=== PATIENT | female | born 1935 | race Caucasian/White ===

== ENCOUNTER 2019-11-20 10:01 | Outpatient (REF) | payer MEDICARE, OTHER, SELFPAY ==
[2019-11-20 11:59] LABS: Alanine Aminotransferase 12 U/L (0-31); Albumin Level 4.6 g/dL (3.5-5.0); Alkaline Phosphatase 35 U/L (39-117); Anion Gap 10 (12-20); Aspartate Amino Transferase 25 U/L (5-31); Bilirubin Total 0.3 mg/dL (0.0-1.0); Blood Urea Nitrogen 14 mg/dL (9-16); Calcium 9.6 mg/dL (8.4-10.2); Carbon Dioxide 28 mmol/L (22-29); Chloride 98 mmol/L (96-108); Cholesterol 212 mg/dL; Estimated Glomerular Filt Rate > 60; Glucose Fasting 101 mg/dL (60-99); HDL Cholesterol 91 mg/dL; LDL Cholesterol Calculated 111 mg/dl; Potassium 4.4 mmol/l (3.3-5.1); Sodium 132 mmol/L (135-145); Total Protein 7.1 g/dL (6.5-8.0); Triglycerides 54 mg/dL
[2019-11-20 12:29] LABS: Creatinine Urine 46.53 mg/dL; Microalbum/Creatinine Ratio Ur 32.2 ug/mg cr
== END 2019-11-20 10:02 | disposition home or self-care (01) ==
LOC: HO.LAB 10:01
PROVIDERS: Visit Provider Family Medicine
DX: Z00.00 Encounter for general adult medical examination without abnormal findings (principal); I10 Essential (primary) hypertension
CPT/HCPCS: 80053; 80061; 82043; 84443

== ENCOUNTER 2020-03-12 | Outpatient (REF) | payer MEDICARE, OTHER, SELFPAY | END 2020-03-12 00:01 | disposition home or self-care (01) | LOC: HO.VC | PROVIDERS: Visit Provider Internal Medicine | DX: Z23 Encounter for immunization (principal) | CPT/HCPCS: 0011A ==

== ENCOUNTER 2020-04-08 | Outpatient (REF) | payer MEDICARE, OTHER, SELFPAY | END 2020-04-08 00:01 | disposition home or self-care (01) | LOC: HO.VC | PROVIDERS: Visit Provider Internal Medicine | DX: Z23 Encounter for immunization (principal) | CPT/HCPCS: 0012A ==

== ENCOUNTER 2020-12-17 08:12 | Outpatient (REF) | payer MEDICARE, OTHER, SELFPAY ==
[2020-12-17 08:44] LABS: MANUAL DIFF FLAG NO
[2020-12-17 08:48] LABS: Basophils Percent Auto 0.7 % (0-2); Eosinophils Absolute Auto 0.2 X10*3/uL (0.0-0.4); Hemoglobin 11.7 g/dl (12.0-16.0); Imm Gran Abs Auto 0.01 X10*3/uL (0.00-0.03); Imm Gran Pct Auto 0.2 % (0.0-0.4); Lymphocytes Absolute Auto 1.9 X10*3/uL (1.2-4.9); Lymphocytes Percent Auto 34.2 % (20-40); Mean Corpuscular HGB Conc 33.4 g/dl (31.0-35.0); Mean Corpuscular Hemoglobin 32.7 pg (27.0-33.0); Mean Corpuscular Volume 97.8 fL (80.0-98.0); Mean Platelet Volume 10.9 fL (9.4-12.3); Monocytes Absolute Auto 0.6 X10*3/uL (0.1-1.2); Monocytes Percent Auto 10.3 % (2-11); Neutrophils Absolute Auto 2.9 x10*3/uL (2.0-8.3); Neutrophils Percent Auto 51.6 % (45-73); Platelet Count 244 X10*3/uL (160-400); Red Blood Count 3.58 X10*6/uL (4.20-5.50); Red Cell Distribution Width 13.2 % (11.0-16.0); White Blood Count 5.6 X10*3/uL (4.8-10.8)
[2020-12-17 09:13] LABS: Appearance Urine CLEAR; Color Urine YELLOW; Glucose Urine UA NEG (NEG); Leukocyte Esterase Urine NEG (NEG); Nitrite Urine NEG (NEG); Urine Blood NEG (NEG); Urine Ketones NEG (NEG); Urine Protein NEG (NEG-TRACE)
[2020-12-17 09:21] LABS: Alanine Aminotransferase 12 U/L (0-31); Albumin Level 4.5 g/dL (3.5-5.0); Alkaline Phosphatase 46 U/L (39-117); Anion Gap 11 (12-20); Aspartate Amino Transferase 26 U/L (5-31); Bilirubin Total 0.5 mg/dL (0.0-1.0); Blood Urea Nitrogen 18 mg/dL (9-16); Calcium 9.7 mg/dL (8.4-10.2); Carbon Dioxide 28 mmol/L (22-29); Chloride 103 mmol/L (96-108); Cholesterol 201 mg/dL; Estimated Glomerular Filt Rate > 60; Glucose Fasting 95 mg/dL (60-99); HDL Cholesterol 87 mg/dL; LDL Cholesterol Calculated 101 mg/dl; Sodium 138 mmol/L (135-145); Total Protein 7.2 g/dL (6.5-8.0); Triglycerides 67 mg/dL
[2020-12-17 09:36] LABS: Creatinine Urine 107.09 mg/dL; Microalbum/Creatinine Ratio Ur 10.2 ug/mg cr
[2020-12-17 09:41] LABS: TSH reflex Free T4 5.64 uIU/mL (0.32-4.0)
[2020-12-17 10:31] LABS: Free T4 (Free Thyroxine) 1.18 ng/dL (0.71-1.85)
== END 2020-12-17 08:13 | disposition home or self-care (01) ==
LOC: HO.LAB 08:12
PROVIDERS: PCP Family Medicine; Visit Provider Family Medicine
DX: Z00.00 Encounter for general adult medical examination without abnormal findings (principal); I10 Essential (primary) hypertension
CPT/HCPCS: 36415; 80053; 80061; 81003; 82043; 84439; 84443; 85025

== ENCOUNTER 2021-02-16 11:31 | Outpatient (REF) | payer MEDICARE, OTHER, SELFPAY ==
[2021-02-16 13:26] LABS: MANUAL DIFF FLAG NO
[2021-02-16 13:29] LABS: Basophils Percent Auto 0.4 % (0-2); Eosinophils Absolute Auto 0.1 X10*3/uL (0.0-0.4); Eosinophils Percent Auto 0.9 % (0-4); Hematocrit 35.5 % (37.0-47.0); Hemoglobin 11.7 g/dl (12.0-16.0); Imm Gran Abs Auto 0.01 X10*3/uL (0.00-0.03); Imm Gran Pct Auto 0.2 % (0.0-0.4); Mean Corpuscular Hemoglobin 32.4 pg (27.0-33.0); Mean Corpuscular Volume 98.3 fL (80.0-98.0); Mean Platelet Volume 11.1 fL (9.4-12.3); Monocytes Absolute Auto 0.4 X10*3/uL (0.1-1.2); Monocytes Percent Auto 7.4 % (2-11); Neutrophils Absolute Auto 3.9 x10*3/uL (2.0-8.3); Neutrophils Percent Auto 73.1 % (45-73); Platelet Count 220 X10*3/uL (160-400); Red Blood Count 3.61 X10*6/uL (4.20-5.50); Red Cell Distribution Width 13.3 % (11.0-16.0); White Blood Count 5.4 X10*3/uL (4.8-10.8)
[2021-02-16 13:50] LABS: Anion Gap 14 (12-20); Blood Urea Nitrogen 17 mg/dL (9-16); Calcium 10.2 mg/dL (8.4-10.2); Carbon Dioxide 27 mmol/L (22-29); Chloride 103 mmol/L (96-108); Estimated Glomerular Filt Rate > 60; Glucose Random 94 mg/dL (60-115); Potassium 4.3 mmol/L (3.3-5.1)
[2021-02-16 13:57] LABS: Sodium 140 mmol/L (135-145)
[2021-02-16 14:12] LABS: TSH reflex Free T4 3.06 uIU/mL (0.32-4.0)
[2021-02-16 14:13] LABS: Free T4 (Free Thyroxine) 1.23 ng/dL (0.71-1.85); Thyroid Stimulating Hormone 2.91 uIU/mL (0.32-4.0)
[2021-02-17 08:07] LABS: Triiodothyronine T3 Total 102 ng/dL (76-181)
== END 2021-02-16 11:32 | disposition home or self-care (01) ==
LOC: HO.WFDLDS 11:31
PROVIDERS: Visit Provider Family Medicine
DX: Z00.00 Encounter for general adult medical examination without abnormal findings (principal); I10 Essential (primary) hypertension; E03.9 Hypothyroidism, unspecified
CPT/HCPCS: 36415; 80048; 84439; 84443; 84480; 85025

== ENCOUNTER 2021-08-17 11:31 | Outpatient (REF) | payer MEDICARE, OTHER, SELFPAY ==
[2021-08-17 13:22] LABS: MANUAL DIFF FLAG NO
[2021-08-17 13:34] LABS: Basophils Percent Auto 0.5 % (0-2); Eosinophils Absolute Auto 0.1 X10*3/uL (0.0-0.4); Eosinophils Percent Auto 0.8 % (0-4); Hemoglobin 12.1 g/dl (12.0-16.0); Imm Gran Abs Auto 0.02 X10*3/uL (0.00-0.03); Imm Gran Pct Auto 0.3 % (0.0-0.4); Lymphocytes Absolute Auto 1.2 X10*3/uL (1.2-4.9); Lymphocytes Percent Auto 20.8 % (20-40); Mean Corpuscular HGB Conc 34.6 g/dl (31.0-35.0); Mean Corpuscular Hemoglobin 33.6 pg (27.0-33.0); Mean Corpuscular Volume 97.2 fL (80.0-98.0); Mean Platelet Volume 10.8 fL (9.4-12.3); Monocytes Absolute Auto 0.6 X10*3/uL (0.1-1.2); Monocytes Percent Auto 9.3 % (2-11); Neutrophils Percent Auto 68.3 % (45-73); Platelet Count 231 X10*3/uL (160-400); Red Cell Distribution Width 13.8 % (11.0-16.0); White Blood Count 5.9 X10*3/uL (4.8-10.8)
[2021-08-17 14:21] LABS: Free T4 (Free Thyroxine) 1.22 ng/dL (0.71-1.85)
[2021-08-19 05:06] LABS: Triiodothyronine T3 Total 69 ng/dL (76-181)
== END 2021-08-17 11:32 | disposition home or self-care (01) ==
LOC: HO.WFDLDS 11:31
PROVIDERS: Visit Provider Family Medicine
DX: Z00.00 Encounter for general adult medical examination without abnormal findings (principal); E03.9 Hypothyroidism, unspecified; D64.9 Anemia, unspecified
CPT/HCPCS: 36415; 84439; 84443; 84480; 85025

== ENCOUNTER 2021-10-19 13:02 | Outpatient (REF) | payer MEDICARE, OTHER, SELFPAY ==
[2021-10-19 13:19] LABS: MANUAL DIFF FLAG NO
[2021-10-19 13:45] LABS: Basophils Absolute Auto 0.1 X10*3/uL (0.0-0.2); Basophils Percent Auto 0.8 % (0-2); Eosinophils Absolute Auto 0.1 X10*3/uL (0.0-0.4); Eosinophils Percent Auto 1.1 % (0-4); Hematocrit 35.1 % (37.0-47.0); Hemoglobin 11.8 g/dl (12.0-16.0); Imm Gran Abs Auto 0.01 X10*3/uL (0.00-0.03); Imm Gran Pct Auto 0.2 % (0.0-0.4); Lymphocytes Absolute Auto 1.8 X10*3/uL (1.2-4.9); Lymphocytes Percent Auto 28.8 % (20-40); Mean Corpuscular HGB Conc 33.6 g/dl (31.0-35.0); Mean Corpuscular Hemoglobin 32.8 pg (27.0-33.0); Mean Corpuscular Volume 97.5 fL (80.0-98.0); Mean Platelet Volume 10.7 fL (9.4-12.3); Monocytes Absolute Auto 0.7 X10*3/uL (0.1-1.2); Monocytes Percent Auto 11.7 % (2-11); Neutrophils Absolute Auto 3.5 x10*3/uL (2.0-8.3); Neutrophils Percent Auto 57.4 % (45-73); Platelet Count 244 X10*3/uL (160-400); Red Cell Distribution Width 13.2 % (11.0-16.0); White Blood Count 6.2 X10*3/uL (4.8-10.8)
[2021-10-19 14:30] LABS: Alanine Aminotransferase 15 U/L (0-31); Albumin Level 4.7 g/dL (3.5-5.0); Alkaline Phosphatase 39 U/L (39-117); Anion Gap 17 (12-20); Aspartate Amino Transferase 25 U/L (5-31); Bilirubin Total 0.4 mg/dL (0.0-1.0); Blood Urea Nitrogen 16 mg/dL (9-16); Calcium 10.1 mg/dL (8.4-10.2); Carbon Dioxide 24 mmol/L (22-29); Chloride 101 mmol/L (96-108); Cholesterol 209 mg/dL; Estimated Glomerular Filt Rate > 60; Glucose Fasting 102 mg/dL (60-99); HDL Cholesterol 97 mg/dL; LDL Cholesterol Calculated 99 mg/dl; Potassium 5.1 mmol/L (3.3-5.1); Sodium 137 mmol/L (135-145); Total Protein 7.6 g/dL (6.5-8.0); Triglycerides 65 mg/dL
[2021-10-19 14:39] LABS: TSH reflex Free T4 0.32 uIU/mL (0.32-4.0)
[2021-10-19 14:47] LABS: Appearance Urine Clear; Color Urine Yellow; Glucose Urine UA Negative (Negative); Leukocyte Esterase Urine Trace (Negative); Nitrite Urine Negative (Negative); PH 7.5 (5.0-9.0); Urine Blood Negative (Negative); Urine Ketones Negative (Negative); Urine Protein Negative (Neg-Trace)
[2021-10-19 14:50] LABS: Bacteria Urine None Seen (None Seen); Hyaline Casts Urine 0-2 /LPF (0-2); RBC Urine 0-2 /HPF (0-2); Squamous Epithelial Cell Urine 0-2 /HPF (0-2); WBC Urine 0-5 /HPF (0-5)
[2021-10-19 15:53] LABS: Creatinine Urine 45.24 mg/dL; Microalbum/Creatinine Ratio Ur 28.7 ug/mg cr
== END 2021-10-19 13:03 | disposition home or self-care (01) ==
LOC: HO.LAB 13:02
PROVIDERS: PCP Family Medicine; Visit Provider Family Medicine
DX: Z00.00 Encounter for general adult medical examination without abnormal findings (principal); I10 Essential (primary) hypertension
CPT/HCPCS: 36415; 80053; 80061; 81001; 82043; 84443; 85025

== ENCOUNTER 2021-12-16 11:50 | Outpatient (REF) | payer MEDICARE, OTHER, SELFPAY ==
[2021-12-16 12:26] LABS: MANUAL DIFF FLAG NO
[2021-12-16 12:36] LABS: Basophils Percent Auto 0.7 % (0-2); Eosinophils Absolute Auto 0.1 X10*3/uL (0.0-0.4); Eosinophils Percent Auto 1.9 % (0-4); Hematocrit 36.8 % (37.0-47.0); Hemoglobin 12.1 g/dl (12.0-16.0); Imm Gran Abs Auto 0.02 X10*3/uL (0.00-0.03); Imm Gran Pct Auto 0.4 % (0.0-0.4); Lymphocytes Absolute Auto 1.5 X10*3/uL (1.2-4.9); Lymphocytes Percent Auto 28.2 % (20-40); Mean Corpuscular HGB Conc 32.9 g/dl (31.0-35.0); Mean Corpuscular Hemoglobin 32.3 pg (27.0-33.0); Mean Corpuscular Volume 98.1 fL (80.0-98.0); Mean Platelet Volume 10.8 fL (9.4-12.3); Monocytes Absolute Auto 0.5 X10*3/uL (0.1-1.2); Monocytes Percent Auto 9.8 % (2-11); Neutrophils Absolute Auto 3.2 x10*3/uL (2.0-8.3); Platelet Count 240 X10*3/uL (160-400); Red Blood Count 3.75 X10*6/uL (4.20-5.50); Red Cell Distribution Width 13.3 % (11.0-16.0); White Blood Count 5.4 X10*3/uL (4.8-10.8)
[2021-12-16 13:09] LABS: Alanine Aminotransferase 15 U/L (0-31); Albumin Level 4.9 g/dL (3.5-5.0); Alkaline Phosphatase 47 U/L (39-117); Anion Gap 18 (12-20); Aspartate Amino Transferase 27 U/L (5-31); Bilirubin Total 0.3 mg/dL (0.0-1.0); Blood Urea Nitrogen 15 mg/dL (9-16); Calcium 10.7 mg/dL (8.4-10.2); Carbon Dioxide 24 mmol/L (22-29); Chloride 102 mmol/L (96-108); Cholesterol 213 mg/dL; Estimated Glomerular Filt Rate > 60; Glucose Fasting 102 mg/dL (60-99); HDL Cholesterol 100 mg/dL; LDL Cholesterol Calculated 100 mg/dl; Potassium 4.6 mmol/L (3.3-5.1); Sodium 139 mmol/L (135-145); Total Protein 7.7 g/dL (6.5-8.0); Triglycerides 66 mg/dL
[2021-12-16 13:23] LABS: Free T4 (Free Thyroxine) 1.78 ng/dL (0.71-1.85); Thyroid Stimulating Hormone 0.21 uIU/mL (0.32-4.0)
[2021-12-16 14:11] LABS: Appearance Urine Clear; Color Urine Yellow; Glucose Urine UA Negative (Negative); Leukocyte Esterase Urine Negative (Negative); Nitrite Urine Negative (Negative); Specific Gravity - Urine 1.015 (1.005-1.025); Urine Blood Negative (Negative); Urine Ketones Negative (Negative); Urine Protein Negative (Neg-Trace)
[2021-12-16 15:05] LABS: Creatinine Urine 72.86 mg/dL; Microalbum/Creatinine Ratio Ur 13.7 ug/mg cr
[2021-12-18 05:47] LABS: Triiodothyronine T3 Total 98 ng/dL (76-181)
== END 2021-12-16 11:51 | disposition home or self-care (01) ==
LOC: HO.LAB 11:50
PROVIDERS: PCP Family Medicine; Visit Provider Family Medicine
DX: Z00.00 Encounter for general adult medical examination without abnormal findings (principal); E03.9 Hypothyroidism, unspecified; I10 Essential (primary) hypertension
CPT/HCPCS: 36415; 80053; 80061; 81003; 82043; 84439; 84443; 84480; 85025

== ENCOUNTER 2022-02-10 12:51 | Outpatient (REF) | payer MEDICARE, OTHER, SELFPAY ==
[2022-02-10 13:05] LABS: MANUAL DIFF FLAG NO
[2022-02-10 14:15] LABS: Basophils Absolute Auto 0.1 X10*3/uL (0.0-0.2); Basophils Percent Auto 0.6 % (0-2); Eosinophils Absolute Auto 0.1 X10*3/uL (0.0-0.4); Eosinophils Percent Auto 1.2 % (0-4); Hematocrit 35.2 % (37.0-47.0); Hemoglobin 11.5 g/dl (12.0-16.0); Imm Gran Abs Auto 0.02 X10*3/uL (0.00-0.03); Imm Gran Pct Auto 0.2 % (0.0-0.4); Lymphocytes Absolute Auto 1.8 X10*3/uL (1.2-4.9); Lymphocytes Percent Auto 21.4 % (20-40); Mean Corpuscular HGB Conc 32.7 g/dl (31.0-35.0); Mean Corpuscular Hemoglobin 31.9 pg (27.0-33.0); Mean Corpuscular Volume 97.8 fL (80.0-98.0); Monocytes Absolute Auto 0.7 X10*3/uL (0.1-1.2); Monocytes Percent Auto 8.8 % (2-11); Neutrophils Absolute Auto 5.6 x10*3/uL (2.0-8.3); Neutrophils Percent Auto 67.8 % (45-73); Platelet Count 269 X10*3/uL (160-400); Red Cell Distribution Width 13.2 % (11.0-16.0); White Blood Count 8.3 X10*3/uL (4.8-10.8)
[2022-02-10 14:20] LABS: Appearance Urine Clear; Color Urine Yellow; Glucose Urine UA Negative (Negative); Leukocyte Esterase Urine Trace (Negative); Nitrite Urine Negative (Negative); PH 7.5 (5.0-9.0); Specific Gravity - Urine 1.015 (1.005-1.025); UMIC TRIGGER UA YES; Urine Blood Negative (Negative); Urine Ketones Negative (Negative); Urine Protein Negative (Neg-Trace)
[2022-02-10 14:24] LABS: Estimated Average Glucose 100 mg/dL; Hemoglobin A1c % 5.1 %
[2022-02-10 14:27] LABS: Bacteria Urine None Seen (None Seen); Hyaline Casts Urine 0-2 /LPF (0-2); RBC Urine 0-2 /HPF (0-2); Squamous Epithelial Cell Urine 0-2 /HPF (0-2); WBC Urine 0-5 /HPF (0-5)
[2022-02-10 14:38] LABS: Anion Gap 14 (12-20); Blood Urea Nitrogen 20 mg/dL (9-16); Calcium 10.3 mg/dL (8.4-10.2); Carbon Dioxide 25 mmol/L (22-29); Chloride 101 mmol/L (96-108); Estimated Glomerular Filt Rate > 60; Glucose Random 101 mg/dL (60-115); Potassium 4.4 mmol/L (3.3-5.1); Sodium 136 mmol/L (135-145)
[2022-02-10 14:46] LABS: Free T4 (Free Thyroxine) 1.34 ng/dL (0.71-1.85)
[2022-02-10 14:52] LABS: TSH reflex Free T4 0.76 uIU/mL (0.32-4.0)
[2022-02-11 10:23] LABS: Triiodothyronine T3 Total 85 ng/dL (76-181)
== END 2022-02-10 12:52 | disposition home or self-care (01) ==
LOC: HO.LAB 12:51
PROVIDERS: PCP Family Medicine; Visit Provider Family Medicine
DX: Z00.00 Encounter for general adult medical examination without abnormal findings (principal); E03.9 Hypothyroidism, unspecified; R73.01 Impaired fasting glucose; D64.9 Anemia, unspecified
CPT/HCPCS: 36415; 80048; 81001; 83036; 84439; 84443; 84480; 85025

== ENCOUNTER 2022-02-26 15:18 | Outpatient (REF) | payer MEDICARE, OTHER, SELFPAY ==
--- NOTE | ~2022-02-26 | US_ITS ---
EXAMINATION: US EXTRACRANIAL CAROTID DUPLEX, BILATERAL CLINICAL INFORMATION: Carotid bruit COMPARISON: Carotid duplex on 05/24/16 TECHNIQUE: Real-time ultrasound and Doppler techniques (integrating B-mode 2-D vascular images, Doppler spectral analysis and color-flow Doppler imaging) were utilized to interrogate the extracranial carotid arteries, the vertebral arteries and proximal subclavian arteries bilaterally. The degree of stenosis is determined by criteria similar to NASCET. FINDINGS: Right Side: 1. There is mild atherosclerotic plaque seen in the bifurcation/proximal ICA region. 2. The common carotid artery PSV proximally is 117 cm/s and distally 80 cm/s. 3. The proximal internal carotid artery velocities are 65 cm/s systolic and 6 cm/s diastolic. 4. The proximal external carotid artery PSV is 97 cm/s. 5. The vertebral artery shows antegrade flow. 6. The subclavian artery waveforms are normal. Left Side: 1. There is mild atherosclerotic plaque seen in the bifurcation/proximal ICA region. 2. The common carotid artery PSV proximally is 108 cm/s and distally 85 cm/s. 3. The proximal internal carotid artery velocities are 89 cm/s systolic and 14 cm/s diastolic. 4. The proximal external carotid artery PSV is 79 cm/s. 5. The vertebral artery shows antegrade flow. 6. The subclavian artery waveforms are normal. US/US carotid duplex BI IMPRESSION: 1. RIGHT: Minimal, non-hemodynamically significant stenosis of the proximal right internal carotid artery corresponding to a 0-49% stenosis by velocity criteria. 2. LEFT: Minimal, non-hemodynamically significant stenosis of the proximal left internal carotid artery corresponding to a 0-49% stenosis by velocity criteria. 3. There is mild progression of disease on the right compared to the prior exam on 05/24/16.
== END 2022-02-26 15:19 | disposition home or self-care (01) ==
LOC: HO.US 15:18
PROVIDERS: PCP Family Medicine; Visit Provider Family Medicine
DX: R09.89 Other specified symptoms and signs involving the circulatory and respiratory systems (principal)
CPT/HCPCS: 93880

== ENCOUNTER 2022-04-21 14:27 | Outpatient (REF) | payer MEDICARE, OTHER, SELFPAY ==
[2022-04-21 14:45] LABS: MANUAL DIFF FLAG NO
[2022-04-21 15:56] LABS: Appearance Urine Clear; Color Urine Yellow; Glucose Urine UA Negative (Negative); Leukocyte Esterase Urine Negative (Negative); Nitrite Urine Negative (Negative); Urine Blood Negative (Negative); Urine Ketones Trace mg/dL (Negative); Urine Protein Negative (Neg-Trace)
[2022-04-21 15:56] LABS: Basophils Absolute Auto 0.1 X10*3/uL (0.0-0.2); Basophils Percent Auto 0.7 % (0-2); Eosinophils Absolute Auto 0.1 X10*3/uL (0.0-0.4); Eosinophils Percent Auto 1.4 % (0-4); Hematocrit 35.2 % (37.0-47.0); Hemoglobin 11.5 g/dl (12.0-16.0); Imm Gran Abs Auto 0.02 X10*3/uL (0.00-0.03); Imm Gran Pct Auto 0.3 % (0.0-0.4); Lymphocytes Percent Auto 27.9 % (20-40); Mean Corpuscular HGB Conc 32.7 g/dl (31.0-35.0); Mean Corpuscular Hemoglobin 31.8 pg (27.0-33.0); Mean Corpuscular Volume 97.2 fL (80.0-98.0); Mean Platelet Volume 10.5 fL (9.4-12.3); Monocytes Absolute Auto 0.8 X10*3/uL (0.1-1.2); Monocytes Percent Auto 10.5 % (2-11); Neutrophils Absolute Auto 4.2 x10*3/uL (2.0-8.3); Neutrophils Percent Auto 59.2 % (45-73); Platelet Count 297 X10*3/uL (160-400); Red Blood Count 3.62 X10*6/uL (4.20-5.50); Red Cell Distribution Width 14.1 % (11.0-16.0); White Blood Count 7.2 X10*3/uL (4.8-10.8)
[2022-04-21 16:22] LABS: Alanine Aminotransferase 15 U/L (0-31); Albumin Level 4.7 g/dL (3.5-5.0); Alkaline Phosphatase 45 U/L (39-117); Anion Gap 16 (12-20); Aspartate Amino Transferase 27 U/L (5-31); Bilirubin Total 0.5 mg/dL (0.0-1.0); Blood Urea Nitrogen 18 mg/dL (9-16); Calcium 10.1 mg/dL (8.4-10.2); Carbon Dioxide 26 mmol/L (22-29); Chloride 100 mmol/L (96-108); Estimated Glomerular Filt Rate > 60; Glucose Random 100 mg/dL (60-115); Potassium 5.3 mmol/L (3.3-5.1); Sodium 137 mmol/L (135-145); Total Protein 7.2 g/dL (6.5-8.0)
== END 2022-04-21 14:28 | disposition home or self-care (01) ==
LOC: HO.LAB 14:27
PROVIDERS: PCP Family Medicine; Visit Provider Family Medicine
DX: Z00.00 Encounter for general adult medical examination without abnormal findings (principal); D64.9 Anemia, unspecified
CPT/HCPCS: 36415; 80053; 81003; 85025

== ENCOUNTER 2022-07-27 10:46 | Outpatient (REF) | payer MEDICARE, OTHER, SELFPAY ==
--- NOTE | ~2022-07-27 | MM_ITS ---
EXAMINATION: BONE DENSITOMETRY CLINICAL INDICATION: Osteoporosis. COMPARISON: Previous BD dated 09/15/2018 and baseline BD dated 11/30/2007. TECHNIQUE: Using a [employer] DXA System (software version: 13.1) manufactured by [employer], dual-energy x-ray absorptiometry was performed of the lumbar spine and left hip. The images are of good technical quality. Summary results are attached. FINDINGS: AP SPINE L1-L4: Current: BMD 0.838 g/cm2, Z-score -0.4, T-score -2.8, osteoporosis, 0.2% increase from previous, 14.5% decrease from baseline (<5% change is not significant). Prior: BMD 0.836 g/cm2. Baseline: BMD 0.980 g/cm2. LEFT FEMUR, NECK: Current: BMD 0.798 g/cm2, Z-score 1.0, T-score -1.7, osteopenia. Prior: BMD 0.803 g/cm2. Baseline: BMD 0.917 g/cm2. LEFT FEMUR, TOTAL: Current: BMD 0.885 g/cm2, Z-score 1.7, T-score -1.0, normal, 0.2% decrease from previous, 14.5% decrease from baseline (<5% change is not significant). Prior: BMD 0.887 g/cm2. Baseline: BMD 1.035 g/cm2. IDENTIFIED RISK FACTORS: Menopause, hysterectomy, hyperthyroidism, bilateral oophorectomy, secondary osteoporosis. HISTORY OF FRACTURE: Other. MEDICATIONS: Calcium, vitamin D. MM/XR DEXA axial skeleton IMPRESSION: 1. DIAGNOSIS: Osteoporosis based on the lowest T-score value of -2.8 in the lumbar spine applying World Health Organization criteria. 2. 10-YEAR FRACTURE RISK PREDICTION, FRAX: According to the guidelines, FRAX calculation should only be performed on patients in the osteopenia bone density category. Therefore, FRAX was not performed on this patient. 3. Treatment Recommendations: NOF guidelines recommend consideration for treatment in postmenopausal women and men age 50 and older presenting with the following: -A hip or vertebral (clinical or morphometric) fracture. -T-score less than or equal to -2.5 at the femoral neck or spine after appropriate evaluation to exclude secondary causes. -Low bone mass at the hip or spine and a 10-year fracture probability by FRAX of greater than or equal to 3% for hip fracture or greater than or equal to 20% for major osteoporotic fracture based on the [place] adapted WHO algorithm. 4. Other Recommendations: All treatment decisions require clinical judgment and consideration of individual patient factors, including patient preferences, comorbidities, previous drug use, risk factors not captured in the FRAX model (e.g. frailty, falls, vitamin D deficiency, increased bone turnover, interval significant decline in bone density) and possible under or overestimation of fracture risk by FRAX. Additional medical evaluation for secondary cause of low bone mineral density may be appropriate. FUTURE SCAN RECOMMENDATION: People with diagnosed cases of osteoporosis or at high risk for fracture should have regular bone mineral density tests. For patients eligible for Medicare, routine testing is allowed once every 2 years. The testing frequency can be increased to one year for patients who have rapidly progressing disease, those who are receiving or discontinuing medical therapy to restore bone mass, or have additional risk factors.
--- NOTE | ~2022-07-27 | MM_ITS ---
EXAMINATION: MM SCREENING DIGITAL BREAST TOMOSYNTHESIS, BILATERAL CLINICAL INFORMATION: Screening. Asymptomatic. COMPARISON: Mammography: 11/10/2018 and studies dating back to 08/19/2011 TECHNIQUE: Digital breast tomosynthesis is performed in both the craniocaudal and mediolateral oblique views along with computer-aided detection (CAD). Synthesized 2-D images are generated from the tomosynthesis. FINDINGS: The breasts are extremely dense, which lowers the sensitivity of mammography (ACR BI-RADS breast composition Category d). No new abnormal dominant mass is identified. There is multiplicity and bilaterality of scattered and grouped calcifications. There is question of some new calcifications about the anterior-superior aspect of the left breast. However on tomosynthesis views, the calcifications appear to be vascular in nature. MM/MM tomosynthesis screening BI IMPRESSION: No significant changes from prior exam. ASSESSMENT: BI-RADS 2: Benign. RECOMMENDATION: Routine annual mammography screening. This patient's information was entered into a reminder system with a target due date for their next mammogram.
== END 2022-07-27 10:47 | disposition home or self-care (01) ==
LOC: HO.MAMMO 10:46
PROVIDERS: PCP Family Medicine; Visit Provider Family Medicine
DX: Z12.31 Encounter for screening mammogram for malignant neoplasm of breast (principal); Z13.820 Encounter for screening for osteoporosis; M81.0 Age-related osteoporosis without current pathological fracture; Z78.0 Asymptomatic menopausal state
CPT/HCPCS: 77063; 77067; 77080

== ENCOUNTER 2022-08-05 09:19 | Outpatient (REF) | payer MEDICARE, OTHER, SELFPAY ==
[2022-08-05 10:56] LABS: Alanine Aminotransferase 15 U/L (0-31); Albumin Level 4.3 g/dL (3.5-5.0); Alkaline Phosphatase 47 U/L (39-117); Anion Gap 11 (12-20); Aspartate Amino Transferase 25 U/L (5-31); Bilirubin Total 0.7 mg/dL (0.0-1.0); Blood Urea Nitrogen 15 mg/dL (9-16); Calcium 9.9 mg/dL (8.4-10.2); Carbon Dioxide 26 mmol/L (22-29); Chloride 103 mmol/L (96-108); Cholesterol 176 mg/dL; Estimated Glomerular Filt Rate > 60; Glucose Fasting 98 mg/dL (60-99); HDL Cholesterol 84 mg/dL; LDL Cholesterol Calculated 80 mg/dl; Potassium 3.9 mmol/L (3.3-5.1); Sodium 136 mmol/L (135-145); Total Protein 7.1 g/dL (6.5-8.0); Triglycerides 63 mg/dL
== END 2022-08-05 09:20 | disposition home or self-care (01) ==
LOC: HO.LAB 09:19
PROVIDERS: PCP Family Medicine; Visit Provider Family Medicine
DX: Z00.00 Encounter for general adult medical examination without abnormal findings (principal); E78.00 Pure hypercholesterolemia, unspecified
CPT/HCPCS: 36415; 80053; 80061

== ENCOUNTER 2022-11-08 11:39 | Outpatient (AMB) | payer MEDICARE, OTHER, SELFPAY ==
--- NOTE | 2022-11-08 11:50 | MHC.PC.OV ---
Vital Signs 11/08/22 11:51 Height 5 ft 2 in Weight 109 lb 4 oz BMI 20.0 BP 116/62 Blood Pressure Location Lt brachial Position Sitting Pulse 74 Pulse Source Pulse Oximeter Pulse Oximetry (%) 99 Oxygen Delivery Method Room Air Intake Visit Reasons: f/u HLD Intake Note: Patient is here to follow on HDL today. Allergies Seasonal Allergies Allergy (Verified 11/08/22 11:55) stuffy noise Tobacco use date assessed: 11/08/22 Fall risk assessment: No Falls in past year Last assessed Fall Risk: 11/08/22 Dental Screening Dental Screen Date: 11/08/22 Did you have a dental visit in the last 12 months?: Yes Did you have a dental problem in the last 6 months where you did not have access to dental care?: No Was dental information given to patient?: Patient has dentist HPI f/u HLD HPI Details 87 y/o female presents to f/u D. Had increased her artovastatin to 40mg daily. No recent labs to review. She denies any problems with her medication regimen. Mammogram 07/27/22 was fine. HPI Comments History of Present Illness Details Documentation assistance for Watson Erazo MD, was provided by Rakan Reeves, Manager [place] on 11/08/2022 12:45 PM EST. I, Dr. Erazo, have read, observed, and verified documentation. [facility] Medical History Hypercholesterolemia Osteoporosis Hypothyroidism Essential hypertension Surgical History Breast cyst History of tonsillectomy History of total hysterectomy with bilateral salpingo-oophorectomy (BSO) Family History Father Myocardial infarction CHF (congestive heart failure) HTN (hypertension) CVD (cardiovascular disease) Mother CVD (cardiovascular disease) Sister Breast cancer Sister Breast cancer Social History Housing: House Alcohol intake: never Patient Tobacco Use Status: Never used Tobacco e-Cigarette/Vaping Use: Never Used Second Hand Smoke Exposure: No service: No Current occupational status: retired Current occupational exposures/hazards: No Cognitive needs: No Hearing needs: No Vision needs: No Questionnaire PHQ-9 Over the last 2 weeks, how often have you been bothered by any of the following problems? 1. Little interest or pleasure in doing things: not at all 2. Feeling down, depressed, or hopeless: not at all 3. Trouble falling or staying asleep, or sleeping too much: not at all 4. Feeling tired or having little energy: not at all 5. Poor appetite or overeating: not at all 6. Feeling bad about yourself - or that you are a failure or have let yourself or your family down: not at all 7. Trouble concentrating on things, such as reading the newspaper or watching television: not at all 8. Moving or speaking so slowly that other people could have noticed. Or the opposite - being so fidgety or restless that you have been moving around a lot more than usual: not at all 9. Thoughts that you would be better off or of hurting yourself in some way: not at all Total score: 0 Source: Developed by Drs. Arthur Warren, Valeria Foster, Marco Spain and colleagues, with an educational brittany from [employer]. Thrive Questionnaire Date Thrive assessed: 02/16/21 AUDIT C Alcohol Use Questionnaire (AUDIT-C) 1. How often do you have a drink containing alcohol?: Never 3. How often do you have six or more drinks on one occasion?: Never Total Score: 0 LANNY-7 AMB Questionnaire LANNY-7 Date LANNY - 7 assessed: 11/08/22 Feeling nervous, anxious, or on edge: 0 = Not at all Not being able to stop or control worryin = Not at all Worrying too much about different things: 0 = Not at all Trouble relaxin = Not at all Being so restless that it is hard to sit still: 0 = Not at all Becoming easily annoyed or irritable: 0 = Not at all Feeling afraid as if something awful might happen: 0 = Not at all Total LANNY-7 score (0-4 normal; 5-9 mild; 10-14 moderate; 15-21 severe): 0 Source: Developed by Drs. Arthur Warren, Valeria B.W. Marco Foster and colleagues, with an educational brittany from [employer]. Physical exam (Primary Care) Vital Signs: Last Vital Signs Pulse 74 11/08/22 11:51 BP 116/62 11/08/22 11:51 Pulse Ox 99 11/08/22 11:51 Oxygen Delivery Method Room Air 11/08/22 11:51 BMI result Body Mass Index 20.0 Tobacco/Smoking Status: Tobacco use Status Tobacco use date assessed 11/08/22 11/08/22 11:57 Patient Tobacco Use Status Never used Tobacco 11/08/22 11:54 e-Cigarette/Vaping Use Never Used 11/08/22 11:54 PHQ-9: PHQ-9 Score PHQ-9: Total score 0 11/08/22 12:43 Thrive Assessment: Date of Thrive Assessment Date Thrive assessed 02/16/21 11/08/22 11:54 Assessment and Plan Assessment & Plan (1) Hypercholesterolemia: Code(s): E78.00 - Pure hypercholesterolemia, unspecified Plan: Had?switched?patient's?statin?medication?to?atorvastatin?and?then?increased?her?dose. She?has?not?had?her?lipids?checked?since?changing?her?dose. Tolerating?medication?as?prescribed She?will?get?her?lipids?drawn?this?week?and?we?can?follow-up?in?a?week?or?so?by?telemedicine. (2) Breast cancer screening by mammogram: Code(s): Z12.31 - Encounter for screening mammogram for malignant neoplasm of breast Plan: Mammogram?was?okay. (3) Screening for osteoporosis: Code(s): Z13.820 - Encounter for screening for osteoporosis Plan: Bone?density?showed?mild?improvement?in?osteoporosis?since?starting?alendronate Continue?alendronate?and?a?diet?with?plenty?of?calcium?and?vitamin-D Continue?walking Coding Level of Care Code Est Pt Level 3 (45242) Diagnoses Hypercholesterolemia E78.00 Breast cancer screening by mammogram Z12.31 Screening for osteoporosis Z13.820
[2022-11-08 11:51] VITALS: BP 116/62; PULSE 74; O2SAT 99
== END 2022-11-08 12:53 | disposition home or self-care (01) ==
PROVIDERS: PCP Family Medicine; Visit Provider Family Medicine
DX: E78.00 Pure hypercholesterolemia, unspecified (principal); Z12.31 Encounter for screening mammogram for malignant neoplasm of breast; Z13.820 Encounter for screening for osteoporosis
CPT/HCPCS: 99213

== ENCOUNTER 2022-11-08 12:57 | Outpatient (REF) | payer MEDICARE, OTHER, SELFPAY ==
[2022-11-08 15:15] LABS: Anion Gap 16 (12-20); Blood Urea Nitrogen 24 mg/dL (9-16); Calcium 10.6 mg/dL (8.4-10.2); Carbon Dioxide 24 mmol/L (22-29); Chloride 105 mmol/L (96-108); Cholesterol 161 mg/dL (<200); Estimated Glomerular Filt Rate > 60; Glucose Fasting 97 mg/dL (60-99); HDL Cholesterol 87 mg/dL (>40); LDL Cholesterol Calculated 66 mg/dL (<100); Potassium 4.5 mmol/L (3.3-5.1); Sodium 140 mmol/L (135-145); Triglycerides 42 mg/dL (<150)
== END 2022-11-08 12:58 | disposition home or self-care (01) ==
LOC: HO.WFDLDS 12:57
PROVIDERS: Visit Provider Family Medicine
DX: I65.29 Occlusion and stenosis of unspecified carotid artery (principal); I10 Essential (primary) hypertension
CPT/HCPCS: 36415; 80048; 80061

== ENCOUNTER 2023-03-01 10:35 | Outpatient (AMB) | payer MEDICARE, OTHER, SELFPAY ==
[2023-03-01 10:40] VITALS: BP 118/74; PULSE 77; O2SAT 96; BMI 19.7
--- NOTE | 2023-03-01 10:40 | A.OFFPC_ITS ---
Vital Signs 03/01/23 10:40 Height 5 ft 2 in Weight 107 lb 8 oz BMI 19.7 BP 118/74 Blood Pressure Location Lt brachial Position Sitting Pulse 77 Pulse Source Pulse Oximeter Pulse Oximetry (%) 96 Oxygen Delivery Method Room Air Intake Visit Reasons: f/u hypertension, thyroid levels Intake Note: Patient is here to follow up on hypertension and thyroid levels. Allergies Seasonal Allergies Allergy (Verified 03/01/23 10:42) stuffy noise Tobacco use date assessed: 03/01/23 Fall risk assessment: No Falls in past year Last assessed Fall Risk: 03/01/23 HPI f/u hypertension, thyroid levels HPI Details 87 y/o female presents to f/u hypertensi on, thyroid levels. Blood pressure today 118/74. She is on lisinopril 20mg, amlodipine 5mg. PFSH Medical History Hypercholesterolemia Osteoporosis Hypothyroidism Essential hypertension Surgical History Breast cyst History of tonsillectomy History of total hysterectomy with bilateral salpingo-oophorectomy (BSO) Family History Father Myocardial infarction CHF (congestive heart failure) HTN (hypertension) CVD (cardiovascular disease) Mother CVD (cardiovascular disease) Sister Breast cancer Sister Breast cancer Social History Housing: House Alcohol intake: never Patient Tobacco Use Status: Never used Tobacco e-Cigarette/Vaping Use: Never Used Second Hand Smoke Exposure: No service: No Current occupational status: retired Current occupational exposures/hazards: No Cognitive needs: No Hearing needs: No Vision needs: No Questionnaire Thrive Questionnaire Date Thrive assessed: 02/16/21 LANNY-7 AMB Questionnaire LANNY-7 Date LANNY - 7 assessed: 11/08/22 Source: Developed by Drs. Arthur Warren, Valeria Foster, Marco Spain and colleagues, with an educational brittany from [employer] Review of Systems Const Denies chills, Denies fatigue, Denies fever(s), Denies headache(s) and Denies weakness ENT Denies dizziness and Denies headache(s) Card Denies chest pain, Denies lightheadedness, Denies dyspnea and Denies other (Palpitations) Resp Denies cough, Denies dyspnea, Denies wheezing and Denies other ( shortness of breath) Musc Denies numbness and Denies tingling Neuro Denies dizziness, Denies headache(s), Denies numbness, Denies tingling, Denies paresthesias and Denies weakness Psych Denies anxiety and Denies depression Endo Denies fatigue Aller/Immun Denies wheezing Physical exam (Primary Care) Vital Signs: Last Vital Signs Pulse 77 03/01/23 10:40 BP 118/74 03/01/23 10:40 Pulse Ox 96 03/01/23 10:40 Oxygen Delivery Method Room Air 03/01/23 10:40 BMI result Body Mass Index 19.7 Tobacco/Smoking Status: Tobacco use Status Tobacco use date assessed 03/01/23 03/01/23 10:47 Patient Tobacco Use Status Never used Tobacco 03/01/23 10:47 e-Cigarette/Vaping Use Never Used 03/01/23 10:47 Thrive Assessment: Date of Thrive Assessment Date Thrive assessed 02/16/21 03/01/23 10:47 Const General: no acute distress and well developed Nutritional Appearance: well nourished Orientation/consciousness: patient oriented x3 HENMT Head: Yes normocephalic and Yes atraumatic Eyes General: appearance normal, both eyes and all related structures Pupils: Equal, round and reactive pupils present EOM: EOMs intact bilaterally Resp Effort & Inspection: normal respiratory effort Auscultation: clear to auscultation bilaterally Cardio Rate: regular rate Rhythm: regular rhythm Heart sounds: S1 normal heart sound present, S2 normal heart sound present, no gallops, no murmurs and no rubs Neuro General: patient oriented x3 and gait normal Cranial nerves: Yes Equal, round and reactive pupils present Psych Affect: normal affect Assessment and Plan Assessment & Plan (1) Essential hypertension: Code(s): I10 - Essential (primary) hypertension Plan: There?is?well?controlled.??Goal?is?less?than?130/80?for?patient?with?coronary?[place]?disease Continue?current?medications Continue?exercise (2) Hypothyroidism: Code(s): E03.9 - Hypothyroidism, unspecified Plan: Last?thyroid?hormone?check?in?February?2022?was?within?normal?limits?on?levothyro xine?112?mcg?daily Due?to?recheck this Labs?ordered Continue?current?medication?and?we?will?follow-up?on?this?at?her?next?visit Orders: Orders Comprehensive [place]. Panel Fast Today Z00.00 - Encounter for general adult medical examination without abnormal findings Complete Blood Count Auto Diff Today Z00.00 - Encounter for general adult medical examination without abnormal findings Lipid Panel Today Z00.00 - Encounter for general adult medical examination without abnormal findings Microalbumin, Random (w Creat) Today I10 - Essential (primary) hypertension Triiodothyronine T3 Total Today E03.9 - Hypothyroidism, unspecified Thyroid Stimulating Hormone Today E03.9 - Hypothyroidism, unspecified UA and rflx microscopic Today Z00.00 - Encounter for general adult medical examination without abnormal findings Free T4 (Free Thyroxine) Today E03.9 - Hypothyroidism, unspecified Coding Level of Care Code Est Pt Level 3 (18741) Diagnoses Essential hypertension I10 Hypothyroidism E03.9
== END 2023-03-01 11:10 | disposition home or self-care (01) ==
PROVIDERS: PCP Family Medicine; Visit Provider Family Medicine
DX: I10 Essential (primary) hypertension (principal); E03.9 Hypothyroidism, unspecified
CPT/HCPCS: 99213

== ENCOUNTER 2023-04-29 12:48 | Outpatient (AMB) | payer MEDICARE, OTHER, SELFPAY ==
--- NOTE | 2023-04-29 13:00 | A.OFFPC_ITS ---
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 Accompanied by: Self / Same As Patient Allergies Seasonal Allergies Allergy (Verified 04/29/23 13:06) stuffy noise Medication List - Last Reconciled 04/29/23 by Watson Erazo MD alendronate 70 mg PO QWEEK amlodipine 5 mg PO DAILY atorvastatin 40 mg PO BEDTIME 90 days fluticasone propionate 50 mcg/actuation 1 spray intranasal BID 90 days levothyroxine 112 mcg PO DAILY 90 days lisinopril 20 mg PO DAILY 90 days mecobalamin (vitamin B12) 1,000 mcg sublingual DAILY 90 days Tobacco use date assessed: 03/01/23 Fall risk assessment: No Falls in past year Last assessed Fall Risk: 04/29/23 Dental Screening Dental Screen Date: 04/29/23 Did you have a dental visit in the last 12 months?: Yes Did you have a dental problem in the last 6 months where you did not have access to dental care?: No Was dental information given to patient?: Patient has dentist HPI Extended exam with f/u labs and health maintenance HPI Details 87 y/o female presents for an extended e xam with f/u labs and health maintenance. No recent labs to review. She continues taking alendronate for osteoporosis. [facility] Medical History Hypercholesterolemia Osteoporosis Hypothyroidism Essential hypertension Surgical History Breast cyst History of tonsillectomy History of total hysterectomy with bilateral salpingo-oophorectomy (BSO) Family History Father Myocardial infarction CHF (congestive heart failure) HTN (hypertension) CVD (cardiovascular disease) Mother CVD (cardiovascular disease) Sister Breast cancer Sister Breast cancer Social History Housing: House Alcohol intake: never Patient Tobacco Use Status: Never used Tobacco e-Cigarette/Vaping Use: Never Used Second Hand Smoke Exposure: No service: No Current occupational status: retired Current occupational exposures/hazards: No Cognitive needs: No Hearing needs: No Vision needs: No Questionnaire PHQ-9 Over the last 2 weeks, how often have you been bothered by any of the following problems? 1. Little interest or pleasure in doing things: not at all 2. Feeling down, depressed, or hopeless: not at all 3. Trouble falling or staying asleep, or sleeping too much: not at all 4. Feeling tired or having little energy: not at all 5. Poor appetite or overeating: not at all 6. Feeling bad about yourself - or that you are a failure or have let yourself or your family down: not at all 7. Trouble concentrating on things, such as reading the newspaper or watching television: not at all 8. Moving or speaking so slowly that other people could have noticed. Or the opposite - being so fidgety or restless that you have been moving around a lot more than usual: not at all 9. Thoughts that you would be better off or of hurting yourself in some way: not at all Total score: 0 Depression Screening Interpretation: Negative Depression Screening Done: Yes 06168 - PHQ-9 Billing: Yes Source: Developed by Drs. Arthur Warren, Valeria Foster, Marco Spain and colleagues, with an educational brittany from [employer]. Thrive Questionnaire Date Thrive assessed: 04/29/23 I am a: Patient What is your living situation today?: I have a steady place to live Within the past 12 months, did the food you bought not last and you didn't have the money to get more?: Never true Within the past 12 months, did you worry whether your food would run out before you got money to buy more?: Never true Do you have trouble paying for medicines?: No Do you have trouble getting transportation to medical appointments?: No Do you have trouble paying your heating and electricity bill?: No Do you have trouble taking care of your child, family member or friend?: No Do you have trouble with day-to-day activities such as bathing, preparing meals, shopping, managing finances, etc.?: No Are you currently unemployed and looking for a job?: No Are you interested in more education?: No Please select the resources that you would like help with: None Currently or been in a relationship where the following occur: no concerns reported THRIVE Score: 0 AUDIT C Alcohol Use Questionnaire (AUDIT-C) 1. How often do you have a drink containing alcohol?: Never 3. How often do you have six or more drinks on one occasion?: Never Total Score: 0 LANNY-7 AMB Questionnaire LANNY-7 Date LANNY - 7 assessed: 04/29/23 Feeling nervous, anxious, or on edge: 0 = Not at all Not being able to stop or control worryin = Not at all Worrying too much about different things: 0 = Not at all Trouble relaxin = Not at all Being so restless that it is hard to sit still: 0 = Not at all Becoming easily annoyed or irritable: 0 = Not at all Feeling afraid as if something awful might happen: 0 = Not at all Total LANNY-7 score (0-4 normal; 5-9 mild; 10-14 moderate; 15-21 severe): 0 Source: Developed by Drs. Arthur Warren, Valeria Foster, Marco Spain and colleagues, with an educational brittany from [employer]. LANNY-7 Assessment Billing LANNY-7 Assessment Tool: LANNY-7 Assessment 92588 Review of Systems Const Denies chills, Denies fatigue, Denies fever(s), Denies headache(s) and Denies weakness Eyes Denies change in vision ENT Denies dizziness, Denies headache(s), Denies hearing loss, Denies nasal congestion, Denies sinus pain, Denies sinus pressure and Denies sore throat Card Denies chest pain, Denies lightheadedness, Denies dyspnea and Denies other (palpitations) Resp Denies cough, Denies dyspnea and Denies wheezing GI Denies abdominal pain, Denies melena, Denies hematochezia, Denies change in bowel habits, Denies dyspepsia and Denies nausea Denies hematuria and Denies dysuria Musc Denies abnormal gait, Denies myalgias, Denies arthralgias, Denies numbness and Denies tingling Skin/Breast Denies rash, Denies unusual bruising and Denies wounds Neuro Denies abnormal gait, Denies dizziness, Denies headache(s), Denies memory loss, Denies numbness, Denies Sensory deficit (Neuro), Denies tingling and Denies weakness Psych Denies anxiety, Denies depression and Denies memory loss Endo Denies cold intolerance, Denies fatigue, Denies heat intolerance, Denies polydipsia and Denies polyuria Hermilo/Lymph Denies easy bleeding and Denies easy bruising Aller/Immun Denies wheezing Physical exam (Primary Care) Vital Signs: Last Vital Signs Temp 97 F 04/29/23 13:01 Pulse 71 04/29/23 13:01 Resp 13 04/29/23 13:01 BP 122/66 04/29/23 13:01 Pulse Ox 99 04/29/23 13:01 Oxygen Delivery Method Room Air 04/29/23 13:01 BMI result Body Mass Index 19.5 Tobacco/Smoking Status: Tobacco use Status Tobacco use date assessed 03/01/23 04/29/23 13:09 Patient Tobacco Use Status Never used Tobacco 04/29/23 13:09 e-Cigarette/Vaping Use Never Used 04/29/23 13:09 PHQ-9: PHQ-9 Score PHQ-9: Total score 0 04/29/23 13:09 Depression Screening Interpretation: Negative Thrive Assessment: Date of Thrive Assessment Date Thrive assessed 04/29/23 04/29/23 13:09 Currently or been in a relationship where the following occur: no concerns reported Const General: no acute distress, well developed, alert and awake Nutritional Appearance: well nourished Orientation/consciousness: patient oriented x3 HENMT Head: Yes normocephalic and Yes atraumatic Ears: hearing grossly normal bilaterally and TM's normal bilaterally General nose exam: Normal external nose present and Normal nares present Mouth: Normal oral and palatal mucosa present and moist mucous membranes Teeth and gingiva: dentition normal Throat: Yes posterior oropharynx normal Eyes General: appearance normal, both eyes and all related structures Pupils: Equal, round and reactive pupils present and Pupil accommodation reflex normal EOM: EOMs intact bilaterally Neck Neck: Yes normal visual inspection, Yes no lymphadenopathy and Yes trachea midline Thyroid: Thyroid normal Carotids: no bruits Lymphatic: no lymphadenopathy noted Chest Chest palpation & inspection: normal inspection of the chest Resp Effort & Inspection: normal respiratory effort Auscultation: clear to auscultation bilaterally Cardio Rate: regular rate Rhythm: regular rhythm Heart sounds: S1 normal heart sound present, S2 normal heart sound present, no gallops, no murmurs and no rubs Bruits: no abdominal aortic bruits and no carotid bruits GI Palpation (GI): No Abdominal aortic bruit present, Soft to palpation, nontender, No hepatosplenomegaly present and No Rebound tenderness present Auscultation: normal bowel sounds General: Yes no CVA tenderness Back/Spine/Pelvis Back: no CVA tenderness Cervical Spine: cervical ROM normal and No Cervical spine tenderness Thoracic/Lumbar Spine: thoraco-lumbar ROM normal, No pain with thoraco-lumbar ROM, No thoracic spinal tenderness and No lumbar spinal tenderness Skin Lesions: no lesions Rashes: no rashes Trauma: no lacerations or abrasions Wounds: no wounds Nails: normal Neuro General: patient oriented x3 Cranial nerves: Yes Equal, round and reactive pupils present Cognition (Neuro): normal cognition Gait exam (Neuro): Normal gait present Motor exam (neuro): 5/5 motor strength present throughout Sensory Exam: No Sensory deficit (Neuro) Deep tendon reflexes (DTR's): Right patellar reflex intensity grade: 2+ and Left patellar reflex intensity grade: 2+ Extrem General: Yes normal to inspection and No edema Psych Appearance: grossly normal Affect: normal affect Attitude: cooperative Thought process: Normal thought process present Assessment and Plan Assessment & Plan (1) Essential hypertension: Code(s): I10 - Essential (primary) hypertension Plan: Blood?pressure?is?well?controlled. Goal?is?less?than?130/80 Continue?current?medication (2) Osteoporosis: Code(s): M81.0 - Age-related osteoporosis without current pathological fracture Plan: Continue?alendronate (3) Adult general medical exam: Code(s): Z00.00 - Encounter for general adult medical examination without abnormal findings Plan: 87-year-old?female?presents?for?an?extended?exam Encouraged?healthy?diet?with?active?lifestyle?and?plenty?of?exercise Coding Level of Care Code Est Pt Level 4 (78367) Diagnoses Essential hypertension I10 Osteoporosis M81.0 Adult general medical exam Z00.00 Additional Codes LANNY-7 Assessment Billing - LANNY-7 Assessment Tool: LNANY-7 Assessment [id number] ([id number])
[2023-04-29 13:01] VITALS: BP 122/66; PULSE 71; RESP 13; TEMP 36.1; O2SAT 99; BMI 19.5
== END 2023-04-29 13:56 | disposition home or self-care (01) ==
PROVIDERS: PCP Family Medicine; Visit Provider Family Medicine
DX: I10 Essential (primary) hypertension (principal); M81.0 Age-related osteoporosis without current pathological fracture; Z00.00 Encounter for general adult medical examination without abnormal findings
CPT/HCPCS: 99214

== ENCOUNTER 2023-07-18 10:21 | Outpatient (REF) | payer MEDICARE, OTHER, SELFPAY ==
[2023-07-18 10:34] LABS: MANUAL DIFF FLAG NO
[2023-07-18 11:06] LABS: Basophils Percent Auto 0.5 % (0-2); Eosinophils Percent Auto 0.7 % (0-4); Hematocrit 36.1 % (37.0-47.0); Hemoglobin 11.7 g/dl (12.0-16.0); Imm Gran Abs Auto 0.02 X10*3/uL (0.00-0.03); Imm Gran Pct Auto 0.3 % (0.0-0.4); Lymphocytes Absolute Auto 1.2 X10*3/uL (1.2-4.9); Lymphocytes Percent Auto 19.7 % (20-40); Mean Corpuscular HGB Conc 32.4 g/dl (31.0-35.0); Mean Corpuscular Hemoglobin 32.9 pg (27.0-33.0); Mean Corpuscular Volume 101.4 fL (80.0-98.0); Mean Platelet Volume 10.9 fL (9.4-12.3); Monocytes Absolute Auto 0.4 X10*3/uL (0.1-1.2); Neutrophils Absolute Auto 4.4 x10*3/uL (2.0-8.3); Neutrophils Percent Auto 71.8 % (45-73); Platelet Count 238 X10*3/uL (160-400); Red Blood Count 3.56 X10*6/uL (4.20-5.50); Red Cell Distribution Width 14.4 % (11.0-16.0); White Blood Count 6.1 X10*3/uL (4.8-10.8)
[2023-07-18 11:41] LABS: Alanine Aminotransferase 14 U/L (0-31); Albumin Level 4.3 g/dL (3.5-5.0); Alkaline Phosphatase 61 U/L (39-117); Anion Gap 16 (12-20); Aspartate Amino Transferase 24 U/L (5-31); Bilirubin Total 0.3 mg/dL (0.0-1.0); Blood Urea Nitrogen 13 mg/dL (9-16); Calcium 10.1 mg/dL (8.4-10.2); Carbon Dioxide 26 mmol/L (22-29); Chloride 104 mmol/L (96-108); Cholesterol 176 mg/dL (<200); Estimated Glomerular Filt Rate > 60; Glucose Fasting 96 mg/dL (60-99); HDL Cholesterol 89 mg/dL (>40); LDL Cholesterol Calculated 78 mg/dL (<100); Potassium 4.6 mmol/L (3.3-5.1); Sodium 141 mmol/L (135-145); Total Protein 7.2 g/dL (6.5-8.0); Triglycerides 47 mg/dL (<150)
[2023-07-18 12:00] LABS: Free T4 (Free Thyroxine) 1.33 ng/dL (0.71-1.85); Thyroid Stimulating Hormone 3.33 uIU/mL (0.32-4.0)
[2023-07-18 12:01] LABS: Creatinine Urine 207.54 mg/dL; Microalbum/Creatinine Ratio Ur 33.2 ug/mg cr (<30)
[2023-07-18 12:18] LABS: Appearance Urine Clear; Color Urine Dark Yellow; Glucose Urine UA Negative (Negative); Leukocyte Esterase Urine Trace (Negative); Nitrite Urine Negative (Negative); PH 6.5 (5.0-9.0); UMIC TRIGGER UA YES; Urine Blood Negative (Negative); Urine Ketones Trace mg/dL (Negative); Urine Protein Trace mg/dL (Neg-Trace)
[2023-07-18 12:40] LABS: Bacteria Urine None Seen (None Seen); RBC Urine 0-2 /HPF (0-2); Squamous Epithelial Cell Urine 0-2 /HPF (0-2); WBC Urine 0-5 /HPF (0-5)
[2023-07-19 08:53] LABS: Triiodothyronine T3 Total 77 ng/dL (76-181)
== END 2023-07-18 10:22 | disposition home or self-care (01) ==
LOC: HO.LAB 10:21
PROVIDERS: PCP Family Medicine; Visit Provider Family Medicine
DX: Z00.00 Encounter for general adult medical examination without abnormal findings (principal); I10 Essential (primary) hypertension; E03.9 Hypothyroidism, unspecified
CPT/HCPCS: 36415; 80053; 80061; 81001; 81003; 82043; 82570; 84439; 84443; 84480; 85025

== ENCOUNTER 2023-07-19 10:34 | Outpatient (AMB) | payer MEDICARE, OTHER, SELFPAY ==
[2023-07-19 10:36] VITALS: BP 100/58; PULSE 80; O2SAT 98; BMI 19.0
--- NOTE | 2023-07-19 10:36 | MHC.PC.OV ---
Vital Signs 07/19/23 10:36 Height 5 ft 2 in Weight 104 lb BMI 19.0 BP 100/58 L Blood Pressure Location Lt brachial Position Sitting Pulse 80 Pulse Source Pulse Oximeter Pulse Oximetry (%) 98 Oxygen Delivery Method Room Air Intake Visit Reasons: f/u CPE-labs via telemedicine Intake Note: Patient is here for follow up on labs today. Allergies Seasonal Allergies Allergy (Verified 07/19/23 10:43) stuffy noise Tobacco use date assessed: 07/19/23 Fall risk assessment: No Falls in past year Last assessed Fall Risk: 07/19/23 Dental Screening Dental Screen Date: 07/19/23 Did you have a dental visit in the last 12 months?: Yes Did you have a dental problem in the last 6 months where you did not have access to dental care?: No Was dental information given to patient?: Patient has dentist HPI f/u CPE-labs via telemedicine HPI Details 88 y/o female presents to f/u CPE-labs. Labs were drawn 07/18/23. Reviewed labs with pt. Ongoing anemia. Triglycerides 47. TC 176. LDL 78. HDL 89. She is on artovastatin 40mg. Thyroid levels are fine. She is on levothyroxine 112 mcg daily. Slight microalbuminuria. Blood pressure today 100/58. She is on amlodipine 5mg, lisinopril 20mg daily. [facility] Medical History Hypercholesterolemia Osteoporosis Hypothyroidism Essential hypertension Surgical History Breast cyst History of tonsillectomy History of total hysterectomy with bilateral salpingo-oophorectomy (BSO) Family History Father Myocardial infarction CHF (congestive heart failure) HTN (hypertension) CVD (cardiovascular disease) Mother CVD (cardiovascular disease) Sister Breast cancer Sister Breast cancer Social History Housing: House Alcohol intake: never Patient Tobacco Use Status: Never used Tobacco e-Cigarette/Vaping Use: Never Used Second Hand Smoke Exposure: No service: No Current occupational status: retired Current occupational exposures/hazards: No Cognitive needs: No Hearing needs: No Vision needs: No Questionnaire Thrive Questionnaire Date Thrive assessed: 04/29/23 LANNY-7 AMB Questionnaire LANNY-7 Date LANNY - 7 assessed: 04/29/23 Source: Developed by Drs. Arthur Warren, Valeria Foster, Marco Spain and colleagues, with an educational brittany from [employer]. Review of Systems Const Denies chills, Denies fatigue, Denies fever(s), Denies headache(s) and Denies weakness ENT Denies dizziness and Denies headache(s) Card Denies dyspnea Resp Denies cough, Denies dyspnea, Denies wheezing and Denies other (shortness of breath) Musc Denies numbness and Denies tingling Neuro Denies dizziness, Denies headache(s), Denies numbness, Denies tingling and Denies weakness Psych Denies anxiety and Denies depression Endo Denies fatigue Aller/Immun Denies wheezing Physical exam (Primary Care) Vital Signs: Last Vital Signs Pulse 80 07/19/23 10:36 BP 100/58 L 07/19/23 10:36 Pulse Ox 98 07/19/23 10:36 Oxygen Delivery Method Room Air 07/19/23 10:36 BMI result Body Mass Index 19.0 Tobacco/Smoking Status: Tobacco use Status Tobacco use date assessed 07/19/23 07/19/23 10:46 Patient Tobacco Use Status Never used Tobacco 07/19/23 10:38 e-Cigarette/Vaping Use Never Used 07/19/23 10:38 Thrive Assessment: Date of Thrive Assessment Date Thrive assessed 04/29/23 07/19/23 10:38 Const General: well developed; No acute distress Nutritional Appearance: well nourished Orientation/consciousness: patient oriented x3 [facility]: Yes normocephalic and Yes atraumatic Eyes General: appearance normal, both eyes and all related structures Pupils: Equal, round and reactive pupils present EOM: EOMs intact bilaterally Resp Effort & Inspection: normal respiratory effort Auscultation: clear to auscultation bilaterally Cardio Rate: regular rate Rhythm: regular rhythm Heart sounds: S1 normal heart sound present, S2 normal heart sound present, no gallops, no murmurs and no rubs Neuro General: patient oriented x3 and gait normal Cranial nerves: Yes Equal, round and reactive pupils present Psych Affect: normal affect Assessment and Plan Assessment & Plan (1) Hypercholesterolemia: Code(s): E78.00 - Pure hypercholesterolemia, unspecified Plan: Lipids?are?well?controlled?on?atorvastatin Continue?current?medication?regimen (2) Hypothyroidism: Code(s): E03.9 - Hypothyroidism, unspecified Plan: Thyroid?hormone?levels?are?within?normal?limits Continue?levothyroxine?as?prescribed (3) Essential hypertension: Code(s): I10 - Essential (primary) hypertension Plan: Blood?pressure?is?a?little?on?the?lower?side?today Generally?controlled. No?medication?changes?and?I?advised?good?hydration (4) Mild anemia: Code(s): D64.9 - Anemia, unspecified Plan: Mild?anemia?which?is?improving Mild?macrocytic?shift?likely?secondary?to?improving?anemia Will?follow Continue?diet?with?plenty?of?iron Coding Level of Care Code Est Pt Level 4 (38852) Diagnoses Hypercholesterolemia E78.00 Hypothyroidism E03.9 Essential hypertension I10 Mild anemia D64.9
== END 2023-07-19 11:00 | disposition home or self-care (01) ==
PROVIDERS: PCP Family Medicine; Visit Provider Family Medicine
DX: E78.00 Pure hypercholesterolemia, unspecified (principal); E03.9 Hypothyroidism, unspecified; I10 Essential (primary) hypertension; D64.9 Anemia, unspecified
CPT/HCPCS: 99214

== ENCOUNTER 2023-11-01 10:33 | Outpatient (AMB) | payer MEDICARE, OTHER, SELFPAY ==
--- NOTE | 2023-11-01 10:53 | A.OFFPC_ITS ---
Vital Signs 11/01/23 10:54 Height 5 ft 2 in Weight 96 lb 4 oz BMI 17.6 BP 110/50 L Blood Pressure Location Lt brachial Position Sitting Respiration 12 Pulse 70 Pulse Source Pulse Oximeter Temp 97.9 F Temp Source Tympanic Pulse Oximetry (%) 97 Oxygen Delivery Method Room Air Intake Visit Reasons: f/u hypertension, chronic conditions Intake Note: follow for HTN and chronic condition Allergies Seasonal Allergies Allergy (Verified 11/01/23 10:54) stuffy noise Tobacco use date assessed: 07/19/23 Dental Screening Dental Screen Date: 07/19/23 HPI f/u hypertension, chronic conditions HPI Details 88 y/o female presents to f/u hypertensi on, chronic conditions. Blood pressure today 110/50, 70p. She is on lisinopril 20mg, amlodipine 5 mg daily. Mild anemia from labs drawn in July. Pt's family reports memory changes. They deny any personality changes. [facility] Medical History Hypercholesterolemia Osteoporosis Hypothyroidism Essential hypertension Surgical History Breast cyst History of tonsillectomy History of total hysterectomy with bilateral salpingo-oophorectomy (BSO) Family History Father Myocardial infarction CHF (congestive heart failure) HTN (hypertension) CVD (cardiovascular disease) Mother CVD (cardiovascular disease) Sister Breast cancer Sister Breast cancer Social History Housing: House Alcohol intake: never Patient Tobacco Use Status: Never used Tobacco e-Cigarette/Vaping Use: Never Used Second Hand Smoke Exposure: No service: No Current occupational status: retired Current occupational exposures/hazards: No Cognitive needs: No Hearing needs: No Vision needs: No Questionnaire Thrive Questionnaire Date Thrive assessed: 04/29/23 LANNY-7 AMB Questionnaire LANNY-7 Date LANNY - 7 assessed: 04/29/23 Source: Developed by Drs. Arthur Warren, Valeria Foster, Marco Spain and colleagues, with an educational brittany from [employer] Review of Systems Const Denies chills, Denies fatigue, Denies fever(s), Denies headache(s) and Denies weakness ENT Denies dizziness and Denies headache(s) Card Denies dyspnea Resp Denies cough, Denies dyspnea, Denies wheezing and Denies other (shortness of breath) Musc Denies numbness and Denies tingling Neuro Denies dizziness, Denies headache(s), Denies numbness, Denies tingling and Denies weakness Psych Denies anxiety and Denies depression Endo Denies fatigue Aller/Immun Denies wheezing Physical exam (Primary Care) Vital Signs: Last Vital Signs Temp 97.9 F 11/01/23 10:54 Pulse 70 11/01/23 10:54 Resp 12 11/01/23 10:54 BP 110/50 L 11/01/23 10:54 Pulse Ox 97 11/01/23 10:54 Oxygen Delivery Method Room Air 11/01/23 10:54 BMI result Body Mass Index 17.6 Tobacco/Smoking Status: Tobacco use Status Tobacco use date assessed 07/19/23 11/01/23 11:01 Patient Tobacco Use Status Never used Tobacco 11/01/23 11:01 e-Cigarette/Vaping Use Never Used 11/01/23 11:01 Thrive Assessment: Date of Thrive Assessment Date Thrive assessed 04/29/23 11/01/23 11:01 Const General: well developed; No acute distress Nutritional Appearance: well nourished Orientation/consciousness: patient oriented x3 HENMT Head: Yes normocephalic and Yes atraumatic Eyes General: appearance normal, both eyes and all related structures Pupils: Equal, round and reactive pupils present EOM: EOMs intact bilaterally Resp Effort & Inspection: normal respiratory effort Auscultation: clear to auscultation bilaterally Cardio Rate: regular rate Rhythm: regular rhythm Heart sounds: S1 normal heart sound present, S2 normal heart sound present, no gallops, no murmurs and no rubs Neuro General: patient oriented x3 and gait normal Cranial nerves: Yes Equal, round and reactive pupils present Psych Affect: normal affect Assessment and Plan Assessment & Plan (1) Essential hypertension: Code(s): I10 - Essential (primary) hypertension Plan: Blood?pressure?is?controlled.??Goal?is?less?than?140/90 Continue?current?medication Hydrate?well?and?eat?regular?meals (2) Mild anemia: Code(s): D64.9 - Anemia, unspecified Plan: Patient?had?had?mild?anemia?which?was?improving Continue?B12 Recheck?H&H?prior?to?next?visit?and?we?can?review (3) Memory changes: Code(s): R41.3 - Other amnesia Plan: Patient?is?scoring?around?23?for?a?mini-mental?status?exam No?focal?neurologic?deficits?and?ambulating?well Referred?to?[facility]?memory?clinic Orders: Referrals Neuropsychiatry Referral R41.3 - Other amnesia Coding Level of Care Code Est Pt Level 4 (90711) Diagnoses Essential hypertension I10 Mild anemia D64.9 Memory changes R41.3
[2023-11-01 10:54] VITALS: BP 110/50; PULSE 70; RESP 12; TEMP 36.6; O2SAT 97; BMI 17.6
== END 2023-11-01 11:50 | disposition home or self-care (01) ==
PROVIDERS: PCP Family Medicine; Visit Provider Family Medicine
DX: I10 Essential (primary) hypertension (principal); D64.9 Anemia, unspecified; R41.3 Other amnesia

== ENCOUNTER → 2023-11-01 10:33 | Outpatient (BNVA) | payer MEDICARE, OTHER, SELFPAY | PROVIDERS: PCP Family Medicine; Visit Provider Family Medicine | DX: I10 Essential (primary) hypertension (principal); D64.9 Anemia, unspecified; R41.3 Other amnesia | CPT/HCPCS: 99212 ==

== ENCOUNTER → 2023-12-30 11:30 | Outpatient (BNVA) | payer MEDICARE, OTHER, SELFPAY | PROVIDERS: PCP Family Medicine; Visit Provider Family Medicine ==

== ENCOUNTER 2024-01-25 10:30 | Outpatient (AMB) | payer MEDICARE, OTHER, SELFPAY ==
--- NOTE | 2024-01-25 11:14 | MHC.PC.OV ---
Vital Signs 01/25/24 11:17 Height 5 ft 2 in Weight 105 lb 4 oz BMI 19.2 BP 120/60 Blood Pressure Location Lt brachial Position Sitting Respiration 18 Pulse 78 Pulse Source Pulse Oximeter Pulse Oximetry (%) 98 Oxygen Delivery Method Room Air Intake Visit Reasons: f/u neuro Intake Note: f/u neuro eval Allergies Seasonal Allergies Allergy (Verified 01/25/24 11:15) stuffy noise Medication List - Last Reconciled 01/25/24 by Watson Erazo MD alendronate 70 mg PO QWEEK amlodipine 5 mg PO DAILY atorvastatin 40 mg PO BEDTIME 90 days donepezil 5 mg PO DAILY 30 days fluticasone propionate 50 mcg/actuation 1 spray intranasal BID 90 days levothyroxine 112 mcg PO DAILY 90 days lisinopril 20 mg PO DAILY 90 days mecobalamin (vitamin B12) 1,000 mcg sublingual DAILY 90 days Tobacco use date assessed: 07/19/23 Dental Screening Dental Screen Date: 07/19/23 HPI f/u neuro HPI Details 88 y/o female presents to f/u neuropsych evaluation. Was referred to neuropsych to assess for current level of cognitive function. 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 They had recommended MRI, labs check for homocysteine, methylmalonic acid and vitamin D25 levels. They had also recommended a cholinesterase inhibitor such as donepezil, galantamine or rivastigmine. [facility] Medical History Hypercholesterolemia Osteoporosis Hypothyroidism Essential hypertension Surgical History Breast cyst History of tonsillectomy History of total hysterectomy with bilateral salpingo-oophorectomy (BSO) Family History Father Myocardial infarction CHF (congestive heart failure) HTN (hypertension) CVD (cardiovascular disease) Mother CVD (cardiovascular disease) Sister Breast cancer Sister Breast cancer Social History Housing: House Alcohol intake: never Patient Tobacco Use Status: Never used Tobacco e-Cigarette/Vaping Use: Never Used Second Hand Smoke Exposure: No service: No Current occupational status: retired Current occupational exposures/hazards: No Cognitive needs: No Hearing needs: No Vision needs: No Questionnaire Thrive Questionnaire Date Thrive assessed: 12/30/23 I am a: Patient What is your living situation today?: I have a steady place to live Within the past 12 months, did the food you bought not last and you didn't have the money to get more?: Never true Within the past 12 months, did you worry whether your food would run out before you got money to buy more?: Never true Do you have trouble paying for medicines?: No Do you have trouble getting transportation to medical appointments?: No Do you have trouble paying your heating and electricity bill?: No Do you have trouble taking care of your child, family member or friend?: No Do you have trouble with day-to-day activities such as bathing, preparing meals, shopping, managing finances, etc.?: Yes Are you currently unemployed and looking for a job?: No Are you interested in more education?: No Please select the resources that you would like help with: None Currently or been in a relationship where the following occur: No concerns reported THRIVE Score: 0 LANNY-7 AMB Questionnaire LANNY-7 Date LANNY - 7 assessed: 04/29/23 Source: Developed by Drs. Arthur Warren, Valeria Foster, Marco Spain and colleagues, with an educational brittany from [employer]. Review of Systems Const Denies chills, Denies fatigue, Denies fever(s), Denies headache(s) and Denies weakness ENT Denies dizziness and Denies headache(s) Card Denies dyspnea Resp Denies cough, Denies dyspnea, Denies wheezing and Denies other (shortness of breath) Musc Denies numbness and Denies tingling Neuro Denies dizziness, Denies headache(s), Denies numbness, Denies tingling and Denies weakness Psych Denies anxiety and Denies depression Endo Denies fatigue Aller/Immun Denies wheezing Physical exam (Primary Care) Vital Signs: Last Vital Signs Pulse 78 01/25/24 11:17 Resp 18 01/25/24 11:17 BP 120/60 01/25/24 11:17 Pulse Ox 98 01/25/24 11:17 Oxygen Delivery Method Room Air 01/25/24 11:17 BMI result Body Mass Index 19.2 Tobacco/Smoking Status: Tobacco use Status Tobacco use date assessed 07/19/23 01/25/24 11:23 Patient Tobacco Use Status Never used Tobacco 01/25/24 11:23 e-Cigarette/Vaping Use Never Used 01/25/24 11:23 Thrive Assessment: Date of Thrive Assessment Date Thrive assessed 12/30/23 01/25/24 11:23 Currently or been in a relationship where the following occur: No concerns reported Const General: well developed; No acute distress Nutritional Appearance: well nourished Orientation/consciousness: patient oriented x3 [facility] Head: Yes normocephalic and Yes atraumatic Eyes General: appearance normal, both eyes and all related structures Pupils: Equal, round and reactive pupils present EOM: EOMs intact bilaterally Resp Effort & Inspection: normal respiratory effort Auscultation: clear to auscultation bilaterally Cardio Rate: regular rate Rhythm: regular rhythm Heart sounds: S1 normal heart sound present, S2 normal heart sound present, no gallops, no murmurs and no rubs Neuro General: patient oriented x3 and gait normal Cranial nerves: Yes Equal, round and reactive pupils present Psych Affect: normal affect Coding Level of Care Code Est Pt Level 3 (70719) Diagnoses Memory changes R41.3 Assessment & Plan Assessment & Plan (1) Memory changes: Code(s): R41.3 - Other amnesia Category: Medical Plan: Memory?and?cognition?changes. Patient?was?evaluated?by?neuropsychiatry?and?they feel?that?she?has ikbd-zm-chbuwrpk?dementia?with?likely?multifactorial?underlying?causes?including?Alzheimer's?and?vascular?dementia. Recommended?checking?an?MRI?to?rule?out?reversible?causes Recommended?donepezil?and?we?will?try?a?small?dose?of?this. Will?follow-up?with?patient?on?MRI?in?forty-six?weeks. At?the?time?we?will?also?readdress issues?regarding?driving. May?need?a?driving?evaluation?from?[facility]. Orders: Orders MR head/brain wo con Today R41.3 - Other amnesia Medications: New donepezil 5 mg PO DAILY 30 days 30 tabs 2RF R41.3 - Other amnesia
[2024-01-25 11:17] VITALS: BP 120/60; PULSE 78; RESP 18; O2SAT 98; BMI 19.2
== END 2024-01-25 11:58 | disposition home or self-care (01) ==
PROVIDERS: PCP Family Medicine; Visit Provider Family Medicine
DX: R41.3 Other amnesia (principal)

== ENCOUNTER → 2024-01-25 10:30 | Outpatient (BNVA) | payer MEDICARE, OTHER, SELFPAY | PROVIDERS: PCP Family Medicine; Visit Provider Family Medicine | DX: R41.3 Other amnesia (principal) | CPT/HCPCS: 99212 ==

== ENCOUNTER → 2024-02-08 12:38 | Outpatient (BNV) | payer MEDICARE, OTHER, SELFPAY | PROVIDERS: PCP Family Medicine; Visit Provider Specialist | DX: R41.3 Other amnesia (principal) | CPT/HCPCS: 70551 ==

== ENCOUNTER 2024-02-08 12:41 | Outpatient (REF) | payer MEDICARE, OTHER, SELFPAY | END 2024-02-08 12:42 | disposition home or self-care (01) | LOC: HO.MRI 12:41 | PROVIDERS: PCP Family Medicine; Visit Provider Family Medicine | DX: R41.3 Other amnesia (principal) | CPT/HCPCS: 70551 ==

== ENCOUNTER 2024-03-21 11:10 | Outpatient (AMB) | payer MEDICARE, OTHER, SELFPAY ==
--- NOTE | 2024-03-21 11:11 | MHC.PC.OV ---
Vital Signs 03/21/24 11:14 Height 5 ft 2 in Weight 105 lb 8 oz BMI 19.3 BP 110/60 Blood Pressure Location Lt brachial Position Sitting Respiration 20 Pulse 72 Pulse Source Pulse Oximeter Temp 97.6 F Temp Source Oral Pulse Oximetry (%) 97 Oxygen Delivery Method Room Air Intake Visit Reasons: f/u MRI Intake Note: MRI review Allergies Seasonal Allergies Allergy (Verified 03/21/24 11:13) stuffy noise Tobacco use date assessed: 07/19/23 Dental Screening Dental Screen Date: 07/19/23 HPI f/u MRI HPI Details 88 y/o female presents to f/u MRI for mild to moderate dementia. Had also started her on donepezil as recommended by neuropsychiatyr. Neuropsych had believed she has mild to moderate dementia based on hx, presentation and test scores. HPI Comments History of Present Illness Details Documentation assistance for Watson Erazo MD, was provided by Rakan Reeves,? Pattern Hand on 03/21/2024 at 11:34 AM EST. I, Dr. Erazo, have read, observed, and verified documentation. ?? PFSH Medical History Hypercholesterolemia Osteoporosis Hypothyroidism Essential hypertension Surgical History Breast cyst History of tonsillectomy History of total hysterectomy with bilateral salpingo-oophorectomy (BSO) Family History Father Myocardial infarction CHF (congestive heart failure) HTN (hypertension) CVD (cardiovascular disease) Mother CVD (cardiovascular disease) Sister Breast cancer Sister Breast cancer Social History Housing: House Alcohol intake: never Patient Tobacco Use Status: Never used Tobacco e-Cigarette/Vaping Use: Never Used Second Hand Smoke Exposure: No service: No Current occupational status: retired Current occupational exposures/hazards: No Cognitive needs: No Hearing needs: No Vision needs: No Questionnaire PHQ-9 Over the last 2 weeks, how often have you been bothered by any of the following problems? 1. Little interest or pleasure in doing things: not at all 2. Feeling down, depressed, or hopeless: not at all 3. Trouble falling or staying asleep, or sleeping too much: not at all 4. Feeling tired or having little energy: not at all 5. Poor appetite or overeating: not at all 6. Feeling bad about yourself - or that you are a failure or have let yourself or your family down: not at all 7. Trouble concentrating on things, such as reading the newspaper or watching television: not at all 8. Moving or speaking so slowly that other people could have noticed. Or the opposite - being so fidgety or restless that you have been moving around a lot more than usual: not at all 9. Thoughts that you would be better off or of hurting yourself in some way: not at all Total score: 0 Source: Developed by Drs. Arthur Warren, Valeria Foster, Marco Spain and colleagues, with an educational brittany from [employer]. Thrive Questionnaire Date Thrive assessed: 12/30/23 I am a: Patient What is your living situation today?: I have a steady place to live Within the past 12 months, did the food you bought not last and you didn't have the money to get more?: Never true Within the past 12 months, did you worry whether your food would run out before you got money to buy more?: Never true Do you have trouble paying for medicines?: No Do you have trouble getting transportation to medical appointments?: No Do you have trouble paying your heating and electricity bill?: No Do you have trouble taking care of your child, family member or friend?: No Do you have trouble with day-to-day activities such as bathing, preparing meals, shopping, managing finances, etc.?: No Are you currently unemployed and looking for a job?: No Are you interested in more education?: No Please select the resources that you would like help with: None Currently or been in a relationship where the following occur: I choose not to answer THRIVE Score: 0 AUDIT C Alcohol Use Questionnaire (AUDIT-C) 1. How often do you have a drink containing alcohol?: Never Total Score: 0 LANNY-7 AMB Questionnaire LANNY-7 Date LANNY - 7 assessed: 04/29/23 Feeling nervous, anxious, or on edge: 0 = Not at all Not being able to stop or control worryin = Not at all Worrying too much about different things: 0 = Not at all Trouble relaxin = Not at all Being so restless that it is hard to sit still: 3 = Nearly every day Becoming easily annoyed or irritable: 0 = Not at all Feeling afraid as if something awful might happen: 0 = Not at all Total LANNY-7 score (0-4 normal; 5-9 mild; 10-14 moderate; 15-21 severe): 3 Source: Developed by Drs. Arthur Warren, Valeria Foster, Marco Spain and colleagues, with an educational brittany from [employer]. Review of Systems Const Denies chills, Denies fatigue, Denies fever(s), Denies headache(s) and Denies weakness ENT Denies dizziness and Denies headache(s) Card Denies dyspnea Resp Denies cough, Denies dyspnea, Denies wheezing and Denies other (shortness of breath) Musc Denies numbness and Denies tingling Neuro Denies dizziness, Denies headache(s), Denies numbness, Denies tingling and Denies weakness Psych Denies anxiety and Denies depression Endo Denies fatigue Aller/Immun Denies wheezing Physical exam (Primary Care) Vital Signs: Last Vital Signs Temp 97.6 F 03/21/24 11:14 Pulse 72 03/21/24 11:14 Resp 20 03/21/24 11:14 BP 110/60 03/21/24 11:14 Pulse Ox 97 03/21/24 11:14 Oxygen Delivery Method Room Air 03/21/24 11:14 BMI result Body Mass Index 19.3 Tobacco/Smoking Status: Tobacco use Status Tobacco use date assessed 07/19/23 03/21/24 11:12 Patient Tobacco Use Status Never used Tobacco 03/21/24 11:12 e-Cigarette/Vaping Use Never Used 03/21/24 11:12 PHQ-9: PHQ-9 Score PHQ-9: Total score 0 03/21/24 11:21 Thrive Assessment: Date of Thrive Assessment Date Thrive assessed 12/30/23 03/21/24 11:12 Currently or been in a relationship where the following occur: I choose not to answer Const General: well developed; No acute distress Nutritional Appearance: well nourished Orientation/consciousness: patient oriented x3 [facility] Head: Yes normocephalic and Yes atraumatic Eyes General: appearance normal, both eyes and all related structures Pupils: Equal, round and reactive pupils present EOM: EOMs intact bilaterally Resp Effort & Inspection: normal respiratory effort Auscultation: clear to auscultation bilaterally Cardio Rate: regular rate Rhythm: regular rhythm Heart sounds: S1 normal heart sound present, S2 normal heart sound present, no gallops, no murmurs and no rubs Neuro General: patient oriented x3 and gait normal Cranial nerves: Yes Equal, round and reactive pupils present Psych Affect: normal affect Coding Level of Care Code Est Pt Level 3 (21262) Diagnoses Memory changes R41.3 Dementia F03.90 Assessment & Plan Assessment & Plan (1) Memory changes: Code(s): R41.3 - Other amnesia Category: Medical Plan: Ongoing?in?worsening?memory?and?cognition?changes. Patient?had?seen?neuropsychiatry?in?she?is?scoring?and?is?moderate?dementia. Neuropsych?had?recommended?an?MRI?to?review?for?reversible?causes?as?well?as?homocystine,?methylmalonic?acid?and?vitamin-D?levels. MRI?shows?atrophy?and?T2?signal?likely?representing microvascular?changes.??No?reversible?causes. He?also?recommended?starting?donepezil?5?mg?daily?and?she?is?tolerating?this.??Daughter?says?she?is?not?noticing?significant?improvements?however. Will?increase?donepezil?to?10?mg?daily.??Reduce?to?5?mg?daily?or?discontinue?if?any?adverse?effects Will?also?give?her?a?script?for?Cerefolin-NAC which?contains?mixed?volume?in?and?can?discontinue?her?B12?tab. Maintain/optimize?blood?pressure?blood?sugar?and?cholesterol?levels.??Will?monitor?for?proper?vascular?health. I?have?ordered?the?above?mentioned?labs?and?we?can?review?at?next?visit Had?a?long?discussion?with?patient?regarding?driving.??Neuropsychiatry?felt?that?this?may?be?concerning?and?recommended?in?on?the?road?driving?test. I?have?fill?now?are?in?the?forms?for?evaluation?today (2) Dementia: Code(s): F03.90 - Unspecified dementia, unspecified severity, without behavioral disturbance, psychotic disturbance, mood disturbance, and anxiety Category: Medical Plan: Moderate?dementia See?above Orders: Orders Vitamin D 25-OH Total Today E55.9 - Vitamin D deficiency, unspecified Methylmalonic Acid Today F03.90 - Unspecified dementia, unspecified severity, without behavioral disturbance, psychotic disturbance, mood disturbance, and anxiety, R41.3 - Other amnesia Basic Metabolic Panel Today R41.3 - Other amnesia, Z00.00 - Encounter for general adult medical examination without abnormal findings Homocysteine Today F03.90 - Unspecified dementia, unspecified severity, without behavioral disturbance, psychotic disturbance, mood disturbance, and anxiety, R41.3 - Other amnesia Medications: New xckranxfpd-uwskkph-Q-mefolate 600-2-6 mg ([employer]) 1 tab PO DAILY 90 days 90 tabs 2RF R41.3 - Other amnesia Changed From donepezil 5 mg PO DAILY 30 days 30 tabs 2RF R41.3 - Other amnesia To donepezil 10 mg PO DAILY 30 days 30 tabs 2RF R41.3 - Other amnesia Discontinued mecobalamin (vitamin B12) place tablet under tongue and allow to dissolve for at least30 secs before swallowing Discontinued Reason: Doctor's Order 1,000 mcg sublingual DAILY 90 days 90 tabs 2RF
[2024-03-21 11:14] VITALS: BP 110/60; PULSE 72; RESP 20; TEMP 36.4; O2SAT 97; BMI 19.3
== END 2024-03-21 11:44 | disposition home or self-care (01) ==
PROVIDERS: PCP Family Medicine; Visit Provider Family Medicine
DX: R41.3 Other amnesia (principal); F03.90 Unspecified dementia, unspecified severity, without behavioral disturbance, psychotic disturbance, mood disturbance, and anxiety

== ENCOUNTER → 2024-03-21 11:10 | Outpatient (BNVA) | payer MEDICARE, OTHER, SELFPAY | PROVIDERS: PCP Family Medicine; Visit Provider Family Medicine | DX: R41.3 Other amnesia (principal); F03.90 Unspecified dementia, unspecified severity, without behavioral disturbance, psychotic disturbance, mood disturbance, and anxiety | CPT/HCPCS: 99212 ==

== ENCOUNTER 2024-04-11 13:51 | Outpatient (REF) | payer MEDICARE, OTHER, SELFPAY ==
[2024-04-11 14:39] LABS: Anion Gap 16 (12-20); Blood Urea Nitrogen 26 mg/dL (9-16); Calcium 10.1 mg/dL (8.4-10.2); Carbon Dioxide 19 mmol/L (22-29); Chloride 107 mmol/L (96-108); Estimated Glomerular Filt Rate > 60; Glucose Random 127 mg/dL (60-115); Potassium 4.5 mmol/L (3.3-5.1); Sodium 137 mmol/L (135-145)
[2024-04-11 14:55] LABS: Vitamin D 25-OH Total 40.5 ng/mL (>30)
[2024-04-11 15:42] LABS: Appearance Urine Clear; Color Urine Yellow; Glucose Urine UA Negative (Negative); Leukocyte Esterase Urine Negative (Negative); Nitrite Urine Negative (Negative); Specific Gravity - Urine 1.025 (1.005-1.025); Urine Blood Negative (Negative); Urine Ketones 15 mg/dL (Negative); Urine Protein Trace mg/dL (Neg-Trace)
[2024-04-12 16:27] LABS: Homocysteine 14.2 umol/L (<10.4)
[2024-04-14 17:03] LABS: Methylmalonic Acid 188 nmol/L (85-423)
== END 2024-04-11 13:52 | disposition home or self-care (01) ==
LOC: HO.LAB 13:51
PROVIDERS: PCP Family Medicine; Visit Provider Family Medicine
DX: Z00.00 Encounter for general adult medical examination without abnormal findings (principal); E55.9 Vitamin D deficiency, unspecified; R41.3 Other amnesia; F03.90 Unspecified dementia, unspecified severity, without behavioral disturbance, psychotic disturbance, mood disturbance, and anxiety; Z13.6 Encounter for screening for cardiovascular disorders
CPT/HCPCS: 36415; 80048; 81003; 82306; 83090; 83921

== ENCOUNTER 2024-04-18 14:37 | Outpatient (AMB) | payer MEDICARE, OTHER, SELFPAY ==
--- NOTE | 2024-04-18 14:48 | A.OFFPC_ITS ---
Vital Signs 04/18/24 14:51 Height 5 ft 2 in Weight 101 lb BMI 18.5 BP 120/50 L Blood Pressure Location Rt brachial Position Sitting Respiration 12 Pulse 78 Pulse Source Pulse Oximeter Temp 98.2 F Temp Source Oral Pulse Oximetry (%) 98 Oxygen Delivery Method Room Air Intake Visit Reasons: F/U on meds, bloodwork Intake Note: follow up on lab review and medication Tissue Specialist Required: No Allergies Seasonal Allergies Allergy (Verified 04/18/24 14:49) stuffy noise Medication List - Last Reconciled 04/18/24 by Watson Erazo MD ondrdkaenn-svrvaou-K-mefolate 600-2-6 mg (Cerefolin [facility]) 1 tab PO DAILY 90 days alendronate 70 mg PO QWEEK amlodipine 5 mg PO DAILY atorvastatin 40 mg PO BEDTIME 90 days donepezil 10 mg PO DAILY 30 days fluticasone propionate 50 mcg/actuation 1 spray intranasal BID 90 days levothyroxine 112 mcg PO DAILY 90 days lisinopril 20 mg PO DAILY 90 days Tobacco use date assessed: 07/19/23 Dental Screening Dental Screen Date: 07/19/23 HPI F/U on meds, bloodwork HPI Details Patient?presents?to?follow-up?lab?work?and?follow-up Dementia Increased?donepezil?and?send?a?script?for Cerefolin by?recommendation?of?her?neuropsych?evaluation. Also?check?lab?work?including?methylmalonic?acid?and?homocystine?levels. Homocystine?level?is?elevated Patient?has?not?received Cerefolin. [facility] Medical History Hypercholesterolemia Osteoporosis Hypothyroidism Essential hypertension Surgical History Breast cyst History of tonsillectomy History of total hysterectomy with bilateral salpingo-oophorectomy (BSO) Family History Father Myocardial infarction CHF (congestive heart failure) HTN (hypertension) CVD (cardiovascular disease) Mother CVD (cardiovascular disease) Sister Breast cancer Sister Breast cancer Social History (Reviewed 06/11/24 @ 10:45 by Mariely Messer [facility] House Alcohol intake: never Patient Tobacco Use Status: Never used Tobacco e-Cigarette/Vaping Use: Never Used Second Hand Smoke Exposure: No service: No Current occupational status: retired Current occupational exposures/hazards: No Cognitive needs: No Hearing needs: No Vision needs: No Questionnaire Thrive Questionnaire Date Thrive assessed: 03/21/24 I am a: Patient What is your living situation today?: I have a steady place to live Within the past 12 months, did the food you bought not last and you didn't have the money to get more?: Never true Within the past 12 months, did you worry whether your food would run out before you got money to buy more?: Never true Do you have trouble paying for medicines?: No Do you have trouble getting transportation to medical appointments?: No Do you have trouble paying your heating and electricity bill?: No Do you have trouble taking care of your child, family member or friend?: No Do you have trouble with day-to-day activities such as bathing, preparing meals, shopping, managing finances, etc.?: No Are you currently unemployed and looking for a job?: No Are you interested in more education?: No Please select the resources that you would like help with: None Currently or been in a relationship where the following occur: I choose not to answer THRIVE Score: 0 LANNY-7 AMB Questionnaire LANNY-7 Date LANNY - 7 assessed: 04/29/23 Source: Developed by Drs. Arthur Warren, Valeria Foster, Marco Spain and colleagues, with an educational brittany from [employer]. Review of Systems Const Denies chills, Denies fatigue, Denies fever(s), Denies headache(s) and Denies weakness ENT Denies dizziness and Denies headache(s) Card Denies chest pain, Denies lightheadedness, Denies dyspnea and Denies other (Palpitations) Resp Denies cough, Denies dyspnea, Denies wheezing and Denies other ( shortness of breath) Musc Denies numbness and Denies tingling Neuro Denies dizziness, Denies headache(s), Denies numbness, Denies tingling, Denies paresthesias and Denies weakness Psych Denies anxiety and Denies depression Endo Denies fatigue Aller/Immun Denies wheezing Physical exam (Primary Care) Vital Signs: Last Vital Signs Temp 98.2 F 04/18/24 14:51 Pulse 78 04/18/24 14:51 Resp 12 04/18/24 14:51 BP 120/50 L 04/18/24 14:51 Pulse Ox 98 04/18/24 14:51 Oxygen Delivery Method Room Air 04/18/24 14:51 BMI result Body Mass Index 18.5 Tobacco/Smoking Status: Tobacco use Status Tobacco use date assessed 07/19/23 04/18/24 14:56 Patient Tobacco Use Status Never used Tobacco 04/18/24 14:56 e-Cigarette/Vaping Use Never Used 04/18/24 14:56 Thrive Assessment: Date of Thrive Assessment Date Thrive assessed 03/21/24 04/18/24 14:56 Currently or been in a relationship where the following occur: I choose not to answer Const General: no acute distress and well developed Nutritional Appearance: well nourished [facility] Head: Yes normocephalic and Yes atraumatic Eyes General: appearance normal, both eyes and all related structures Pupils: Equal, round and reactive pupils present EOM: EOMs intact bilaterally Resp Effort & Inspection: normal respiratory effort Auscultation: clear to auscultation bilaterally Cardio Rate: regular rate Rhythm: regular rhythm Heart sounds: S1 normal heart sound present, S2 normal heart sound present, no gallops, no murmurs and no rubs Neuro Other: Pleasant but mildly confused. Accompanied by her daughter General: gait normal Cranial nerves: Yes Equal, round and reactive pupils present Psych Affect: normal affect Coding Level of Care Code Est Pt Level 3 (03618) Diagnoses Dementia F03.90 Assessment & Plan Assessment & Plan (1) Dementia: Code(s): F03.90 - Unspecified dementia, unspecified severity, without behavioral disturbance, psychotic disturbance, mood disturbance, and anxiety Category: Medical Plan: Tolerating?donepezil?10?mg?daily?but?no significant?improvements?noticed?by?patient?or?daughter. Did?not?receive Cereflolin. I?have?recent?this?today?but?advised?her?to?ask?pharmacist about ?it?as?it?may?need?an?adjustment?in?script. Homocystine?level?is?elevated Also?recommended?a?B?complex?vitamin Continue?donepezil Hydrate?well Daughter?is?working?on?scheduling?Patient's [facility] driving?evaluation. Orders: Orders Comprehensive Met. Panel Today F03.90 - Unspecified dementia, unspecified severity, without behavioral disturbance, psychotic disturbance, mood disturbance, and anxiety UA and rflx microscopic Today F03.90 - Unspecified dementia, unspecified severity, without behavioral disturbance, psychotic disturbance, mood disturbance, and anxiety, Z00.00 - Encounter for general adult medical examination without abnormal findings Complete Blood Count Auto Diff Today F03.90 - Unspecified dementia, unspecified severity, without behavioral disturbance, psychotic disturbance, mood disturbance, and anxiety, Z00.00 - Encounter for general adult medical examination without abnormal findings Homocysteine Today F03.90 - Unspecified dementia, unspecified severity, without behavioral disturbance, psychotic disturbance, mood disturbance, and anxiety TSH reflex Free T4 Today F03.90 - Unspecified dementia, unspecified severity, without behavioral disturbance, psychotic disturbance, mood disturbance, and anxiety, Z00.00 - Encounter for general adult medical examination without abnormal findings Medications: Refilled ottmytrfop-oahgwmp-H-mefolate 600-2-6 mg ([employer] [facility]) 1 tab PO DAILY 90 days 90 tabs 2RF R41.3 - Other amnesia
[2024-04-18 14:51] VITALS: BP 120/50; PULSE 78; RESP 12; TEMP 36.8; O2SAT 98; BMI 18.5
== END 2024-04-18 15:32 | disposition home or self-care (01) ==
LOC: HO.HMCFM 14:38
PROVIDERS: PCP Family Medicine; Visit Provider Family Medicine
DX: F03.90 Unspecified dementia, unspecified severity, without behavioral disturbance, psychotic disturbance, mood disturbance, and anxiety (principal)

== ENCOUNTER → 2024-04-18 14:37 | Outpatient (BNVA) | payer MEDICARE, OTHER, SELFPAY | PROVIDERS: PCP Family Medicine; Visit Provider Family Medicine | DX: F03.90 Unspecified dementia, unspecified severity, without behavioral disturbance, psychotic disturbance, mood disturbance, and anxiety (principal) | CPT/HCPCS: 99212 ==

== ENCOUNTER 2024-08-07 10:29 | Outpatient (REF) | payer MEDICARE, OTHER, SELFPAY ==
[2024-08-07 10:45] LABS: MANUAL DIFF FLAG NO
[2024-08-07 11:23] LABS: Appearance Urine Cloudy; Glucose Urine UA 100 mg/dL (Negative); PH 6.0 (5.0-9.0); Specific Gravity - Urine >= 1.030 (1.005-1.025); UMIC TRIGGER UA YES
[2024-08-07 11:37] LABS: Hematocrit 32.5 % (37.0-47.0); Hemoglobin 10.2 g/dl (12.0-16.0); Imm Gran Abs Auto 0.01 X10*3/uL (0.00-0.03); Imm Gran Pct Auto 0.1 % (0.0-0.4); Lymphocytes Absolute Auto 2.0 X10*3/uL (1.2-4.9); Mean Corpuscular HGB Conc 31.4 g/dl (31.0-35.0); Mean Corpuscular Hemoglobin 30.7 pg (27.0-33.0); Mean Corpuscular Volume 97.9 fL (80.0-98.0); NRBC Abs Auto 0.000 X10*3/uL (0.0-0.012); NRBC Pct Auto 0.0 /100WBC (0.0-0.2); Platelet Count 232 X10*3/uL (160-400); Red Blood Count 3.32 X10*6/uL (4.20-5.50); White Blood Count 6.9 X10*3/uL (4.8-10.8)
[2024-08-07 12:16] LABS: Alanine Aminotransferase 15 U/L (0-31); Albumin Level 3.9 g/dL (3.5-5.0); Alkaline Phosphatase 54 U/L (39-117); Anion Gap 14 (12-20); Aspartate Amino Transferase 27 U/L (5-31); Blood Urea Nitrogen 32 mg/dL (9-16); Calcium 9.2 mg/dL (8.4-10.2); Carbon Dioxide 23 mmol/L (22-29); Chloride 109 mmol/L (96-108); Estimated Glomerular Filt Rate 52; Potassium 4.2 mmol/L (3.3-5.1); Sodium 142 mmol/L (135-145); Total Protein 7.0 g/dL (6.5-8.0)
[2024-08-07 12:54] LABS: Free T4 (Free Thyroxine) 1.71 ng/dL (0.71-1.85)
== END 2024-08-07 10:30 | disposition home or self-care (01) ==
LOC: HO.LAB 10:29
PROVIDERS: PCP Family Medicine; Visit Provider Family Medicine
DX: Z00.00 Encounter for general adult medical examination without abnormal findings (principal); F03.90 Unspecified dementia, unspecified severity, without behavioral disturbance, psychotic disturbance, mood disturbance, and anxiety
CPT/HCPCS: 36415; 80053; 81001; 83090; 84439; 84443; 85025

== ENCOUNTER 2024-08-14 10:58 | Outpatient (AMB) | payer MEDICARE, OTHER, SELFPAY ==
--- NOTE | 2024-08-14 11:58 | A.OFFPC_ITS ---
Vital Signs 08/14/24 12:02 Height 5 ft 2 in Weight 98 lb 6 oz BMI 18.0 BP 120/62 Blood Pressure Location Rt brachial Position Sitting Respiration 14 Pulse 86 Pulse Source Pulse Oximeter Temp 98.6 F Temp Source Temporal Artery Scan Pulse Oximetry (%) 98 Oxygen Delivery Method Room Air Intake Visit Reasons: f/u labs Intake Note: Carolina presents in the office today to go over her latest lab results. Allergies Seasonal Allergies Allergy (Verified 08/14/24 12:00) stuffy noise Medication List - Last Reconciled 08/14/24 by Watson Erazo MD sgfualoacc-fsqficx-I-mefolate 600-2-6 mg ([employer] Brain coin4ce) 1 tab PO DAILY 90 days alendronate 70 mg PO QWEEK amlodipine 5 mg PO DAILY atorvastatin 40 mg PO BEDTIME 90 days donepezil 10 mg PO DAILY 30 days fluticasone propionate 50 mcg/actuation 1 spray intranasal BID 90 days levothyroxine 112 mcg PO DAILY 90 days lisinopril 20 mg PO DAILY 90 days Tobacco use date assessed: 08/14/24 Fall risk assessment: No Falls in past year Last assessed Fall Risk: 08/14/24 Dental Screening Dental Screen Date: 08/14/24 Did you have a dental visit in the last 12 months?: No Did you have a dental problem in the last 6 months where you did not have access to dental care?: No Was dental information given to patient?: Patient has dentist HPI f/u labs HPI Details 89 y/o female presents to f/u dementia, chronic conditions. Labs drawn 08/07/24. Reviewed labs with pt. Mild anemia. TSH 0.02 uIU/mL. Free T4 1.71 ng/dL. Blood pressure today 120/62, 86p. She is on amlodipine 5mg, lisinopril 20mg daily. HPI Comments History of Present Illness Details Documentation assistance for Watson Erazo MD, was provided by Rakan Reeves,? Balance Bridge Inspector on 08/14/2024 at 12:43 PM EDIN. I, Dr. Erazo, have read, observ ed, and verified documentation. ?? PFSH Medical History Hypercholesterolemia Osteoporosis Hypothyroidism Essential hypertension Surgical History Breast cyst History of tonsillectomy History of total hysterectomy with bilateral salpingo-oophorectomy (BSO) Family History Father Myocardial infarction CHF (congestive heart failure) HTN (hypertension) CVD (cardiovascular disease) Mother CVD (cardiovascular disease) Sister Breast cancer Sister Breast cancer Social History (Updated 08/14/24 @ 12:02 by Kimberly Lei MA) Housing: House Alcohol intake: never Patient Tobacco Use Status: Never used Tobacco e-Cigarette/Vaping Use: Never Used Second Hand Smoke Exposure: No service: No Current occupational status: retired Current occupational exposures/hazards: No Cognitive needs: No Hearing needs: No Vision needs: No Questionnaire Thrive Questionnaire Date Thrive assessed: 03/21/24 I am a: Patient What is your living situation today?: I have a steady place to live Within the past 12 months, did the food you bought not last and you didn't have the money to get more?: Never true Within the past 12 months, did you worry whether your food would run out before you got money to buy more?: Never true Do you have trouble paying for medicines?: No Do you have trouble getting transportation to medical appointments?: No Do you have trouble paying your heating and electricity bill?: No Do you have trouble taking care of your child, family member or friend?: No Do you have trouble with day-to-day activities such as bathing, preparing meals, shopping, managing finances, etc.?: No Are you currently unemployed and looking for a job?: No Are you interested in more education?: No Please select the resources that you would like help with: None Currently or been in a relationship where the following occur: I choose not to answer THRIVE Score: 0 LANNY-7 AMB Questionnaire LANNY-7 Date LANNY - 7 assessed: 04/29/23 Source: Developed by Drs. rAthur Warren, Valeria Foster, Marco Spain and colleagues, with an educational brittany from [employer] Review of Systems Const Denies chills, Denies fatigue, Denies fever(s), Denies headache(s) and Denies weakness ENT Denies dizziness and Denies headache(s) Card Denies chest pain, Denies lightheadedness, Denies dyspnea and Denies other (Palpitations) Resp Denies cough, Denies dyspnea, Denies wheezing and Denies other ( shortness of breath) Musc Denies numbness and Denies tingling Neuro Denies dizziness, Denies headache(s), Denies numbness, Denies tingling, Denies paresthesias and Denies weakness Psych Denies anxiety and Denies depression Endo Denies fatigue Aller/Immun Denies wheezing Physical exam (Primary Care) Vital Signs: Last Vital Signs Temp 98.6 F 08/14/24 12:02 Pulse 86 08/14/24 12:02 Resp 14 08/14/24 12:02 BP 120/62 08/14/24 12:02 Pulse Ox 98 08/14/24 12:02 Oxygen Delivery Method Room Air 08/14/24 12:02 BMI result Body Mass Index 18.0 Tobacco/Smoking Status: Tobacco use Status Tobacco use date assessed 08/14/24 08/14/24 12:05 Patient Tobacco Use Status Never used Tobacco 08/14/24 12:02 e-Cigarette/Vaping Use Never Used 08/14/24 12:02 Thrive Assessment: Date of Thrive Assessment Date Thrive assessed 03/21/24 08/14/24 12:00 Currently or been in a relationship where the following occur: I choose not to answer Const General: no acute distress and well developed Nutritional Appearance: well nourished Orientation/consciousness: patient oriented x3 HENMT Head: Yes normocephalic and Yes atraumatic Eyes General: appearance normal, both eyes and all related structures Pupils: Equal, round and reactive pupils present EOM: EOMs intact bilaterally Resp Effort & Inspection: normal respiratory effort Auscultation: clear to auscultation bilaterally Cardio Rate: regular rate Rhythm: regular rhythm Heart sounds: S1 normal heart sound present, S2 normal heart sound present, no gallops, no murmurs and no rubs Neuro General: patient oriented x3 and gait normal Cranial nerves: Yes Equal, round and reactive pupils present Psych Affect: normal affect Coding Level of Care Code Est Pt Level 4 (89902) Diagnoses Essential hypertension I10 Mild anemia D64.9 Dementia F03.90 Hypothyroidism E03.9 Assessment & Plan Assessment & Plan (1) Essential hypertension: Code(s): I10 - Essential (primary) hypertension Category: Medical Plan: Blood pressure is controlled. Goal is less than 140/90 Continue current medication (2) Mild anemia: Code(s): D64.9 - Anemia, unspecified Category: Medical Plan: Mild anemia which has declined slightly Will recheck this along with iron studies (3) Dementia: Code(s): F03.90 - Unspecified dementia, unspecified severity, without behavioral disturbance, psychotic disturbance, mood disturbance, and anxiety Category: Medical Plan: She is taking donepezil at increased dose and has started Cerefolin. Daughter says she does notice some improvements Continue current medications We also discussed certified personal trainer and daughter is looking into this. (4) Hypothyroidism: Code(s): E03.9 - Hypothyroidism, unspecified Category: Medical Plan: TSH is mildly suppressed Recheck thyroid hormone levels Orders: Orders Vitamin B12 and Folate Today D64.9 - Anemia, unspecified, E53.8 - Deficiency of other specified B group vitamins Triiodothyronine T3 Total Today E03.9 - Hypothyroidism, unspecified Thyroid Stimulating Hormone Today E03.9 - Hypothyroidism, unspecified IRON PROFILE Today D64.9 - Anemia, unspecified Reticulocyte Count Today D64.9 - Anemia, unspecified Ferritin Today D64.9 - Anemia, unspecified Complete Blood Count Auto Diff Today D64.9 - Anemia, unspecified, Z00.00 - Encounter for general adult medical examination without abnormal findings Free T4 (Free Thyroxine) Today E03.9 - Hypothyroidism, unspecified Comprehensive Met. Panel Today I10 - Essential (primary) hypertension
[2024-08-14 12:02] VITALS: BP 120/62; PULSE 86; RESP 14; TEMP 37; O2SAT 98; BMI 18.0
== END 2024-08-14 12:53 | disposition home or self-care (01) ==
LOC: HO.HMCFM 10:59
PROVIDERS: PCP Family Medicine; Visit Provider Family Medicine
DX: I10 Essential (primary) hypertension (principal); D64.9 Anemia, unspecified; F03.90 Unspecified dementia, unspecified severity, without behavioral disturbance, psychotic disturbance, mood disturbance, and anxiety; E03.9 Hypothyroidism, unspecified

== ENCOUNTER → 2024-08-14 10:58 | Outpatient (BNVA) | payer MEDICARE, OTHER, SELFPAY | PROVIDERS: PCP Family Medicine; Visit Provider Family Medicine | DX: I10 Essential (primary) hypertension (principal); D64.9 Anemia, unspecified; E03.9 Hypothyroidism, unspecified; F03.90 Unspecified dementia, unspecified severity, without behavioral disturbance, psychotic disturbance, mood disturbance, and anxiety | CPT/HCPCS: 99212 ==

== ENCOUNTER 2024-09-06 10:50 | Emergency (ER) | payer MEDICARE, OTHER, SELFPAY ==
[2024-09-06] VITALS (10 sets, daily range): BP systolic 110–136; BP diastolic 50–84; PULSE 62–77; RESP 16–22; TEMP 36.2–36.7; O2SAT 96–99; BMI 17.6
--- NOTE | 2024-09-06 | ECG_ITS ---
Test Reason : weakness Blood Pressure : */* mmHG Vent. Rate : 62 BPM Atrial Rate : 62 BPM P-R Int : 150 ms QRS Dur : 136 ms QT Int : 466 ms P-R-T Axes : 65 113 29 degrees QTcB Int : 472 ms Sinus rhythm with marked sinus arrhythmia Right bundle branch block Left posterior fascicular block Bifascicular block Abnormal ECG When compared with ECG of 02-Jan-2018 13:49, Premature ventricular complexes are no longer Present Premature atrial complexes are no longer Present (RBBB and left posterior fascicular block) is now Present Criteria for Septal infarct are no longer Present Referred By: Generic ED Physician Electronically Signed By: REYNA ENGLE MD
--- NOTE | ~2024-09-06 | XR_ITS ---
EXAMINATION: XR CHEST 1 VIEW HISTORY: sob, dizziness COMPARISON: There are no prior studies available for comparison. FINDINGS: A single AP portable view of the chest performed at 12:02 PM is submitted. There is biapical pleural-parenchymal scarring. The lungs are otherwise clear. There is no pleural effusion, pneumothorax, or pulmonary vascular congestion. The heart is normal in size. There is degenerative disc disease of the spine. There is an old healed fracture of the right 8th rib. XR/XR chest 1V IMPRESSION: Clear lungs. Electronically signed by: Arthur Duran MD 09/06/2024 12:21 PM EDT
[2024-09-06 11:42] LABS: MANUAL DIFF FLAG NO
[2024-09-06 11:44] LABS: Hematocrit 27.2 % (37.0-47.0); Hemoglobin 9.2 g/dl (12.0-16.0); Imm Gran Abs Auto 0.02 X10*3/uL (0.00-0.03); Imm Gran Pct Auto 0.4 % (0.0-0.4); Lymphocytes Absolute Auto 1.1 X10*3/uL (1.2-4.9); Mean Corpuscular HGB Conc 33.8 g/dl (31.0-35.0); Mean Corpuscular Hemoglobin 31.7 pg (27.0-33.0); Mean Corpuscular Volume 93.8 fL (80.0-98.0); NRBC Abs Auto 0.000 X10*3/uL (0.0-0.012); NRBC Pct Auto 0.0 /100WBC (0.0-0.2); Platelet Count 270 X10*3/uL (160-400); Red Blood Count 2.90 X10*6/uL (4.20-5.50); White Blood Count 5.6 X10*3/uL (4.8-10.8)
--- NOTE | 2024-09-06 11:53 | ED_ITS ---
HPI - General Adult General Chief complaint: General Medical Stated complaint: WEAK LETHARGIC Time Seen by Provider: 09/06/24 11:52 Source: patient, EMS and RN notes reviewed Mode of arrival: EMS Limitations: no limitations History of Present Illness ED Provider: Wendy Jiménez PA-C HPI narrative: 89-year-old female with history of dementia, history of HLD, osteoporosis, hypothyroidism, HTN who presents to the ER from home for evaluation after a neighbor saw her sitting on her back porch appearing pale and unwell. Patient lives home alone. her family member went to pick her up today to get her hair done when she states she found her pale and short of breath. She reported feeling weak and woozy. She states she went to bed last night in her usual state of health. no known sick contacts. She denies any coughing, URI symptoms, fever, chills, chest pain, abdominal pain, nausea, vomiting, diarrhea. She states she has been eating and drinking normally. Since arrival to the ER she states her breathing has improved and she is no longer feeling woozy. She denies any dizziness or lightheadedness. Denies sensation of passing out. No falls. MD complaint: Shortness of breath, weakness Onset (ago): hour(s) Pain Consistency: now resolved Relieving factors: rest Associated symptoms: confusion, shortness of breath and weakness Treatments prior to arrival: none Related Data Previous Rx's ?Medication ?Instructions ?Recorded fluticasone propionate 50 1 spray intranasal BID 90 da ys #48 02/28/23 mcg/actuation nasal grams spray,suspension lisinopril 20 mg tablet 20 mg PO DAILY 90 days #90 t abs 07/20/23 atorvastatin 40 mg tablet 40 mg PO BEDTIME 90 days #90 tabs 12/14/23 levothyroxine 112 mcg tablet 112 mcg PO DAILY 90 days #90 tabs 01/31/24 ueugkypleqfgmg-qfhbtdhermi-tfrkoomlzjya 1 tab PO DAILY 90 days #90 tabs 04/18/24 calc. 600 mg-2 mg-6 mg tablet ([employer] [facility]) amlodipine 5 mg tablet 5 mg PO DAILY #90 tabs 06/21 donepezil 10 mg tablet 10 mg PO DAILY 30 days #30 t abs 07/06/24 alendronate 70 mg tablet 70 mg PO QWEEK #4 tabs 08/16 Allergies Allergy/AdvReac Type Severity Reaction Status Date / Time Seasonal Allergies Allergy stuffy Verified 09/06/24 11:16 noise Review of Systems 2 Review of Systems: Yes all other systems are reviewed and are negative [facility] Past Medical History Medical History Hypercholesterolemia Osteoporosis Hypothyroidism Essential hypertension Surgical History Breast cyst History of tonsillectomy History of total hysterectomy with bilateral salpingo-oophorectomy (BSO) Family History Family History Father Myocardial infarction CHF (congestive heart failure) HTN (hypertension) CVD (cardiovascular disease) Mother CVD (cardiovascular disease) Sister Breast cancer Sister Breast cancer Social History Social History (Updated 08/14/24 @ 12:02 by Kimberly Lei MA) Housing: House Unable to assess alcohol history related to: Unknown Alcohol intake: unknown Patient Tobacco Use Status: Never used Tobacco Smoked in Last 30 Days: No e-Cigarette/Vaping Use: Never Used Second Hand Smoke Exposure: No Use of substances other than those prescribed or required for medical reasons: No Advance Directives: No Advance Directives Information Provided: Yes Do you have a plan to hurt others: No Plan service: No Current occupational status: retired Current occupational exposures/hazards: No Cognitive needs: No Hearing needs: No Vision needs: No Physical Exam ED Exam Exam: Appearance: Alert, elderly female sitting up in bed. Oriented X2. No acute distress. Head: normocephalic, atraumatic. Eyes: Pupils equal, round and reactive to light. ENT: Pharynx normal. No tonsillar swelling or exudate. Neck: Normal inspection. Neck supple. CVS: Normal heart rate and rhythm. Pulses normal. Respiratory: No respiratory distress. Breath sounds with a slight crackle at the left base, otherwise clear throughout Abdomen: Soft and nontender. +BS x4 Skin: Skin warm and dry. Normal skin color. Normal skin turgor. No rashes. Extremities: No lower extremity edema. No joint swelling. Neuro/psych: Oriented X 2. No motor deficit. No sensory deficit. CN II-XII intact. Normal speech and cognition. Vital Signs: Vital Signs - 24 hr 09/06/24 11:13 09/06/24 13:18 09/06/24 13:41 Temperature 97.7 F Pulse Rate 65 68 72 Respiratory Rate 22 H Blood Pressure 123/53 L 130/56 L 127/52 L Pulse Oximetry 99 Oxygen Delivery Method Room Air Oxygen Flow Rate 09/06/24 13:42 09/06/24 14:44 09/06/24 16:00 Temperature 97.7 F Pulse Rate 77 76 72 Respiratory Rate 18 16 Blood Pressure 131/57 L 130/53 L 136/56 L Pulse Oximetry 97 96 Oxygen Delivery Method Room Air Room Air Oxygen Flow Rate 97 09/06/24 18:47 09/06/24 20:18 09/06/24 21:27 Temperature 98.1 F 98.1 F 97.2 F Pulse Rate 62 64 68 Respiratory Rate 16 16 16 Blood Pressure 129/52 L 134/84 116/50 L Pulse Oximetry 97 97 98 Oxygen Delivery Method Room Air Room Air Room Air Oxygen Flow Rate 09/06/24 23:21 09/07/24 06:12 09/07/24 10:15 Temperature 97.3 F 98.5 F Pulse Rate 68 61 Respiratory Rate 16 18 Blood Pressure 116/50 L 135/51 L 121/60 Pulse Oximetry 98 96 Oxygen Delivery Method Room Air Room Air Oxygen Flow Rate 09/07/24 10:15 09/07/24 10:17 Temperature 97.6 F Pulse Rate 76 Respiratory Rate 18 Blood Pressure 121/60 121/60 Pulse Oximetry 100 Oxygen Delivery Method Room Air Oxygen Flow Rate BMI result Body Mass Index 17.6 Course Reevaluation(s) Reevaluation #1: Physician observation started at 1506. Patient placed in physician observation because patient is awaiting PT team evaluation for the possible need of short term rehab At the time observation was started patient's vital signs were stable. Patient is alert and oriented. Neuro exam is non-focal. CV: RRR and lungs are clear. Will continue to monitor. Time: 15:06 Time: 08:26 Reevaluation #3: Omari Love PA-C: Physician observation continued, no overnight events reported by nursing. VSS. Patient declined short-term rehab placement, prefers home PT. Case management following for discharge plan. Time: 09:04 Additional Reevaluation(s): Patient to discharge home with VNA services. Observation care revealed that patient does not meet medical necessity for hospitalization. Final disposition discussed with patient. The patient completed observation care at 10:27 am on 09/07/24. Medications Administered Generic Name Dose Route Start Last Admin Trade Name Frejonathon PRN Reason Stop Dose Admin Amlodipine Besylate 5 mg 09/07/24 09:00 09/07/24 10:15 Amlodipine Besylate 5 Mg Tablet PO 5 mg DAILY SCAR Administration Protocol Lisinopril 20 mg 09/07/24 09:00 09/07/24 10:15 Lisinopril 20 Mg Tablet PO 20 mg DAILY SCAR Administration Protocol Discontinued Medications Generic Name Dose Route Start Last Admin Trade Name Freq PRN Reason Stop Dose Admin Sodium Chloride 250 mls @ 999 mls/hr 09/06/24 12:30 09/06/24 13:45 Ns IV 09/06/24 12:45 Infused .Q16M SCAR Infusion Medical Decision Making Medical Decision Making MDM Narrative: 89-year-old female with history of dementia, hypothyroidism who presents to the ER for evaluation of shortness of Breath and feeling woozy This morning when family went to pick her up for a hair appointment. Her symptoms have improved since arrival to the ER. She denies any associated chest pain. She states her breathing feels better but she is having slightly increased work of breathing compared to her baseline. She is a never smoker. No history of COPD or asthma. She denies any URI symptoms. Her vital signs are stable. Labs show some slightly worsening anemia with hemoglobin of 9.2, creatinine of 27.2. This is from a baseline of 10 and 30 about a month ago. She is not on anticoagulation. Denies signs or symptoms of GI bleeding. EKG shows bifascicular block, last EKG in the system here was from 2018. Her troponin is negative, repeat was also negative. Urinalysis is negative for infection. Chest x-ray is clear. No major metabolic derangement on her lab work. Patient reports feeling better. She lives home alone. Given her generalized weakness and reported feeling slightly woozy today, will have her ambulate with physical therapy to see how she looks and feels on her feet. Will involve case management in the event she may need acute rehab, Services at home. Goals of care d/w patient and family at the bedside - she would like to be DNR/DNI, MOLST filled out with patinet and family. Differential Diagnosis Differential Diagnoses: The differential diagnosis associated with the presentation includes ACS, PE, PNA, anemia, hypotension, UTI, dehydration, dementia Admission/Observation Consideration of admission/observation: Escalation of care including admission/observation considered Lab Data MDM Lab Attestation statement: I reviewed the patient's lab results. anemia is slightly worse than her baseline, hemoglobin is 9 0.2 from 10.2 a month ago 09/06/24 11:38 09/06/24 11:38 Labs: Lab Results 09/06/24 09/06/24 09/06/24 Range/Units 11:38 11:56 13:34 WBC 5.6 (4.8-10.8) X10*3/uL RBC 2.90 L (4.20-5.50) X10*6/uL Hgb 9.2 L (12.0-16.0) g/dl Hct 27.2 L (37.0-47.0) % MCV 93.8 (80.0-98.0) fL MCH 31.7 (27.0-33.0) pg MCHC 33.8 (31.0-35.0) g/dl RDW 14.0 (11.0-16.0) % Plt Count 270 (160-400) X10*3/uL MPV 9.9 (9.4-12.3) fL Immature Gran % (Auto) 0.4 (0.0-0.4) % Neut % (Auto) 70.8 (45-73) % Lymph % (Auto) 19.0 L (20-40) % Upson % (Auto) 7.1 (2-11) % Eos % (Auto) 2.0 (0-4) % Baso % (Auto) 0.7 (0-2) % Lymph # (Auto) 1.1 L (1.2-4.9) X10*3/uL Upson # (Auto) 0.4 (0.1-1.2) X10*3/uL Eos # (Auto) 0.1 (0.0-0.4) X10*3/uL Baso # (Auto) 0.0 (0.0-0.2) X10*3/uL Abs Immat Gran (auto) 0.02 (0.00-0.03) X10*3/uL Absolute Neuts (auto) 4.0 (2.0-8.3) x10*3/uL Absolute Nucleated RBC 0.000 (0.0-0.012) X10*3/uL Nucleated RBC % (auto) 0.0 (0.0-0.2) /100WBC Sodium 140 (135-145) mmol/L Potassium 4.3 (3.3-5.1) mmol/L Chloride 107 (96-108) mmol/L Carbon Dioxide 22 (22-29) mmol/L Anion Gap 15 (12-20) BUN 26 H (9-16) mg/dL Creatinine 1.03 (0.5-1.4) mg/dL Estim Creat Clear Calc 26.5 Estimated GFR 51 Random Glucose 119 H (60-115) mg/dL Calcium 9.5 (8.4-10.2) mg/dL Magnesium 2.0 (1.6-2.6) mg/dL Total Bilirubin 0.4 (0.0-1.0) mg/dL AST 31 (5-31) U/L ALT 9 (0-31) U/L Alkaline Phosphatase 53 (39-117) U/L Troponin I High Sens 6.0 4.9 (<3.5-17.0) ng/L B-Natriuretic Peptide 203 H (<100) pg/mL Total Protein 6.8 (6.5-8.0) g/dL Albumin 3.8 (3.5-5.0) g/dL Urine Color Urine Appearance Urine pH (5.0-9.0) Ur Specific Connell (1.005-1.025) Urine Protein (Neg-Trace) mg/dL Urine Glucose (UA) (Negative) mg/dL Urine Ketones (Negative) mg/dL Urine Blood (Negative) Urine Nitrite (Negative) Ur Leukocyte Esterase (Negative) Urine RBC (0-2) /HPF Urine WBC (0-5) /HPF Ur Squamous Epith Cells (0-2) /HPF Urine Bacteria (None Seen) Hyaline Casts (0-2) /LPF Influenza Type A (PCR) NEGATIVE (Negative) Influenza Type B (PCR) NEGATIVE (Negative) RSV RNA Qual (PCR) NEGATIVE (Negative) SARS-CoV-2 RNA (RT-PCR) NEGATIVE (Negative) 09/06/24 Range/Units 14:41 WBC (4.8-10.8) X10*3/uL RBC (4.20-5.50) X10*6/uL Hgb (12.0-16.0) g/dl Hct (37.0-47.0) % MCV (80.0-98.0) fL MCH (27.0-33.0) pg MCHC (31.0-35.0) g/dl RDW (11.0-16.0) % Plt Count (160-400) X10*3/uL MPV (9.4-12.3) fL Immature Gran % (Auto) (0.0-0.4) % Neut % (Auto) (45-73) % Lymph % (Auto) (20-40) % Upson % (Auto) (2-11) % Eos % (Auto) (0-4) % Baso % (Auto) (0-2) % Lymph # (Auto) (1.2-4.9) X10*3/uL Upson # (Auto) (0.1-1.2) X10*3/uL Eos # (Auto) (0.0-0.4) X10*3/uL Baso # (Auto) (0.0-0.2) X10*3/uL Abs Immat Gran (auto) (0.00-0.03) X10*3/uL Absolute Neuts (auto) (2.0-8.3) x10*3/uL Absolute Nucleated RBC (0.0-0.012) X10*3/uL Nucleated RBC % (auto) (0.0-0.2) /100WBC Sodium (135-145) mmol/L Potassium (3.3-5.1) mmol/L Chloride (96-108) mmol/L Carbon Dioxide (22-29) mmol/L Anion Gap (12-20) BUN (9-16) mg/dL Creatinine (0.5-1.4) mg/dL Estim Creat Clear Calc Estimated GFR Random Glucose (60-115) mg/dL Calcium (8.4-10.2) mg/dL Magnesium (1.6-2.6) mg/dL Total Bilirubin (0.0-1.0) mg/dL AST (5-31) U/L ALT (0-31) U/L Alkaline Phosphatase (39-117) U/L Troponin I High Sens (<3.5-17.0) ng/L B-Natriuretic Peptide (<100) pg/mL Total Protein (6.5-8.0) g/dL Albumin (3.5-5.0) g/dL Urine Color Dark Yellow Urine Appearance Clear Urine pH 7.0 (5.0-9.0) Ur Specific Connell 1.020 (1.005-1.025) Urine Protein 100 (2+) H (Neg-Trace) mg/dL Urine Glucose (UA) Negative (Negative) mg/dL Urine Ketones 40 (Negative) mg/dL Urine Blood Negative (Negative) Urine Nitrite Negative (Negative) Ur Leukocyte Esterase Negative (Negative) Urine RBC 0-2 (0-2) /HPF Urine WBC 0-5 (0-5) /HPF Ur Squamous Epith Cells 0-2 (0-2) /HPF Urine Bacteria None Seen (None Seen) Hyaline Casts 3-5 (0-2) /LPF Influenza Type A (PCR) (Negative) Influenza Type B (PCR) (Negative) RSV RNA Qual (PCR) (Negative) SARS-CoV-2 RNA (RT-PCR) (Negative) Independent Interpretation I performed an independent interpretation of an: EKG and Plain X-Ray Interpretation: EKG with sinus rhythm with sinus arrhythmia, bifascicular block, ventricular rate 62 beats per minute, no ST segment elevations. T-wave inversions in V1 and V2 chest x-ray is clear with no focal infiltrate, no effusion, no pneumothorax Radiology Impression Discussion of test interpretation with radiology: I have reviewed the radiologist's reading. Independent Historian Clinical information obtained from an independent historian. History obtained from or confirmed by: EMS and Other External Record Review External record reviewed: Outpatient record, Prior outpatient labs and Prior outpatient radiology Tests considered The following testing was considered but not selected: CTA considered - SOB improved and resolved Prescription Management I considered prescription management with: Pain Medication and Antibiotic Chronic Conditions Patient?s care impacted by: Other ( dementia) Social Determinants Patient?s care significantly limited by Social Determinants of Health including: Problems related to primary support group Critical Care Time Critical Care Time Critical Care Time: No Discharge Plan Discharge Clinical Impression: Weakness Dementia Qualifiers: Dementia type: unspecified type Dementia severity: unspecified severity D ementia behavioral or psychological symptom: unspecified whether behavioral, psychotic, or mood disturbance or anxiety Qualified Code(s): F03.90 - Unspecified dementia, unspecified severity, without behavioral disturbance, psychotic disturbance, mood disturbance, and anxiety Patient Disposition: Home, Self-Care Additional Instructions: You are being discharged home with visiting nurse services. Follow up with your primary care provider. Please return to the emergency department if you experience any new/worsening/concerning symptoms Prescriptions: No Action fluticasone propionate 50 mcg/actuation spray,suspension 1 spray intranasal BID 90 Days Qty: 48 3RF lisinopril 20 mg tablet 20 mg PO DAILY 90 Days Qty: 90 4RF atorvastatin 40 mg tablet 40 mg PO BEDTIME 90 Days Qty: 90 2RF levothyroxine 112 mcg tablet 112 mcg PO DAILY 90 Days Qty: 90 3RF amlodipine 5 mg tablet 5 mg PO DAILY Qty: 90 0RF donepezil 10 mg tablet 10 mg PO DAILY 30 Days Qty: 30 2RF alendronate 70 mg tablet 70 mg PO QWEEK Qty: 4 3RF [employer] [facility] 600-2-6 mg tablet 1 tab PO DAILY 90 Days Qty: 90 2RF Print Language: Japanese
[2024-09-06 12:01] LABS: Alanine Aminotransferase 9 U/L (0-31); Albumin Level 3.8 g/dL (3.5-5.0); Alkaline Phosphatase 53 U/L (39-117); Anion Gap 15 (12-20); Aspartate Amino Transferase 31 U/L (5-31); Blood Urea Nitrogen 26 mg/dL (9-16); Calcium 9.5 mg/dL (8.4-10.2); Carbon Dioxide 22 mmol/L (22-29); Chloride 107 mmol/L (96-108); Creatinine Clr Calc Pharmacy 26.5; Estimated Glomerular Filt Rate 51; Magnesium 2.0 mg/dL (1.6-2.6); Potassium 4.3 mmol/L (3.3-5.1); Sodium 140 mmol/L (135-145); Total Protein 6.8 g/dL (6.5-8.0)
[2024-09-06 12:07] LABS: Troponin-I High Sensitivity 6.0 ng/L (<3.5-17.0)
[2024-09-06 12:10] LABS: B Type Natriuretic Peptide 203 pg/mL (<100)
[2024-09-06 12:39] LABS: Resp Syncy Virus RNA Qual PCR NEGATIVE (Negative); SARS COV2 PCR INHOUSE NEGATIVE (Negative)
[2024-09-06 14:04] LABS: Troponin-I High Sensitivity 4.9 ng/L (<3.5-17.0)
[2024-09-06 14:50] LABS: Appearance Urine Clear; Glucose Urine UA Negative (Negative); PH 7.0 (5.0-9.0); Specific Gravity - Urine 1.020 (1.005-1.025); UMIC TRIGGER UACC YES
--- NOTE | 2024-09-06 15:40 | PC.NURSE ---
Pt resting quietly in room; ortho vs stable; pt tolerating PO intake; awaiting PT eval for safety
--- NOTE | 2024-09-06 17:53 | PC.NURSE ---
Pt ambulated in hallway with walker, steady gait; pt seemed slightly SOB with ambulating; SAO2 98% upon return to room; pt provided with hospital bed for comfort; pt to have PT eval tomorrow
--- NOTE | 2024-09-06 18:11 | MHC.CM.ED ---
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 Original Note: CM met with patient and family to discuss discharge planning. Pt is A&Ox3. Lives alone. Is independent. Uses no DME. Has MOW. Family has appointment 09/18 with [facility] for increased home services. Family helps patient when needed and with transportation. HCP/peter Sears ([phone]). HCP is at home. Contact for tomorrow is peter Sears ([phone]). Address, PCP and insurances verified. Pt is not interested in STR. Would be agreeable to outpatient PT or home PT. PT is pending. No referrals placed at this time. Is agreeable to NA if needed. CM will follow for discharge planning.
--- NOTE | 2024-09-06 18:36 | MHC.EDTECH ---
Patient given dinner tray
[2024-09-07 06:12] VITALS: BP 135/51; PULSE 61; RESP 18; TEMP 36.9; O2SAT 96
--- NOTE | 2024-09-07 06:56 | PC.NURSE ---
0600. Pt pleasantly confused, requiring frequent reorientation to place, time and situation. Pt impulsively gets OOB to ambulate. Gait and balance are steady with ambulation. Pt denies SOB, VSS. PT consult pending.
--- NOTE | 2024-09-07 08:24 | PC.NURSE ---
Assumed care of pt at 0700. Pt resting in bed quietly, a/ox3- confused at times. Respirations even and unlabored, no increased wob/sob noted, appears in no distress, denies pain. Pt given breakfast tray- ate 100% of breakfast independently. Pt attempting to get oob, stating I am going home right now, let me go home. Pt unable to be redirected back to bed. 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 recovery assistant Bryson made aware of pt situation/inability to be redirected and frequent attempts to get out of bed. Pt ambulates unassisted with steady gait. Derek- Physical Therapy at bedside with patient for assessment.
[2024-09-07 10:15] VITALS: BP 121/60
[2024-09-07 10:17] VITALS: BP 121/60; PULSE 76; RESP 18; TEMP 36.4; O2SAT 100
--- NOTE | 2024-09-07 11:02 | MHC.CM.PN ---
Addendum entered by Kirsty Monet 09/07/24 11:06: PER DISCUSSION, [facility] WAS ASKED TO CONTACT [facility] TO ARRANGE SOC Original Note: PT SEEN BY PHYSICAL THERAPY THIS MORNING AND HOME SERVICES WERE RECOMMENDED CM SPOKE TO [facility] WHO REPORTS THEY KNOW SHE IS STRONG AND ARE NOT WORRIED ABOUT HER BEING ABLE TO NAVIGATE HER HOME, SHE HAS LIVED THERE SINCE SHE SAYS THEY ARE MORE WORRIED ABOUT HER BEING ALONE SO WOULD BE HAPPY TO HAVE VNA SO SOMEONE IS CHECKING IN THEY ALSO HAVE AN APPT SCHEDULED WITH [facility] TO ASSESS FOR CONTINUED HOME SERVICES PT WILL DC TODAY WITH [facility] FOR SN AND PT [facility] WILL TRANSPORT
[2024-09-07 11:34] VITALS: BP 121/60; PULSE 76; RESP 18; TEMP 36.4; O2SAT 100
[2024-09-07 11:52] VITALS: BP 121/60; PULSE 76; O2SAT 100
== END 2024-09-07 11:35 | disposition home or self-care (01) ==
PROVIDERS: Physician Assistant; Emergency Provider Emergency Medicine Emergency Medical Services; PCP Family Medicine
DX: R41.0 Disorientation, unspecified (principal); F03.90 Unspecified dementia, unspecified severity, without behavioral disturbance, psychotic disturbance, mood disturbance, and anxiety; R06.02 Shortness of breath; R26.2 Difficulty in walking, not elsewhere classified; R11.0 Nausea; R53.1 Weakness; Z03.818 Encounter for observation for suspected exposure to other biological agents ruled out; Z79.899 Other long term (current) drug therapy
CPT/HCPCS: 36415; 71045; 80053; 81001; 83735; 83880; 84484; 85025; 87637; 93005; 96360; 97162; 99285

== ENCOUNTER → 2024-09-06 11:24 | Outpatient (BNV) | payer MEDICARE, OTHER, SELFPAY | PROVIDERS: Emergency Provider Emergency Medicine Emergency Medical Services; PCP Family Medicine; Visit Provider Internal Medicine Cardiovascular Disease | DX: I45.2 Bifascicular block (principal); I45.10 Unspecified right bundle-branch block | CPT/HCPCS: 93010 ==

== ENCOUNTER → 2024-09-06 11:53 | Outpatient (BNV) | payer MEDICARE, OTHER, SELFPAY | PROVIDERS: Emergency Provider Emergency Medicine Emergency Medical Services; PCP Family Medicine; Visit Provider Radiology Diagnostic Radiology | DX: R06.02 Shortness of breath (principal) | CPT/HCPCS: 71045 ==

== ENCOUNTER 2024-10-05 10:59 | Outpatient (REF) | payer MEDICARE, OTHER, SELFPAY ==
[2024-10-05 14:30] LABS: MANUAL DIFF FLAG NO
[2024-10-05 14:50] LABS: Hematocrit 32.2 % (37.0-47.0); Hemoglobin 10.6 g/dl (12.0-16.0); Imm Gran Abs Auto 0.03 X10*3/uL (0.00-0.03); Imm Gran Pct Auto 0.4 % (0.0-0.4); Lymphocytes Absolute Auto 1.3 X10*3/uL (1.2-4.9); Mean Corpuscular HGB Conc 32.9 g/dl (31.0-35.0); Mean Corpuscular Hemoglobin 31.6 pg (27.0-33.0); Mean Corpuscular Volume 96.1 fL (80.0-98.0); NRBC Abs Auto 0.000 X10*3/uL (0.0-0.012); NRBC Pct Auto 0.0 /100WBC (0.0-0.2); Platelet Count 297 X10*3/uL (160-400); Red Blood Count 3.35 X10*6/uL (4.20-5.50); Reticulocytes Absolute 0.039 X10*6/uL (0.026-0.095); White Blood Count 7.5 X10*3/uL (4.8-10.8)
[2024-10-05 15:17] LABS: Alanine Aminotransferase 19 U/L (0-31); Albumin Level 4.6 g/dL (3.5-5.0); Alkaline Phosphatase 55 U/L (39-117); Anion Gap 15 (12-20); Aspartate Amino Transferase 34 U/L (5-31); Blood Urea Nitrogen 35 mg/dL (9-16); Calcium 10.0 mg/dL (8.4-10.2); Carbon Dioxide 25 mmol/L (22-29); Chloride 104 mmol/L (96-108); Estimated Glomerular Filt Rate 50; Iron 151 mcg/dL (30-160); Percent Iron Saturation 45 % (15-50); Potassium 4.3 mmol/L (3.3-5.1); Sodium 140 mmol/L (135-145); Total Iron Binding Capacity 334 mcg/dL (228-428); Total Protein 7.8 g/dL (6.5-8.0); Unsaturated Iron Binding 183 ug/dL
[2024-10-05 15:18] LABS: Ferritin 46 ng/mL (10-250); Free T4 (Free Thyroxine) 1.50 ng/dL (0.71-1.85); Thyroid Stimulating Hormone 0.12 uIU/mL (0.32-4.0)
[2024-10-05 16:00] LABS: Appearance Urine Clear; Glucose Urine UA Negative (Negative); PH 6.0 (5.0-9.0); Specific Gravity - Urine 1.015 (1.005-1.025)
[2024-10-05 16:51] LABS: Folate 19.7 ng/mL (> or = 4.0); Vitamin B12 > 2000 pg/mL (200-900)
== END 2024-10-05 11:00 | disposition home or self-care (01) ==
LOC: HO.WFDLDS 10:59
PROVIDERS: PCP Family Medicine; Visit Provider Family Medicine
DX: Z00.00 Encounter for general adult medical examination without abnormal findings (principal); R41.82 Altered mental status, unspecified; D64.9 Anemia, unspecified; I10 Essential (primary) hypertension; E03.9 Hypothyroidism, unspecified; F03.90 Unspecified dementia, unspecified severity, without behavioral disturbance, psychotic disturbance, mood disturbance, and anxiety; E53.8 Deficiency of other specified B group vitamins; Z79.890 Hormone replacement therapy; Z79.899 Other long term (current) drug therapy
CPT/HCPCS: 36415; 80053; 81003; 82607; 82728; 82746; 83540; 84439; 84443; 84480; 85025; 85045; 99212

== ENCOUNTER 2024-10-05 10:59 | Outpatient (AMB) | payer MEDICARE, OTHER, SELFPAY ==
--- NOTE | 2024-10-05 11:08 | A.OFFPC_ITS ---
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 Is last menstrual period known: No Post menopausal: No Patient : No Allergies Seasonal Allergies Allergy (Verified 10/05/24 11:11) stuffy noise Medication List - Last Reconciled 10/05/24 by Watson Erazo MD [id number]-mefolate 600-2-6 mg (Cerefolin Brain PassionTag) 1 tab PO DA GIANNI 90 days alendronate 70 mg PO QWEEK amlodipine 5 mg PO DAILY atorvastatin 40 mg PO BEDTIME 90 days donepezil 10 mg PO DAILY 30 days fluticasone propionate 50 mcg/actuation 1 spray intranasal BID 90 days levothyroxine 112 mcg PO DAILY 90 days lisinopril 20 mg PO DAILY 90 days Tobacco use date assessed: 10/05/24 Fall risk assessment: No Falls in past year Last assessed Fall Risk: 10/05/24 Dental Screening Dental Screen Date: 10/05/24 Did you have a dental visit in the last 12 months?: No Did you have a dental problem in the last 6 months where you did not have access to dental care?: No Was dental information given to patient?: Patient has dentist HPI hmc discharge/dehydration HPI Details 89 y/o female presents to /[facility] d ischarge visit. Had presented to ER for evaluation of shortness of breath and feeling woozy/mental status and generalized weakness. EKG, chest x-ray, labs were okay,. Did notice mild anemia. [facility] Medical History Hypercholesterolemia Osteoporosis Hypothyroidism Essential hypertension Surgical History Breast cyst History of tonsillectomy History of total hysterectomy with bilateral salpingo-oophorectomy (BSO) Family History Father Myocardial infarction CHF (congestive heart failure) HTN (hypertension) CVD (cardiovascular disease) Mother CVD (cardiovascular disease) Sister Breast cancer Sister Breast cancer Social History (Updated 08/14/24 @ 12:02 by Kimberly Lei MA) Housing: House Unable to assess alcohol history related to: Unknown Alcohol intake: unknown Patient Tobacco Use Status: Never used Tobacco e-Cigarette/Vaping Use: Never Used Second Hand Smoke Exposure: No Patient : No service: No Current occupational status: retired Current occupational exposures/hazards: No Cognitive needs: No Hearing needs: No Vision needs: No Questionnaire Thrive Questionnaire Date Thrive assessed: 03/21/24 I am a: Patient What is your living situation today?: I have a steady place to live Within the past 12 months, did the food you bought not last and you didn't have the money to get more?: Never true Within the past 12 months, did you worry whether your food would run out before you got money to buy more?: Never true Do you have trouble paying for medicines?: No Do you have trouble getting transportation to medical appointments?: No Do you have trouble paying your heating and electricity bill?: No Do you have trouble taking care of your child, family member or friend?: No Do you have trouble with day-to-day activities such as bathing, preparing meals, shopping, managing finances, etc.?: No Are you currently unemployed and looking for a job?: No Are you interested in more education?: No Please select the resources that you would like help with: None Currently or been in a relationship where the following occur: I choose not to answer THRIVE Score: 0 LANNY-7 AMB Questionnaire LANNY-7 Date LANNY - 7 assessed: 04/29/23 Source: Developed by Drs. Arthur Warren, Valeria Foster, Marco Spain and colleagues, with an educational brittany from [employer]. Review of Systems Const Denies chills, Denies fatigue, Denies fever(s), Denies headache(s) and Denies weakness ENT Denies dizziness and Denies headache(s) Card Denies dyspnea Resp Denies cough, Denies dyspnea, Denies wheezing and Denies other (shortness of breath) Musc Denies numbness and Denies tingling Neuro Denies dizziness, Denies headache(s), Denies numbness, Denies tingling and Denies weakness Psych Denies anxiety and Denies depression Endo Denies fatigue Aller/Immun Denies wheezing Physical exam (Primary Care) Vital Signs: Last Vital Signs Temp 97.8 F 10/05/24 11:13 Pulse 82 10/05/24 11:13 Resp 18 10/05/24 11:13 BP 137/60 10/05/24 11:13 Pulse Ox 100 10/05/24 11:13 Oxygen Delivery Method Room Air 10/05/24 11:13 BMI result Body Mass Index 17.8 Tobacco/Smoking Status: Tobacco use Status Tobacco use date assessed 10/05/24 10/05/24 11:17 Patient Tobacco Use Status Never used Tobacco 10/05/24 11:10 e-Cigarette/Vaping Use Never Used 10/05/24 11:10 Thrive Assessment: Date of Thrive Assessment Date Thrive assessed 03/21/24 10/05/24 11:10 Currently or been in a relationship where the following occur: I choose not to answer Const General: well developed; No acute distress Nutritional Appearance: well nourished Orientation/consciousness: patient oriented x3 HENMT Head: Yes normocephalic and Yes atraumatic Eyes General: appearance normal, both eyes and all related structures Pupils: Equal, round and reactive pupils present EOM: EOMs intact bilaterally Resp Effort & Inspection: normal respiratory effort Neuro General: patient oriented x3 and gait normal Cranial nerves: Yes Equal, round and reactive pupils present Psych Affect: normal affect Coding Level of Care Code Est Pt Level 3 (50050) Diagnoses Altered mental status R41.82 Anemia D64.9 Assessment & Plan Assessment & Plan (1) Altered mental status: Code(s): R41.82 - Altered mental status, unspecified Category: Medical Plan: Recent emergency department visit for altered mental status in patient with history of dementia and cognitive decline. Ruled out ACS and infections. She does have moderate anemia. Likely some dehydration as well. Her daughter notes that she sometimes forgets to eat. 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 (2) Anemia: Code(s): D64.9 - Anemia, unspecified Category: Medical Plan Labs already ordered for evaluation of anemia She will get these drawn today She has an appointment scheduled and we can review - will call if action is required sooner Orders: Referrals [facility] Referral F03.90 - Unspecified dementia, unspecified severity, without behavioral disturbance, psychotic disturbance, mood disturbance, and anxiety, R41.82 - Altered mental status, unspecified
[2024-10-05 11:13] VITALS: BP 137/60; PULSE 82; RESP 18; TEMP 36.6; O2SAT 100; BMI 17.8
--- OUTSIDE RECORDS SUMMARY | 2024-11-09 20:00 | XMS_ITS | Clinical Summary ---
Author Organization Unknown Care Team Providers Care Skin Care Specialist Name Role Phone AL ANAND, SANDY Unavailable Unavailable CARLOS ENRIQUE GENTILE, FILM PAINTER, GAVIN Love ble Unavailable Payers Payer Name Policy Type Policy Number Effective Date Expira tion Date MEDICARE - [facility] [facility] [id number] Problems Condition Name Condition Details Condition Category Status Onset Date Resolution Date Last Treatment Date Treating Clinician Comments UNSP DEMENTIA, UNSP SEVERITY, WITHOUT BEH/PSYCH/MO OD/ANX Active 02-07 00:00: 00 ESSENTIAL (PRIMARY) HYPERTENSION Active 02-07 00:00: 00 AGE-RELATED OSTEOPOROSIS W/O CURRENT PATHOLOGICAL FRACTURE Active 02-07 00:00: 00 PURE HYPERCHOLEST EROLEMIA, UNSPECIFIED Active 02-07 00:00: 00 HYPOTHYROIDI SM, UNSPECIFIED Active 02-07 00:00: 00 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 Ordering Clinician Indication Dosage Frequency Signature (SIG) Comments Components alendronate 70 mg tablet 7- 00:00: 00 Yes [id number] Per instruc tions EVERY WEEK Per instructio ns EVERY WEEK (route: oral) Med Classific ation: Endocrine amlodipine 5 mg tablet 09-12 00:00: 00 Yes [id number] 1 tablet DAILY 1 tablet DAILY (route: oral) Med Classific ation: Cardiovas cular Therapy Agents atorvastati n 40 mg tablet 09-12 00:00: 00 Yes [id number] 1 tablet BEDTIME 1 tablet BEDTIME (route: oral) Med Classific ation: Cardiovas cular Therapy Agents B-100 Complex ER 100 mg tablet,exte nded release 09-12 00:00: 00 Yes [id number] 1 tablet DAILY 1 tablet DAILY (route: oral) Med Classific ation: Electroly te Balance-N utritiona l Products Cerefolin Brain Wellness 600 mg-2 mg-6 mg tablet 09-12 00:00: 00 Yes [id number] 1 tablet DAILY 1 tablet DAILY (route: oral) Med Classific ation: Alternati ve Therapy cyanocobala min (vit B-12) 1,000 mcg tablet 09-12 00:00: 00 Yes [id number] 1 tablet DAILY 1 tablet DAILY (route: oral) Med Classific ation: Electroly te Balance-N utritiona l Products donepezil 10 mg tablet 09-12 00:00: 00 Yes [id number] 1 tablet DAILY 1 tablet DAILY (route: oral) Med Classific ation: Cognitive Disorder Therapy levothyroxi ne 112 mcg tablet 09-12 00:00: 00 Yes [id number] 1 tablet DAILY 1 tablet DAILY (route: oral) Med Classific ation: Endocrine lisinopril 20 mg tablet 09-12 00:00: 00 Yes [id number] 1 tablet DAILY 1 tablet DAILY (route: oral) Med Classific ation: Cardiovas cular Therapy Agents multivitami n tablet 09-12 00:00: 00 Yes [id number] 1 tablet DAILY 1 tablet DAILY (route: oral) Med Classific ation: Electroly te Balance-N utritiona l Products Vitamin D3 25 mcg (1,000 unit) tablet 09-12 00:00: 00 Yes [id number] 1 tablet DAILY 1 tablet DAILY (route: oral) Med Classific ation: Electroly te Balance-N utritiona l Products Immunizations Ordered Immunization Name Filled Immunization Name Date Status Comments Refusal Reason COVID BOOSTER, COVID BOOSTER 2023-10-13 00:00:00 INFLUENZA, TIV (INACTIVATED) 2023-10-13 00:00:00 Vital Signs Vital Name Observation Time Observation Value Commen ts Temperature 2024-10-03 11:58:00.000 98.5 [degF] Temperature 2024-09-26 11:52:00.000 97.3 [degF] Temperature 2024-09-19 13:16:00.000 98.1 [degF] Temperature 2024-09-18 12:16:00.000 98.3 [degF] Temperature 2024-09-12 10:55:00.000 99.5 [degF] BMI (%) 2024-09-12 10:55:00.000 17 kg/m2 Height 2024-09-12 10:55:00.000 62 [in_us] Pulse 2024-10-03 11:58:00.000 70 /min Pulse 2024-09-26 11:52:00.000 77 /min Pulse 2024-09-19 13:16:00.000 84 /min Pulse 2024-09-18 12:16:00.000 66 /min Pulse 2024-09-12 10:55:00.000 72 /min O2 Saturation (%) 2024-10-03 11:58:00.000 96 % O2 Saturation (%) 2024-09-26 11:52:00.000 97 % O2 Saturation (%) 2024-09-18 12:16:00.000 96 % O2 Saturation (%) 2024-09-12 10:55:00.000 97 % Respirations 2024-10-03 11:58:00.000 18 /min Respirations 2024-09-26 11:52:00.000 20 /min Respirations 2024-09-19 13:16:00.000 18 /min Respirations 2024-09-18 12:16:00.000 16 /min Respirations 2024-09-12 10:55:00.000 18 /min Weight (lbs) 2024-09-12 10:55:00.000 96 [lb_av] Systolic Blood Pressure 2024-10-03 11:58:00.000 110 mm [Hg] Systolic Blood Pressure 2024-09-26 11:52:00.000 118 mm [Hg] Systolic Blood Pressure 2024-09-19 13:16:00.000 127 mm [Hg] Systolic Blood Pressure 2024-09-18 12:16:00.000 102 mm [Hg] Systolic Blood Pressure 2024-09-12 10:55:00.000 114 mm [Hg] Diastolic Blood Pressure 2024-10-03 11:58:00.000 60 mm [Hg] Diastolic Blood Pressure 2024-09-26 11:52:00.000 58 mm [Hg] Diastolic Blood Pressure 2024-09-19 13:16:00.000 67 mm [Hg] Diastolic Blood Pressure 2024-09-18 12:16:00.000 58 mm [Hg] Diastolic Blood Pressure 2024-09-12 10:55:00.000 60 mm [Hg] Plan of Treatment Planned Activity Planned Date Details Comments Future Scheduled Test SKILLED NU RSE TO EVALUATE PATIENT, IDENTIFY PRIMARY AND CO-MORBID CONDITIONS CODED PER CODING GUIDELINES, AND DEVELOP PATIENT SPECIFIC PLAN OF CARE THAT INCLUDES PATIENT GOAL FOR HOME HEALTH. [code = SKILLED NURSE TO EVALUATE PATIENT, IDENTIFY PRIMARY AND CO-MORBID CONDITIONS CODED PER CODING GUIDELINES, AND DEVELOP PATIENT SPECIFIC PLAN OF CARE THAT INCLUDES PATIENT GOAL FOR HOME HEALTH.] Future Scheduled Test SKILLED NU RSE FOR O/A AND TEACHING OF ENDOCRINE SYSTEM TO IDENTIFY CHANGES ASSOCIATED WITH EXACERBATION OF HYPOTHYROIDISM FOR EARLY INTERVENTION OF COMPLICATIONS. [code = SKILLED NURSE FOR O/A AND TEACHING OF ENDOCRINE SYSTEM TO IDENTIFY CHANGES ASSOCIATED WITH EXACERBATION OF HYPOTHYROIDISM FOR EARLY INTERVENTION OF COMPLICATIONS.] Future Scheduled Test PHYSICAL T HERAPIST TO EVALUATE PATIENT FOR ENDURANCE MUSCLE WEAKNESS [code = PHYSICAL THERAPIST TO EVALUATE PATIENT FOR ENDURANCE MUSCLE WEAKNESS] Future Scheduled Test SKILLED NU RSE TO PROVIDE TEACHING ON SIGNS AND SYMPTOMS AND MANAGEMENT OF HYPERTENSION. [code = SKILLED NURSE TO PROVIDE TEACHING ON SIGNS AND SYMPTOMS AND MANAGEMENT OF HYPERTENSION.] Future Scheduled Test SKILLED NU RSE FOR OBSERVATION AND ASSESSMENT TO IDENTIFY CHANGES ASSOCIATED WITH DEMENTIA AND TEACHING RELATED TO SAFETY MEASURES TO PREVENT INJURY, ELOPEMENT RISKS, BEHAVIOR CHANGES, ACTIVITIES, AND ENVIRONMENTAL CHANGES ALL SECONDARY TO IMPAIRED COGNITIVE STATUS. [code = SKILLED NURSE FOR OBSERVATION AND ASSESSMENT TO IDENTIFY CHANGES ASSOCIATED WITH DEMENTIA AND TEACHING RELATED TO SAFETY MEASURES TO PREVENT INJURY, ELOPEMENT RISKS, BEHAVIOR CHANGES, ACTIVITIES, AND ENVIRONMENTAL CHANGES ALL SECONDARY TO IMPAIRED COGNITIVE STATUS.] Future Scheduled Test SKILLED NU RSE FOR O/A AND SKILLED TEACHING RELATED TO SIGNS AND SYMPTOMS AND MANAGEMENT OF ANEMIA. [code = SKILLED NURSE FOR O/A AND SKILLED TEACHING RELATED TO SIGNS AND SYMPTOMS AND MANAGEMENT OF ANEMIA.] Future Scheduled Test SKILLED NU RSE FOR O/A AND SKILLED TEACHING RELATED TO SIGNS AND SYMPTOMS AND MANAGEMENT OF OSTEOPOROSIS [code = SKILLED NURSE FOR O/A AND SKILLED TEACHING RELATED TO SIGNS AND SYMPTOMS AND MANAGEMENT OF OSTEOPOROSIS] Future Scheduled Test PATIENT [place] S A RISK OF HOSPITALIZATION AND ED USE. SKILLED NURSE TO ESTABLISH SUPPORT MEASURES TO MINIMIZE RISK OF HOSPITALIZATION AND ED USE, AND INSTRUCT PATIENT/CAREGIVER ON METHODS TO REDUCE AVOIDABLE HOSPITALIZATION AND ED USE. [code = PATIENT HAS A RISK OF HOSPITALIZATION AND ED USE. SKILLED NURSE TO ESTABLISH SUPPORT MEASURES TO MINIMIZE RISK OF HOSPITALIZATION AND ED USE, AND INSTRUCT PATIENT/CAREGIVER ON METHODS TO REDUCE AVOIDABLE HOSPITALIZATION AND ED USE.] Future Scheduled Test SKILLED NU RSE TO PROVIDE INSTRUCTION TO PATIENT/CAREGIVER RELATED TO DISCHARGE PLANNING. [code = SKILLED NURSE TO PROVIDE INSTRUCTION TO PATIENT/CAREGIVER RELATED TO DISCHARGE PLANNING.] Future Scheduled Test SKILLED NU RSE TO PERFORM ENVIRONMENTAL SAFETY RISK ASSESSMENT AND FALL RISK ASSESSMENT AND PROVIDE INSTRUCTION TO IMPLEMENT ENVIRONMENTAL SAFETY AND FALL PREVENTION STRATEGIES THROUGHOUT THE CERTIFICATION PERIOD. SKILLED NURSE WILL MAINTAIN SITUATIONAL AWARENESS AND WILL NOTIFY CLINICAL LINOLEUM LAYER AND PHYSICIAN/PROVIDER WITH ANY CHANGE IN CONDITION. [code = SKILLED NURSE TO PERFORM ENVIRONMENTAL SAFETY RISK ASSESSMENT AND FALL RISK ASSESSMENT AND PROVIDE INSTRUCTION TO IMPLEMENT ENVIRONMENTAL SAFETY AND FALL PREVENTION STRATEGIES THROUGHOUT THE CERTIFICATION PERIOD. SKILLED NURSE WILL MAINTAIN SITUATIONAL AWARENESS AND WILL NOTIFY CLINICAL LINOLEUM LAYER AND PHYSICIAN/PROVIDER WITH ANY CHANGE IN CONDITION.] Future Scheduled Test SKILLED NU RSE FOR OBSERVATION AND ASSESSMENT OF PATIENT S PAIN LEVEL AND EFFECTIVENESS OF PAIN MANAGEMENT REGIMEN. SKILLED NURSE TO INSTRUCT PATIENT/CAREGIVER REGARDING PHARMACOLOGIC AND NON-PHARMACOLOGIC PAIN CONTROL MEASURES. SKILLED NURSE TO REPORT TO PHYSICIAN IF PAIN LEVEL IS OUTSIDE OF ESTABLISHED PARAMETERS. [code = SKILLED NURSE FOR OBSERVATION AND ASSESSMENT OF PATIENT S PAIN LEVEL AND EFFECTIVENESS OF PAIN MANAGEMENT REGIMEN. SKILLED NURSE TO INSTRUCT PATIENT/CAREGIVER REGARDING PHARMACOLOGIC AND NON-PHARMACOLOGIC PAIN CONTROL MEASURES. SKILLED NURSE TO REPORT TO PHYSICIAN IF PAIN LEVEL IS OUTSIDE OF ESTABLISHED PARAMETERS.] Future Scheduled Test SKILLED NU RSE TO ASSESS PATIENT'S SKIN INTEGRITY AND INSTRUCT PATIENT/CAREGIVER ON MEASURES TO PREVENT PRESSURE ULCERS. [code = SKILLED NURSE TO ASSESS PATIENT'S SKIN INTEGRITY AND INSTRUCT PATIENT/CAREGIVER ON MEASURES TO PREVENT PRESSURE ULCERS.] Future Scheduled Test SKILLED NU RSE TO REVIEW PATIENT MEDICATIONS (PRESCRIPTION/OTC). INSTRUCT PATIENT/CAREGIVER ON ALL MEDICATIONS INCLUDING PURPOSE, WHEN TO TAKE, IMPORTANCE OF MEDICATION ADHERENCE, MONITORING OF EFFECTIVENESS, ADVERSE DRUG REACTIONS, POSSIBLE SIDE EFFECTS, AND WHEN TO NOTIFY AGENCY OR PHYSICIAN/PROVIDER OF ANY CONCERNS. [code = SKILLED NURSE TO REVIEW PATIENT MEDICATIONS (PRESCRIPTION/OTC). INSTRUCT PATIENT/CAREGIVER ON ALL MEDICATIONS INCLUDING PURPOSE, WHEN TO TAKE, IMPORTANCE OF MEDICATION ADHERENCE, MONITORING OF EFFECTIVENESS, ADVERSE DRUG REACTIONS, POSSIBLE SIDE EFFECTS, AND WHEN TO NOTIFY AGENCY OR PHYSICIAN/PROVIDER OF ANY CONCERNS.] Future Scheduled Test PHYSICAL T HERAPY TO EVALUATE AND TREAT. PHYSICAL THERAPY EVALUATION PERFORMED. NO ADDITIONAL VISITS REQUIRED.89-YEAR-OLD FEMALE REFERRED FOR HOME SAFETY ASSESSMENT AND THE NEEDS FOR SKILLED PHYSICAL THERAPY IN THE HOME ENVIRONMENT. PATIENT HAD A BRIEF HOSPITALIZATION WITH DEHYDRATION IS CURRENTLY RETURNING HOME WITH NURSING AND PHYSICAL THERAPY ORDERED. PAST MEDICAL HISTORY SIGNIFICANT FOR ANEMIA. PATIENT'S DAUGHTER AND GRANDDAUGHTER PRESENT FOR INITIAL PHYSICAL THERAPY ASSESSMENT. PATIENT DOES LIVE ALONE HOWEVER HAS FAMILY IN THE [place] WHO ARE ABLE TO ASSIST WITH ACTIVITIES OF DAILY LIVING NEEDED. FAMILY AND PATIENT BOTH REPORT THAT SHE IS VERY INDEPENDENT ABLE TO COMPLETE MOST ACTIVITIES OF DAILY LIVING INDEPENDENTLY AT THIS TIME. UPON EVALUATION PATIENT DENIES PAIN REPORTS DOING WELL. VITALS ASSESSED, STABLE, REFER TO DOCUMENTATION FOR SPECIFICS. PRESENTS WITH FUNCTIONAL RANGE OF MOTION OF THE TRUNK AND EXTREMITIES ALL PLANES. STRENGTH GROSSLY ASSESSED SEATED POSITION USING MANUAL MUSCLE TESTING ALL MAJOR MUSCLE GROUPS ASSESSED 5 OUT OF 5. PATIENT IS INDEPENDENT WITH BED MOBILITY. TRANSFERS SIT THE STAND FROM SEVERAL SURFACES WITHIN THE HOME INDEPENDENTLY. IMMEDIATE STANDING BALANCE GOOD DYNAMIC STANDING BALANCE GOOD WELL. TIMED UP AND GO 10 SECONDS NOT USING ASSISTIVE DEVICE ABLE TO DEMONSTRATE GOOD SAFETY AWARENESS WITH AMBULATION WITHIN THE HOME ENVIRONMENT. PATIENT ABLE TO ASCEND AND DESCEND FULL FLIGHT OF STAIRS WITH RAIL TO ACCESS THE SECOND LEVEL OF THE HOME WITH GOOD SAFETY AWARENESS WELL. PATIENT DEMONSTRATING NO SHORTNESS OF BREATH AT THE CONCLUSION OF THE EVALUATION INCLUDING ALL ACTIVITIES SUCH MUSCLE TESTING, TRANSFERS GATE STAIRS AND BALANCE ASSESSMENT. BASED ON THE AFOREMENTIONED EVALUATIVE FINDINGS, PATIENT WILL NOT REQUIRE FURTHER PHYSICAL THERAPY VISITS SHE IS SAFE AND INDEPENDENT IN THE HOME ENVIRONMENT. PHYSICAL THERAPY DISCUSSED FINDINGS WITH PATIENT WELL FAMILY WHO ARE IN AGREEMENT. PATIENT NOT TAKING UP FOR CONTINUED PHYSICAL THERAPY AT THIS TIME NURSING REMAINS ACTIVE. [code = PHYSICAL THERAPY TO EVALUATE AND TREAT. PHYSICAL THERAPY EVALUATION PERFORMED. NO ADDITIONAL VISITS REQUIRED.89-YEAR-OLD FEMALE REFERRED FOR HOME SAFETY ASSESSMENT AND THE NEEDS FOR SKILLED PHYSICAL THERAPY IN THE HOME ENVIRONMENT. PATIENT HAD A BRIEF HOSPITALIZATION WITH DEHYDRATION IS CURRENTLY RETURNING HOME WITH NURSING AND PHYSICAL THERAPY ORDERED. PAST MEDICAL HISTORY SIGNIFICANT FOR ANEMIA. PATIENT'S DAUGHTER AND GRANDDAUGHTER PRESENT FOR INITIAL PHYSICAL THERAPY ASSESSMENT. PATIENT DOES LIVE ALONE HOWEVER HAS FAMILY IN THE AREA WHO ARE ABLE TO ASSIST WITH ACTIVITIES OF DAILY LIVING NEEDED. FAMILY AND PATIENT BOTH REPORT THAT SHE IS VERY INDEPENDENT ABLE TO COMPLETE MOST ACTIVITIES OF DAILY LIVING INDEPENDENTLY AT THIS TIME. UPON EVALUATION PATIENT DENIES PAIN REPORTS DOING WELL. VITALS ASSESSED, STABLE, REFER TO DOCUMENTATION FOR SPECIFICS. PRESENTS WITH FUNCTIONAL RANGE OF MOTION OF THE TRUNK AND EXTREMITIES ALL PLANES. STRENGTH GROSSLY ASSESSED SEATED POSITION USING MANUAL MUSCLE TESTING ALL MAJOR MUSCLE GROUPS ASSESSED 5 OUT OF 5. PATIENT IS INDEPENDENT WITH BED MOBILITY. TRANSFERS SIT THE STAND FROM SEVERAL SURFACES WITHIN THE HOME INDEPENDENTLY. IMMEDIATE STANDING BALANCE GOOD DYNAMIC STANDING BALANCE GOOD WELL. TIMED UP AND GO 10 SECONDS NOT USING ASSISTIVE DEVICE ABLE TO DEMONSTRATE GOOD SAFETY AWARENESS WITH AMBULATION WITHIN THE HOME ENVIRONMENT. PATIENT ABLE TO ASCEND AND DESCEND FULL FLIGHT OF STAIRS WITH RAIL TO ACCESS THE SECOND LEVEL OF THE HOME WITH GOOD SAFETY AWARENESS WELL. PATIENT DEMONSTRATING NO SHORTNESS OF BREATH AT THE CONCLUSION OF THE EVALUATION INCLUDING ALL ACTIVITIES SUCH MUSCLE TESTING, TRANSFERS GATE STAIRS AND BALANCE ASSESSMENT. BASED ON THE AFOREMENTIONED EVALUATIVE FINDINGS, PATIENT WILL NOT REQUIRE FURTHER PHYSICAL THERAPY VISITS SHE IS SAFE AND INDEPENDENT IN THE HOME ENVIRONMENT. PHYSICAL THERAPY DISCUSSED FINDINGS WITH PATIENT WELL FAMILY WHO ARE IN AGREEMENT. PATIENT NOT TAKING UP FOR CONTINUED PHYSICAL THERAPY AT THIS TIME NURSING REMAINS ACTIVE.] Goal Patient Goal - T O BE ABLE TO WALK AGAIN INDEPENDENTLY ... Goal Provider Goal - A PLAN OF CARE WILL BE ESTABLISHED THAT MEETS PATIENT'S CUSTODIAL NEEDS AND INCLUDES PATIENT GOAL FOR HOME HEALTH. Goal Provider Goal - PATIENT/CAREGIVER WILL VERBALIZE SIGNS AND SYMPTOMS OF EXACERBATION OF ENDOCRINE DIAGNOSIS TO REPORT TO NURSE/PHYSICIAN THROUGHOUT THE CERTIFICATION PERIOD. Goal Provider Goal - A PHYSICAL THERAPY EVALUATION TO BE COMPLETED WITH RECOMMENDATIONS AND/OR WRITTEN PLAN OF TREATMENT ESTABLISHED FOR PHYSICIAN S SIGNATURE. Goal Provider Goal - PATIENT/CAREGIVER WILL VERBALIZE SIGNS AND SYMPTOMS OF HYPERTENSION AND WILL BE ABLE TO DEMONSTRATE ABILITY TO MANAGE EXACERBATION BY END OF THE EPISODE. Goal Provider Goal - PATIENT/CAREGIVER WILL VERBALIZE /DEMONSTRATE APPROPRIATE ENVIRONMENTAL/SAFETY MODIFICATIONS IN RESPONSE TO BEHAVIOR/COGNITIVE CHANGES ASSOCIATED WITH DEMENTIA DIAGNOSIS THROUGHOUT THE CERTIFICATION PERIOD. Goal Provider Goal - PATIENT/CARGIVER WILL VERBALIZE UNDERSTANDING OF ANEMIA INCLUDING SIGNS AND SYMPTOMS, MANAGEMENT OF COMPLICATIONS, AND PRESCRIBED TREATMENT REGIMEN BY END OF EPISODE. Goal Provider Goal - PATIENT/CAREGIVER WILL VERBALIZE UNDERSTANDING OF OSTEOPOROSIS MUSCULOSKELETAL DISEASE INCLUDING SIGNS AND SYMPTOMS, MANAGEMENT, AND PRESCRIBED TREATMENT REGIMEN BY END OF EPISODE. Goal Provider Goal - PATIENT WILL HAVE SUPPORT MEASURES ESTABLISHED TO PREVENT HOSPITALIZATION AND ED USE AND PATIENT/CAREGIVER WILL VERBALIZE/DEMONSTRATE METHODS TO REDUCE AVOIDABLE HOSPITALIZATION AND ED USE BY END OF EPISODE. Goal Provider Goal - PATIENT/CAREGIVER WILL VERBALIZE UNDERSTANDING OF DISCHARGE PLANNING INSTRUCTIONS BY DATE OF DISCHARGE. Goal Provider Goal - PATIENT/CAREGIVER WILL VERBALIZE/DEMONSTRATE EFFECTIVE ENVIRONMENTAL SAFETY AND FALL PREVENTION STRATEGIES, WILL REMAIN SAFE IN THE COMMUNITY, AND WILL BE FREE OF DANGER TO SELF AND OTHERS THROUGHOUT THE CERTIFICATION PERIOD. Goal Provider Goal - PATIENT/CAREGIVER WILL DEMONSTRATE UNDERSTANDING OF PHARMACOLOGIC AND NONPHARMACOLOGIC PAIN CONTROL MEASURES AND PATIENT WILL HAVE IMPROVEMENT IN PAIN INTERFERING WITH ACTIVITY EVIDENCED BY PAIN AT A LEVEL THAT IS ACCEPTABLE TO THE PATIENT AND PAIN LEVEL WITHIN ESTABLISHED PARAMETERS BY END OF CERTIFICATION PERIOD. Goal Provider Goal - PATIENT/CAREGIVER WILL VERBALIZE UNDERSTANDING OF PRESSURE ULCER PREVENTION BY END OF THE EPISODE. Goal Provider Goal - PATIENT/CAREGIVER WILL VERBALIZE UNDERSTANDING OF EDUCATION PROVIDED ON MEDICATIONS BY THE END OF THE CERTIFICATION PERIOD. Goal Provider Goal - NONE Progress Notes Progress Notes <paragraph>[Visit Date: 2024 by LIBIA TILLMAN RN]:</paragraph><paragraph>SNV 10/03/24</paragraph><paragraph></paragraph><paragraph>1. ABNORMAL FINDINGS/SIGNIFICANT CHANGES: ALL VITALS WITHIN SET PARAMETERS ALL SYSTEM WITHIN NORMAL LIMITS</paragraph><paragraph></paragraph><paragraph>2. CARE COORDINATION DETAILS: NONE NEEDED</paragraph><paragraph></paragraph><paragraph>3. SKILLED PROCEDURE PERFORMED THIS VISIT: NONE NEEDED THIS VISIT</paragraph><paragraph></paragraph><paragraph>4. NEXT PHYSICIAN/PROVIDER APPT: DR. MELENDEZ PCP 10/05/24</paragraph><paragraph></paragraph><paragraph>5. PLAN/FOLLOW-UP NEEDED FOR NEXT VISIT: PHYSICAL ASSESSMENT, SAFETY AND FALL PREVENTION EDUCATION</paragraph><paragraph></paragraph><paragraph>ADDRESS ABOVE APPROPRIATE IN NARRATIVE BELOW: PATIENT ALERT ORIENTATED X3 IN [employer] PATIENT WAS SEEN TODAY BY [facility] MEALS ON WHEELS AND LIFE ALERT BUTTON. PATIENT'S NIECE PRESENT DURING VISIT PATIENT AND NIECE EDUCATED ON FALL PREVENTION WELL DONEPEZIL USE AND SIDE EFFECTS. PATIENT DENIES ANY FEVERS CHILLS NAUSEA VOMITING DIARRHEA ABNORMAL SHORTNESS OF BREATH CHEST PAIN RECENT FALLS RECENT MEDICATION CHANGES ED VISITS. SN ASSESSMENT LUNG SOUNDS CLEAR NO WHEEZING OR CRACKLES NO LOWER EXTREMITIES EDEMA BOWEL SOUNDS X4 LAST BOWEL MOVEMENT TODAY ABDOMEN SOFT NONTENDER SKIN DRY AND INTACT. PATIENT AND NIECE EDUCATED ON CALLING [employer] FOR ANY CONCERNS OR CHANGE IN CONDITION WELL NEXT SN VISIT BOTH VERBALIZED UNDERSTANDING</paragraph> Encounters Start Date/Time End Date/Time Encounter Type Admission Type Attending Clinicians Care Facility Care Department Encounter ID Discharge Date Discharge Status Discharge Condition Discharge Reason Percent Goals Met 2024-09-12 00:00:00 2024-11-10 00:00:00 Outpatient NEW ADMISSION GAVIN MONACO [facility] [id number]
== END 2024-10-05 12:23 | disposition home or self-care (01) ==
LOC: HO.HMCFM 11:00
PROVIDERS: PCP Family Medicine; Visit Provider Family Medicine
DX: R41.82 Altered mental status, unspecified (principal); D64.9 Anemia, unspecified

== ENCOUNTER 2024-10-19 13:47 | Outpatient (AMB) | payer MEDICARE, OTHER, SELFPAY ==
--- NOTE | 2024-10-19 13:50 | MHC.PC.OV ---
Vital Signs 10/19/24 13:56 Height 5 ft 2 in Weight 101 lb 6 oz BMI 18.5 BP 117/58 L Blood Pressure Location Lt brachial Position Sitting Respiration 12 Pulse 74 Pulse Source Pulse Oximeter Temp 97.0 F Temp Source Temporal Artery Scan Pulse Oximetry (%) 99 Oxygen Delivery Method Room Air Intake Visit Reasons: f/u hypothyroidism, mild anemia Intake Note: Follow up on hypothyroidism. 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: No Allergies Seasonal Allergies Allergy (Verified 10/19/24 13:53) stuffy noise Medication List - Last Reconciled 10/19/24 by Watson Erazo MD [id number]-[id number]-V-mefolate 600-2-6 mg ([employer] Brain BlueWhale) 1 tab PO DAILY 90 days alendronate 70 mg PO QWEEK amlodipine 5 mg PO DAILY atorvastatin 40 mg PO BEDTIME 90 days donepezil 10 mg PO DAILY 30 days fluticasone propionate 50 mcg/actuation 1 spray intranasal BID 90 days levothyroxine 112 mcg PO DAILY 90 days lisinopril 20 mg PO DAILY 90 days Tobacco use date assessed: 10/19/24 Fall risk assessment: No Falls in past year Last assessed Fall Risk: 10/19/24 Dental Screening Dental Screen Date: 10/05/24 HPI f/u hypothyroidism, mild anemia HPI Details 89 y/o female presents to f/u hypothyroidism, mild anemia. Reviewed labs with pt. Improving anemia. AST 34. TSH 0.12 uIU/mL. Free T4 1.50 ng/dL. Total t3 66 ng/dL. PFSH Medical History Hypercholesterolemia Osteoporosis Hypothyroidism Essential hypertension Surgical History Breast cyst History of tonsillectomy History of total hysterectomy with bilateral salpingo-oophorectomy (BSO) Family History Father Myocardial infarction CHF (congestive heart failure) HTN (hypertension) CVD (cardiovascular disease) Mother CVD (cardiovascular disease) Sister Breast cancer Sister Breast cancer Social History (Updated 08/14/24 @ 12:02 by Kimberly Lei MA) Housing: House Unable to assess alcohol history related to: Unknown Alcohol intake: unknown Patient Tobacco Use Status: Never used Tobacco e-Cigarette/Vaping Use: Never Used Second Hand Smoke Exposure: No service: No Current occupational status: retired Current occupational exposures/hazards: No Cognitive needs: No Hearing needs: No Vision needs: No Questionnaire PHQ-9 Over the last 2 weeks, how often have you been bothered by any of the following problems? 1. Little interest or pleasure in doing things: not at all 2. Feeling down, depressed, or hopeless: not at all 3. Trouble falling or staying asleep, or sleeping too much: not at all 4. Feeling tired or having little energy: not at all 5. Poor appetite or overeating: not at all 6. Feeling bad about yourself - or that you are a failure or have let yourself or your family down: not at all 7. Trouble concentrating on things, such as reading the newspaper or watching television: not at all 8. Moving or speaking so slowly that other people could have noticed. Or the opposite - being so fidgety or restless that you have been moving around a lot more than usual: not at all 9. Thoughts that you would be better off or of hurting yourself in some way: not at all Total score: 0 Depression Screening Interpretation: Negative Depression Screening Done: Yes 01395 - PHQ-9 Billing: Yes Source: Developed by Drs. Arthur Warren, Valeria Foster, Marco Spain and colleagues, with an educational brittany from [employer]. Thrive Questionnaire Date Thrive assessed: 03/21/24 I am a: Patient What is your living situation today?: I have a steady place to live Within the past 12 months, did the food you bought not last and you didn't have the money to get more?: Never true Within the past 12 months, did you worry whether your food would run out before you got money to buy more?: Never true Do you have trouble paying for medicines?: No Do you have trouble getting transportation to medical appointments?: No Do you have trouble paying your heating and electricity bill?: No Do you have trouble taking care of your child, family member or friend?: No Do you have trouble with day-to-day activities such as bathing, preparing meals, shopping, managing finances, etc.?: No Are you currently unemployed and looking for a job?: No Are you interested in more education?: No Please select the resources that you would like help with: None Currently or been in a relationship where the following occur: I choose not to answer THRIVE Score: 0 LANNY-7 AMB Questionnaire LANNY-7 Date LANNY - 7 assessed: 10/19/24 Feeling nervous, anxious, or on edge: 0 = Not at all Not being able to stop or control worryin = Not at all Worrying too much about different things: 0 = Not at all Trouble relaxin = Not at all Being so restless that it is hard to sit still: 0 = Not at all Becoming easily annoyed or irritable: 0 = Not at all Feeling afraid as if something awful might happen: 0 = Not at all Total LANNY-7 score (0-4 normal; 5-9 mild; 10-14 moderate; 15-21 severe): 0 Source: Developed by Drs. Arthur Warren, Valeria Foster, Marco Spain and colleagues, with an educational brittany from [employer]. LANNY-7 Assessment Billing LANNY-7 Assessment Tool: LANNY-7 Assessment 04873 Review of Systems Const Denies chills, Denies fatigue, Denies fever(s), Denies headache(s) and Denies weakness ENT Denies dizziness and Denies headache(s) Card Denies dyspnea Resp Denies cough, Denies dyspnea, Denies wheezing and Denies other (shortness of breath) Musc Denies numbness and Denies tingling Neuro Denies dizziness, Denies headache(s), Denies numbness, Denies tingling and Denies weakness Psych Denies anxiety and Denies depression Endo Denies fatigue Aller/Immun Denies wheezing Physical exam (Primary Care) Vital Signs: Last Vital Signs Temp 97.0 F 10/19/24 13:56 Pulse 74 10/19/24 13:56 Resp 12 10/19/24 13:56 BP 117/58 L 10/19/24 13:56 Pulse Ox 99 10/19/24 13:56 Oxygen Delivery Method Room Air 10/19/24 13:56 BMI result Body Mass Index 18.5 Tobacco/Smoking Status: Tobacco use Status Tobacco use date assessed 10/19/24 10/19/24 13:58 Patient Tobacco Use Status Never used Tobacco 10/19/24 13:52 e-Cigarette/Vaping Use Never Used 10/19/24 13:52 PHQ-9: PHQ-9 Score PHQ-9: Total score 0 10/19/24 14:11 Depression Screening Interpretation: Negative Thrive Assessment: Date of Thrive Assessment Date Thrive assessed 03/21/24 10/19/24 13:52 Currently or been in a relationship where the following occur: I choose not to answer Const General: well developed; No acute distress Nutritional Appearance: well nourished Orientation/consciousness: patient oriented x3 HENMT Head: Yes normocephalic and Yes atraumatic Eyes General: appearance normal, both eyes and all related structures Pupils: Equal, round and reactive pupils present EOM: EOMs intact bilaterally Resp Effort & Inspection: normal respiratory effort Neuro General: patient oriented x3 and gait normal Cranial nerves: Yes Equal, round and reactive pupils present Psych Affect: normal affect Coding Level of Care Code Est Pt Level 3 (37874) Diagnoses Anemia D64.9 Hypothyroidism E03.9 Additional Codes LANNY-7 Assessment Billing - LANNY-7 Assessment Tool: LANNY-7 Assessment 31167 ([id number]) PHQ-9 - 08482 - PHQ-9 Billing: Yes ([id number]) Assessment & Plan Assessment & Plan (1) Anemia: Code(s): D64.9 - Anemia, unspecified Category: Medical Plan: Anemia is improving Hemoglobin now 10.6 Iron levels are okay. Unclear cause and may be anemia of chronic disease though her thyroid levels are off as well. See below Will adjust thyroid hormone levels and recheck H&H at next visit as well. (2) Hypothyroidism: Code(s): E03.9 - Hypothyroidism, unspecified Category: Medical Plan: TSH is suppressed on levothyroxine 112 mcg daily. T4 is within normal range However, T3 is a little low Will try adjusting levothyroxine; she will take 112 mcg daily except 1 day per week she will take half a tablet (56 mcg). Will recheck thyroid hormone levels prior to next visit discuss. Orders: Orders Free T4 (Free Thyroxine) Today E03.9 - Hypothyroidism, unspecified Triiodothyronine T3 Total Today E03.9 - Hypothyroidism, unspecified Thyroid Stimulating Hormone Today E03.9 - Hypothyroidism, unspecified Referrals [facility] Referral F03.90 - Unspecified dementia, unspecified severity, without behavioral disturbance, psychotic disturbance, mood disturbance, and anxiety, R41.3 - Other amnesia, R41.82 - Altered mental status, unspecified, R53.1 - Weakness Medications: Changed From levothyroxine 112 mcg PO DAILY 90 days 90 tabs 3RF To levothyroxine 1 tab (112mcg) daily Ross-Fr, 1/2 tab (56mcg) Sa orally daily; 90 tabs 3RF 90 days
[2024-10-19 13:56] VITALS: BP 117/58; PULSE 74; RESP 12; TEMP 36.1; O2SAT 99; BMI 18.5
== END 2024-10-19 14:25 | disposition home or self-care (01) ==
LOC: HO.HMCFM 13:48
PROVIDERS: PCP Family Medicine; Visit Provider Family Medicine
DX: D64.9 Anemia, unspecified (principal); E03.9 Hypothyroidism, unspecified

== ENCOUNTER → 2024-10-19 13:47 | Outpatient (BNVA) | payer MEDICARE, OTHER, SELFPAY | PROVIDERS: PCP Family Medicine; Visit Provider Family Medicine | DX: D64.9 Anemia, unspecified (principal); E03.9 Hypothyroidism, unspecified | CPT/HCPCS: 96127; 99212 ==

== ENCOUNTER → 2024-10-25 23:59 | Outpatient (BNV) | payer MEDICARE, OTHER, SELFPAY | PROVIDERS: PCP Family Medicine; Visit Provider Family Medicine | DX: F03.90 Unspecified dementia, unspecified severity, without behavioral disturbance, psychotic disturbance, mood disturbance, and anxiety (principal); I10 Essential (primary) hypertension; M81.0 Age-related osteoporosis without current pathological fracture | CPT/HCPCS: G0180 ==

== ENCOUNTER 2024-11-21 12:44 | Outpatient (REF) | payer MEDICARE, OTHER, SELFPAY ==
[2024-11-21 13:03] LABS: MANUAL DIFF FLAG NO
[2024-11-21 13:46] LABS: Hematocrit 32.6 % (37.0-47.0); Hemoglobin 10.1 g/dl (12.0-16.0); Imm Gran Abs Auto 0.01 X10*3/uL (0.00-0.03); Imm Gran Pct Auto 0.2 % (0.0-0.4); Lymphocytes Absolute Auto 1.8 X10*3/uL (1.2-4.9); Mean Corpuscular HGB Conc 31.0 g/dl (31.0-35.0); Mean Corpuscular Hemoglobin 31.1 pg (27.0-33.0); Mean Corpuscular Volume 100.3 fL (80.0-98.0); NRBC Abs Auto 0.000 X10*3/uL (0.0-0.012); NRBC Pct Auto 0.0 /100WBC (0.0-0.2); Platelet Count 228 X10*3/uL (160-400); Red Blood Count 3.25 X10*6/uL (4.20-5.50); White Blood Count 5.8 X10*3/uL (4.8-10.8)
[2024-11-21 14:25] LABS: Anion Gap 13 (12-20); Blood Urea Nitrogen 22 mg/dL (9-16); Calcium 9.9 mg/dL (8.4-10.2); Carbon Dioxide 26 mmol/L (22-29); Chloride 107 mmol/L (96-108); Estimated Glomerular Filt Rate 54; Iron 136 mcg/dL (30-160); Percent Iron Saturation 40 % (15-50); Potassium 4.5 mmol/L (3.3-5.1); Sodium 141 mmol/L (135-145); Total Iron Binding Capacity 337 mcg/dL (228-428); Unsaturated Iron Binding 201 ug/dL
[2024-11-21 14:40] LABS: Free T4 (Free Thyroxine) 1.07 ng/dL (0.71-1.85); Thyroid Stimulating Hormone 6.25 uIU/mL (0.32-4.0)
== END 2024-11-21 12:45 | disposition home or self-care (01) ==
LOC: HO.LAB 12:44
PROVIDERS: PCP Family Medicine; Visit Provider Family Medicine
DX: Z00.00 Encounter for general adult medical examination without abnormal findings (principal); D64.9 Anemia, unspecified; E03.9 Hypothyroidism, unspecified
CPT/HCPCS: 36415; 80048; 83540; 84439; 84443; 84480; 85025

== ENCOUNTER 2024-11-28 11:45 | Outpatient (AMB) | payer MEDICARE, OTHER, SELFPAY ==
--- NOTE | 2024-11-28 12:14 | A.OFFPC_ITS ---
Vital Signs 11/28/24 12:19 Height 5 ft 2 in Weight 105 lb 2 oz BMI 19.2 BP 116/60 Blood Pressure Location Lt brachial Position Sitting Respiration 18 Pulse 73 Pulse Source Pulse Oximeter Temp 97.6 F Temp Source Oral Pulse Oximetry (%) 97 Oxygen Delivery Method Room Air Intake Visit Reasons: reschedule from 11/26 follow up blood work Intake Note: patient is scheduled to follow up on lab results. Bi Tester Required: No Allergies Seasonal Allergies Allergy (Verified 11/28/24 12:18) stuffy noise Tobacco use date assessed: 10/19/24 Dental Screening Dental Screen Date: 10/05/24 HPI reschedule from 11/26 follow up blood work HPI Details 89 y/o female presents to f/u labs. Labs drawn 11/21/24. Reviewed labs with pt. Ongoing mild anemia. TSH went rom 0.12 uIU/mL to 6.25 uIU/mL. Free T4 1.07 ng/dL. Total T3 64 ng/dL. PFSH Medical History Hypercholesterolemia Osteoporosis Hypothyroidism Essential hypertension Surgical History Breast cyst History of tonsillectomy History of total hysterectomy with bilateral salpingo-oophorectomy (BSO) Family History Father Myocardial infarction CHF (congestive heart failure) HTN (hypertension) CVD (cardiovascular disease) Mother CVD (cardiovascular disease) Sister Breast cancer Sister Breast cancer Social History (Updated 08/14/24 @ 12:02 by Kimberly Lei MA) Housing: House Alcohol intake: unknown Patient Tobacco Use Status: Never used Tobacco e-Cigarette/Vaping Use: Never Used Second Hand Smoke Exposure: No service: No Current occupational status: retired Current occupational exposures/hazards: No Cognitive needs: No Hearing needs: No Vision needs: No Questionnaire Thrive Questionnaire Date Thrive assessed: 03/21/24 I am a: Patient What is your living situation today?: I have a steady place to live Within the past 12 months, did the food you bought not last and you didn't have the money to get more?: Never true Within the past 12 months, did you worry whether your food would run out before you got money to buy more?: Never true Do you have trouble paying for medicines?: No Do you have trouble getting transportation to medical appointments?: No Do you have trouble paying your heating and electricity bill?: No Do you have trouble taking care of your child, family member or friend?: No Do you have trouble with day-to-day activities such as bathing, preparing meals, shopping, managing finances, etc.?: No Are you currently unemployed and looking for a job?: No Are you interested in more education?: No Please select the resources that you would like help with: None Currently or been in a relationship where the following occur: I choose not to answer THRIVE Score: 0 LANNY-7 AMB Questionnaire LANNY-7 Date LANNY - 7 assessed: 10/19/24 Source: Developed by Drs. Arthur Warren, Valeria Foster, Marco Spain and colleagues, with an educational brittany from [employer]. Review of Systems Const Denies chills, Denies fatigue, Denies fever(s), Denies headache(s) and Denies weakness ENT Denies dizziness and Denies headache(s) Card Denies dyspnea Resp Denies cough, Denies dyspnea, Denies wheezing and Denies other (shortness of b reath) Musc Denies numbness and Denies tingling Neuro Denies dizziness, Denies headache(s), Denies numbness, Denies tingling and Denies weakness Psych Denies anxiety and Denies depression Endo Denies fatigue Aller/Immun Denies wheezing Physical exam (Primary Care) Vital Signs: Last Vital Signs Temp 97.6 F 11/28/24 12:19 Pulse 73 11/28/24 12:19 Resp 18 11/28/24 12:19 BP 116/60 11/28/24 12:19 Pulse Ox 97 11/28/24 12:19 Oxygen Delivery Method Room Air 11/28/24 12:19 BMI result Body Mass Index 19.2 Tobacco/Smoking Status: Tobacco use Status Tobacco use date assessed 10/19/24 11/28/24 12:16 Patient Tobacco Use Status Never used Tobacco 11/28/24 12:16 e-Cigarette/Vaping Use Never Used 11/28/24 12:16 Thrive Assessment: Date of Thrive Assessment Date Thrive assessed 03/21/24 11/28/24 12:16 Currently or been in a relationship where the following occur: I choose not to answer Const General: well developed; No acute distress Nutritional Appearance: well nourished Orientation/consciousness: patient oriented x3 HENMT Head: Yes normocephalic and Yes atraumatic Eyes General: appearance normal, both eyes and all related structures Pupils: Equal, round and reactive pupils present EOM: EOMs intact bilaterally Resp Effort & Inspection: normal respiratory effort Auscultation: clear to auscultation bilaterally Cardio Rate: regular rate Rhythm: regular rhythm Heart sounds: S1 normal heart sound present, S2 normal heart sound present, no gallops, no murmurs and no rubs Neuro General: patient oriented x3 and gait normal Cranial nerves: Yes Equal, round and reactive pupils present Psych Affect: normal affect Coding Level of Care Code Est Pt Level 4 (70305) Diagnoses Hypothyroidism E03.9 Mild anemia D64.9 Assessment & Plan Assessment & Plan (1) Hypothyroidism: Code(s): E03.9 - Hypothyroidism, unspecified Category: Medical Plan: TSH had been suppressed for several months. At last visit, advised patient to decrease thyroid hormone slightly and TSH now above normal range. Will have her resume prior dose of 112 mcg daily Refer her to endocrinology (2) Mild anemia: Code(s): D64.9 - Anemia, unspecified Category: Medical Plan: Hemoglobin had improved from 9.2 to 10.6 and now 10.1 MCV is mildly elevated Thyroid level is off slightly as above B12 level is elevated due to supplementation No blood in stools Will continue to monitor and recheck lab work prior to next visit. If there are any further concerns, could consider referral to Hematology- Oncology Orders: Orders Basic Metabolic Panel Today D64.9 - Anemia, unspecified, Z00.00 - Encounter for general adult medical examination without abnormal findings Reticulocyte Count Today D64.9 - Anemia, unspecified TSH reflex Free T4 Today D64.9 - Anemia, unspecified, Z00.00 - Encounter for general adult medical examination without abnormal findings Complete Blood Count Auto Diff Today D64.9 - Anemia, unspecified, Z00.00 - Encounter for general adult medical examination without abnormal findings IRON PROFILE Today D64.9 - Anemia, unspecified Ferritin Today D64.9 - Anemia, unspecified Vitamin B12 and Folate Today D64.9 - Anemia, unspecified, E53.8 - Deficiency of other specified B group vitamins Referrals Endocrinology Referral E03.9 - Hypothyroidism, unspecified
[2024-11-28 12:19] VITALS: BP 116/60; PULSE 73; RESP 18; TEMP 36.4; O2SAT 97; BMI 19.2
== END 2024-11-28 13:01 | disposition home or self-care (01) ==
LOC: HO.HMCFM 11:46
PROVIDERS: PCP Family Medicine; Visit Provider Family Medicine
DX: E03.9 Hypothyroidism, unspecified (principal); D64.9 Anemia, unspecified

== ENCOUNTER → 2024-11-28 11:45 | Outpatient (BNVA) | payer MEDICARE, OTHER, SELFPAY | PROVIDERS: PCP Family Medicine; Visit Provider Family Medicine | DX: I10 Essential (primary) hypertension (principal); D64.9 Anemia, unspecified; E03.9 Hypothyroidism, unspecified; E53.8 Deficiency of other specified B group vitamins | CPT/HCPCS: 99212 ==

== ENCOUNTER 2025-01-17 10:45 | Outpatient (AMB) | payer MEDICARE, OTHER, SELFPAY ==
[2025-01-17 10:59] VITALS: BP 120/60; PULSE 73; O2SAT 97; BMI 19.8
--- NOTE | 2025-01-17 10:59 | A.OFFVIS_ITS ---
Vital Signs 01/17/25 10:59 Height 5 ft 2 in Weight 108 lb 0.424 oz BMI 19.8 BP 120/60 Blood Pressure Location Rt brachial Position Sitting Pulse 73 Pulse Source Pulse Oximeter Pulse Oximetry (%) 97 Oxygen Delivery Method Room Air Intake Visit Reasons: Hypothyroidism Intake Note: NEW Patient presents today to establish care for Hypothyroidism, No acute complaints reported at this time. 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 Changer Required: No Accompanied by: Self / Same As Patient Allergies Seasonal Allergies Allergy (Verified 01/17/25 11:04) stuffy noise Medication List - Last Reconciled 01/17/25 by Robert Wu MD [id number]-R-mefolate 600-2-6 mg ([employer]) 1 tab PO DAILY 90 days alendronate 70 mg PO QWEEK amlodipine 5 mg PO DAILY atorvastatin 40 mg PO BEDTIME 90 days calcium citrate 250 mg PO BID donepezil 10 mg PO DAILY 30 days fluticasone propionate 50 mcg/actuation 1 spray intranasal BID 90 days levothyroxine 1 tab (112mcg) daily Ross-Fr, 1/2 tab (56mcg) Sa orally daily; 90 days lisinopril 20 mg PO DAILY 90 days HPI Comments Details: 89 yo female with mild cognitive decline, carotid artery stenosis, hypothyroidism, osteoporosis, seen in the office for initial evaluation of uncontrolled hypothyroidism. Here with niece Christen. Hypothyroidism Diagnosed with with hypothyroidism 10-15 years ago. Unclear etiology as she does not recall the reason, and the context is unclear also. Per PCP notes patient has had difficulty controlling her levothyroxine dose. We don't know the initial levothyroxine but per their report she was taking LT4 112mcg 6 days+ 56 mcg on sundays. On november 28, 2024, she was changed to 112 mcg daily. This has been managed by the PCP. Takes levothyroxine separate from other meds, but she might be eating soon after she takes the medication. She occasionally missed a day, but us mostly consistent. ROS good energy sleeps well no constipation always cold No hair falling or dry skin Osteoporosis drinks milk with serial every morning, otherwise not much calcium in diet takes vitamin D supplement She was placed on Foxamax 70 mg consistently for the last year last BMD done 2022, osteoporosis of LS, T score -2.8 She has a reasonable amoun of activity for her age Physical exam: General: Well appearing. NAD. Neck/Thyroid: Thyroid not palpable, no nodules. Eyes: No conjunctival injection, not lid lag or proptosis CV: RRR, no murmur. No edema. Resp:Lungs clear to auscultation bilaterally Abdomen: Soft, nontender. nondistended Extremities/Neuro: No weakness or tremor of outstretched hands Laboratory Tests 04/11/24 14:09 25-OH Vitamin D Total 40.5 Laboratory Tests 10/19/21 12/16/21 02/10/22 13:17 12:24 13:03 TSH 0.32 0.21 L 0.76 Free T4 1.78 1.34 Total T3 98 85 07/18/23 08/07/24 10/05/24 10:33 10:43 12:47 TSH 3.33 0.02 L 0.12 L Free T4 1.33 1.71 1.50 Total T3 77 66 L 11/21/24 13:01 TSH 6.25 H Free T4 1.07 Total T3 64 L PFSH Medical History Hypercholesterolemia Osteoporosis Hypothyroidism Essential hypertension Surgical History Breast cyst History of tonsillectomy History of total hysterectomy with bilateral salpingo-oophorectomy (BSO) Family History Father Myocardial infarction CHF (congestive heart failure) HTN (hypertension) CVD (cardiovascular disease) Mother CVD (cardiovascular disease) Sister Breast cancer Sister Breast cancer Social History Housing: House Alcohol intake: unknown Patient Tobacco Use Status: Never used Tobacco e-Cigarette/Vaping Use: Never Used Second Hand Smoke Exposure: No service: No Current occupational status: retired Current occupational exposures/hazards: No Cognitive needs: No Hearing needs: No Vision needs: No Physical Exam Vital Signs: Last Vital Signs Pulse 73 01/17/25 10:59 BP 120/60 01/17/25 10:59 Pulse Ox 97 01/17/25 10:59 Oxygen Delivery Method Room Air 01/17/25 10:59 BMI result Body Mass Index 19.8 Assessment & Plan Assessment & Plan (1) Hypothyroidism: Code(s): E03.9 - Hypothyroidism, unspecified Category: Medical Qualifiers: Hypothyroidism type: acquired Qualified Code(s): E03.9 - Hypothyroidism, unspecified Plan: Long-standing hypothyroidism with recent fluctuations in TSH levels, likely secondary to changes in levothyroxine dosing. The current TSH of 6.25 is elevated but asymptomatic. Given the advanced age and history of osteoporosis, the priority is to avoid over-treatment with levothyroxine to prevent potential side effects such as arrhythmias and bone resorption. The goal is to maintain a TSH between 4 and 5 mIU/L. - Investigations planned: Will check thyroid function tests today (TSH) to assess response to the dose change from 11/28/2024. - Medical treatment planned: Continue levothyroxine 112 mcg daily. No changes will be made based on today's visit until lab results are available. - Lifestyle modifications: Counseled on medication adherence for levothyroxine. If a dose is missed, it should be skipped and the next day's dose taken as scheduled, rather than doubling up on the same day, to avoid absorption issues. - Follow-up appointments: 3 months (2) Osteoporosis: Code(s): M81.0 - Age-related osteoporosis without current pathological fracture Category: Medical Qualifiers: Osteoporosis type: localized Presence of current pathological fracture: without current pathological fracture Qualified Code(s): M81.6 - Localized osteoporosis [[place]] Plan: Assessment: History of osteoporosis of the lumbar spine (T-score -2.8). Currently treated with alendronate weekly, taken cosistently for the last year, but it was ordered 2 years ago probably. Side effects of alendonate discussed. No dental work planned. Discussed a drug holiday in 3 years from now. - Investigations planned: An order will be placed for a bone density scan, as one is due this year. - Medical treatment planned: Continue alendronate once weekly. - Lifestyle modifications: Recommended starting calcium citrate supplementation for bone health. A prescription for calcium citrate 250 mg twice daily. Also advised that vitamin D level is adequate at 40 ng/mL and no additional supplementation is needed at this time. Plan 55 minutes spent reviewing previous records, labs, imaging, education and documenting in the chart Orders: Orders XR DEXA axial skeleton Today E03.9 - Hypothyroidism, unspecified, M81.0 - Age- related osteoporosis without current pathological fracture TSH reflex Free T4 Today E03.9 - Hypothyroidism, unspecified Medications: New calcium citrate 250 mg PO BID 60 tabs 3RF Coding Level of Care Code New Pt Level 4 (63483) Add On Problem Visit Only Diagnoses Acquired hypothyroidism E03.9 Hypothyroidism type: acquired Localized osteoporosis without current pathological fracture M81.6 Osteoporosis type: localized Presence of current pathological fracture: without current pathological fracture
== END 2025-01-17 11:57 | disposition home or self-care (01) ==
LOC: HO.ENCR 10:46
PROVIDERS: PCP Family Medicine; Visit Provider Student in an Organized Health Care Education/Training Program
DX: E03.9 Hypothyroidism, unspecified (principal); M81.6 Localized osteoporosis [Lequesne]
CPT/HCPCS: 99204; G2211

== ENCOUNTER → 2025-01-17 10:45 | Outpatient (BNVA) | payer MEDICARE, OTHER, SELFPAY | PROVIDERS: PCP Family Medicine; Visit Provider Student in an Organized Health Care Education/Training Program | DX: E03.9 Hypothyroidism, unspecified (principal); M81.6 Localized osteoporosis [Lequesne]; Z79.890 Hormone replacement therapy | CPT/HCPCS: 99202 ==

== ENCOUNTER 2025-01-21 11:34 | Outpatient (REF) | payer MEDICARE, OTHER, SELFPAY ==
[2025-01-21 14:02] LABS: Free T4 (Free Thyroxine) 1.24 ng/dL (0.71-1.85)
== END 2025-01-21 11:35 | disposition home or self-care (01) ==
LOC: HO.LAB 11:34
PROVIDERS: PCP Family Medicine; Visit Provider Student in an Organized Health Care Education/Training Program
DX: E03.9 Hypothyroidism, unspecified (principal)
CPT/HCPCS: 36415; 84439; 84443

== ENCOUNTER 2025-01-30 11:08 | Outpatient (AMB) | payer MEDICARE, OTHER, SELFPAY ==
[2025-01-30 11:14] VITALS: BP 116/76; PULSE 72; RESP 16; TEMP 36.4; O2SAT 97; BMI 19.8
--- NOTE | 2025-01-30 11:14 | A.OFFPC_ITS ---
Vital Signs 01/30/25 11:14 Height 5 ft 2 in Weight 108 lb 6 oz BMI 19.8 BP 116/76 Blood Pressure Location Lt brachial Position Sitting Respiration 16 Pulse 72 Pulse Source Pulse Oximeter Temp 97.5 F Temp Source Oral Pulse Oximetry (%) 97 Oxygen Delivery Method Room Air Intake Visit Reasons: f/u hypothyroidism, labs Intake Note: Follow up. 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 Accompanied by: neice Allergies Seasonal Allergies Allergy (Verified 01/30/25 11:15) stuffy noise Medication List - Last Reconciled 01/30/25 by Watson Erazo MD [id number]-helrbsi-W-mefolate 600-2-6 mg ([employer]) 1 tab PO DAILY 90 days alendronate 70 mg PO QWEEK amlodipine 5 mg PO DAILY atorvastatin 40 mg PO BEDTIME 90 days calcium citrate 250 mg PO BID cholecalciferol (vitamin D3) 25 mcg PO DAILY donepezil 10 mg PO DAILY 30 days fluticasone propionate 50 mcg/actuation 1 spray intranasal BID 90 days levothyroxine 1 lisinopril 20 mg PO DAILY 90 days mecobalamin (vitamin B12) PO multivitamin 1 tab PO DAILY vitamin B complex 1 cap PO DAILY Tobacco use date assessed: 01/30/25 Fall risk assessment: No Falls in past year Last assessed Fall Risk: 01/30/25 Dental Screening Dental Screen Date: 10/05/24 HPI f/u hypothyroidism, labs HPI Details 89 y/o female presents to f/u labs, hypo thyroidism. No recent labs to review. Blood pressure today 116/76, 72p. She is on lisinopril 20mg, amlodipine 5mg daily. Hx of elevated fasting glucose. A1c today 5.2%. [facility] Medical History Hypercholesterolemia Osteoporosis Hypothyroidism Essential hypertension Surgical History Breast cyst History of tonsillectomy History of total hysterectomy with bilateral salpingo-oophorectomy (BSO) Family History Father Myocardial infarction CHF (congestive heart failure) HTN (hypertension) CVD (cardiovascular disease) Mother CVD (cardiovascular disease) Sister Breast cancer Sister Breast cancer Social History (Updated 01/30/25 @ 11:21 by Emilee Camp CMA) Housing: House Alcohol intake: former Patient Tobacco Use Status: Never used Tobacco e-Cigarette/Vaping Use: Never Used Second Hand Smoke Exposure: No Use of substances other than those prescribed or required for medical reasons: No service: No Current occupational status: retired Current occupational exposures/hazards: No Cognitive needs: No Hearing needs: No Vision needs: No Questionnaire Thrive Questionnaire Date Thrive assessed: 03/21/24 I am a: Patient What is your living situation today?: I have a steady place to live Within the past 12 months, did the food you bought not last and you didn't have the money to get more?: Never true Within the past 12 months, did you worry whether your food would run out before you got money to buy more?: Never true Do you have trouble paying for medicines?: No Do you have trouble getting transportation to medical appointments?: No Do you have trouble paying your heating and electricity bill?: No Do you have trouble taking care of your child, family member or friend?: No Do you have trouble with day-to-day activities such as bathing, preparing meals, shopping, managing finances, etc.?: No Are you currently unemployed and looking for a job?: No Are you interested in more education?: No Currently or been in a relationship where the following occur: I choose not to answer THRIVE Score: 0 AUDIT C Alcohol Use Questionnaire (AUDIT-C) 1. How often do you have a drink containing alcohol?: Monthly or less 2. How many drinks containing alcohol do you have on a typical day when you are drinking?: 1 or 2 3. How often do you have six or more drinks on one occasion?: Never Total Score: 1 LANNY-7 AMB Questionnaire LANNY-7 Date LANNY - 7 assessed: 10/19/24 Source: Developed by Drs. Arthur Warren, Valeria Foster, Marco Spain and colleagues, with an educational brittany from [employer]. Review of Systems Const Denies chills, Denies fatigue, Denies fever(s), Denies headache(s) and Denies weakness ENT Denies dizziness and Denies headache(s) Card Denies dyspnea Resp Denies cough, Denies dyspnea, Denies wheezing and Denies other (shortness of breath) Musc Denies numbness and Denies tingling Neuro Denies dizziness, Denies headache(s), Denies numbness, Denies tingling and Denies weakness Psych Denies anxiety and Denies depression Endo Denies fatigue Aller/Immun Denies wheezing Physical exam (Primary Care) Vital Signs: Last Vital Signs Temp 97.5 F 01/30/25 11:14 Pulse 72 01/30/25 11:14 Resp 16 01/30/25 11:14 BP 116/76 01/30/25 11:14 Pulse Ox 97 01/30/25 11:14 Oxygen Delivery Method Room Air 01/30/25 11:14 BMI result Body Mass Index 19.8 Tobacco/Smoking Status: Tobacco use Status Tobacco use date assessed 01/30/25 01/30/25 11:21 Patient Tobacco Use Status Never used Tobacco 01/30/25 11:21 e-Cigarette/Vaping Use Never Used 01/30/25 11:21 Thrive Assessment: Date of Thrive Assessment Date Thrive assessed 03/21/24 01/30/25 11:21 Currently or been in a relationship where the following occur: I choose not to answer Const General: well developed; No acute distress Nutritional Appearance: well nourished Orientation/consciousness: patient oriented x3 HENMT Head: Yes normocephalic and Yes atraumatic Eyes General: appearance normal, both eyes and all related structures Pupils: Equal, round and reactive pupils present EOM: EOMs intact bilaterally Resp Effort & Inspection: normal respiratory effort Auscultation: clear to auscultation bilaterally Cardio Rate: regular rate Rhythm: regular rhythm Heart sounds: S1 normal heart sound present, S2 normal heart sound present, no gallops, no murmurs and no rubs Neuro General: patient oriented x3 and gait normal Cranial nerves: Yes Equal, round and reactive pupils present Psych Affect: normal affect Results AMB Hemoglobin A1c AMB Hemoglobin A1c 5.2 % Last Edit by Kimberly Lei CMA on 01/30/25 11:52 AMB Hemoglobin A1c previously reported as 5.3 Kimberly Lei 01/30/25 11:52 Results Reviewed Results Reviewed: Laboratory Last Values Hgb A1c (Clinic) 5.2 % (4.0-6.0) 01/30/25 11:23 Coding Level of Care Code Est Pt Level 4 (58180) Diagnoses Essential hypertension I10 Acquired hypothyroidism E03.9 Hypothyroidism type: acquired Mild anemia D64.9 Elevated fasting glucose R73.01 Assessment & Plan Assessment & Plan (1) Essential hypertension: Code(s): I10 - Essential (primary) hypertension Category: Medical Plan: Blood pressure is controlled. Goal is less than 140/90 Continue current medication (2) Hypothyroidism: Code(s): E03.9 - Hypothyroidism, unspecified Category: Medical Qualifiers: Hypothyroidism type: acquired Qualified Code(s): E03.9 - Hypothyroidism, unspecified Plan: Now followed by Endocrine Levothyroxine increased to full dose of 12 mcg daily Follow-up with endocrinology as recommended (3) Mild anemia: Code(s): D64.9 - Anemia, unspecified Category: Medical Plan: Patient had mild persistent anemia Labs were ordered at last visit but she has not had those drawn yet She will get these drawn today and we can follow-up at our next visit. Will call patient if action is required sooner (4) Elevated fasting glucose: Code(s): R73.01 - Impaired fasting glucose Category: Medical Plan: A1c 5.2% Normal range Continue healthy diet. Will monitor periodically Orders: Orders AMB Hemoglobin A1c Today R73.01 - Impaired fasting glucose Medications: Changed From levothyroxine 1 tab (112mcg) daily Ross-Fr, 1/2 tab (56mcg) Sa orally daily; 90 days 90 tabs 3RF To levothyroxine 1
== END 2025-01-30 12:14 | disposition home or self-care (01) ==
LOC: HO.HMCFM 11:09
PROVIDERS: PCP Family Medicine; Visit Provider Family Medicine
DX: I10 Essential (primary) hypertension (principal); E03.9 Hypothyroidism, unspecified; D64.9 Anemia, unspecified; R73.01 Impaired fasting glucose

== ENCOUNTER → 2025-01-30 11:08 | Outpatient (BNVA) | payer MEDICARE, OTHER, SELFPAY | PROVIDERS: PCP Family Medicine; Visit Provider Family Medicine | DX: I10 Essential (primary) hypertension (principal); E03.9 Hypothyroidism, unspecified; D64.9 Anemia, unspecified; R73.01 Impaired fasting glucose | CPT/HCPCS: 83036; 99212 ==